=== PATIENT | female | born 1980 | race Caucasian/White ===

== ENCOUNTER 2017-01-12 12:20 | Emergency (ER) | payer OTHER ==
[2017-01-12 12:31] VITALS: TEMP 98.5
--- NOTE | 2017-01-12 13:08 | XR ---
EXAMINATION TYPE: XR foot complete LT DATE OF EXAM: 01/12/2017 12:57 PM COMPARISON: 11/14/2016 HISTORY: 36-year-old female left second digit pain and bruising after crushing injury yesterday TECHNIQUE: 3 views FINDINGS: There is a Lima's toe and an oblique fracture through the proximal aspect of the second middle phal anx. There is minimal cortical step-off medially but otherwise without significant displacement. IMPRESSION: Oblique fracture of the second middle phalanx. No significant displacement. ICD 10: Initial encounter acute post traumatic fracture.
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
[2017-01-12 13:33] VITALS: BP 144/80; PULSE 70; RESP 18
== END 2017-01-12 13:32 | disposition home or self-care (01) ==
LOC: EC 12:20
DX: S92.515A Nondisplaced fracture of proximal phalanx of left lesser toe(s), initial encounter for closed fracture (principal); W23.0XXA Caught, crushed, jammed, or pinched between moving objects, initial encounter; J44.9 Chronic obstructive pulmonary disease, unspecified; M79.7 Fibromyalgia; F32.9 Major depressive disorder, single episode, unspecified; F41.9 Anxiety disorder, unspecified; Z79.51 Long term (current) use of inhaled steroids; Z79.899 Other long term (current) drug therapy; Z91.041 Radiographic dye allergy status; Z88.8 Allergy status to other drugs, medicaments and biological substances
CPT/HCPCS: 99283

== ENCOUNTER 2017-10-14 23:06 | Emergency (ER) | payer OTHER ==
[2017-10-14 23:16] VITALS: BP 135/96; PULSE 97; RESP 18; TEMP 98.8
[2017-10-14] MEDS ORDERED: IBUPROFEN 600 MG STARTER PACK 4 TAB BTL PO STA (23:49)
[2017-10-14] MEDS ORDERED: AMOXIC-POT CLAV 875MG STARTER 2 EACH TABLET PO STA (23:49)
--- NOTE | 2017-10-14 23:49 | ED ---
General Adult HPI - General Chief complaint: ENT Stated complaint: ear pain/dizzy Time Seen by Provider: 10/14/17 23:38 Source: patient, family, RN notes reviewed Mode of arrival: ambulatory Limitations: no limitations - History of Present Illness Initial comments: 37 yo female presents to the ER with cc of right-sided ear pain. She states that this started today. Since a long history of ear infections she's had surgery on the ear canal in the past. She denies any fever chills cough cold symptoms. She states she is having this throbbing pain to the ear. There is no nausea or vomiting. She was concerned due to her continued symptoms so she thought that she should be evaluated. Patient denies any recent shortness of breath, chest pain, back pain, abdominal pain, nausea vomiting, numbness or tingling, dysuria or hematuria, constipation or diarrhea, headaches or visual changes, or any other current symptoms. - Related Data Home Medications Medication Instructions Recorded Confirmed Albuterol Inhaler [Ventolin 2 puff INHALATION RT-Q4H PRN 05/15/14 10/14/17 Inhaler] Beclomethasone Dipropionate [Qvar 1 puff INHALATION RT-BID 05/15/14 10/14/17 80 mcg/puff] Albuterol Nebulized [Ventolin 2.5 mg INHALATION RT-Q4H PRN 07/20/16 10/14/17 Nebulized] Medroxyprogesterone Acetate 150 mg IM Q90D 10/14/17 10/14/17 [Depo-Provera] Paxil (Unknown Dose) 1 tab PO DAILY 10/14/17 10/14/17 Wellbutrin (Unknown Dose) 1 tab PO DAILY 10/14/17 10/14/17 Previous Rx's Medication Instructions Recorded Amoxicillin/Potassium Clav 1 tab PO Q12HR #20 tab 10/14/17 [Augmentin 875-125 Tablet] Allergies Allergy/AdvReac Type Severity Reaction Status Date / Time ascorbic acid Allergy Anaphylaxis Verified 10/14/17 23:16 [From Emergen-C Vitamin D-Calcium] calcium combination no.27 Allergy Anaphylaxis Verified 10/14/17 23:16 [From Emergen-C Vitamin D-Calcium] cholecalciferol (vitamin D3) Allergy Anaphylaxis Verified 10/14/17 23:16 [From Emergen-C Vitamin D-Calcium] diphenhydramine HCl Allergy Anaphylaxis Verified 10/14/17 23:41 [From Benadryl] Iodinated Contrast- Oral and Allergy Anaphylaxis Verified 10/14/17 23:16 IV Dye [Iodinated Contrast Media - IV Dye] methylprednisolone Allergy Rash/Hives Verified 10/14/17 23:16 [From Medrol] multivitamin with minerals Allergy Anaphylaxis Verified 10/14/17 23:16 [From Emergen-C Vitamin D-Calcium] Review of Systems ROS Statement: Those systems with pertinent positive or pertinent negative responses have been documented in the HPI. ROS Other: All systems not noted in ROS Statement are negative. Past Medical History Past Medical History: Asthma, COPD, Fibromyalgia Additional Past Medical History / Comment(s): DDD, tmj History of Any Multi-Drug Resistant Organisms: None Reported Past Surgical History: Adenoidectomy, Cholecystectomy, Ear Surgery, Tonsillectomy Past Psychological History: Anxiety, Depression Smoking Status: Never smoker Past Alcohol Use History: None Reported Past Drug Use History: None Reported General Exam - General Exam Comments Initial Comments: General exam: Alert, active, comfortable in no apparent distress Head: Normocephalic Eyes: Normal reaction of pupils, equal size, normal range of extraocular motion Ears: normal external ear canals, pink tympanic membranes with normal cone of light on the left, patient does appear to have a bulging erythematous right tympanic membrane. Nose: clear with pink turbinates Throat: no erythema or exudates with normal sized tonsils Neck: no masses, no nuchal rigidity Chest: no chest wall deformity Lungs: equal air entry with no crackles or wheeze CVS: S1 and S2 normal with no audible mumurs, regular rhythm Abdomen: no hepatosplenomegaly, normal bowel sounds, no guarding or rigidity Spine: no scoliosis or deformity Skin: no rashes Neurological: No focal deficits, tone is normal in all 4 extremities Limitations: no limitations Course Vital Signs 10/14/17 23:14 Temperature 98.8 F Pulse Rate 97 Respiratory 18 Rate Blood Pressure 135/96 O2 Sat by Pulse 98 Oximetry Medical Decision Making - Medical Decision Making 37-year-old female presents with what appears to be a right otitis media. This elicits patient antibiotics for home. We discussed follow-up return parameters all questions. Patient stated that she understood and she is in agreement this plan. All questions have been answered. She will be discharged. Disposition Clinical Impression: Right otitis media Disposition: HOME SELF-CARE Condition: Stable Instructions: Otitis Media (ED) Additional Instructions: Please use medication as discussed. Please follow up with family doctor if symptoms have not improved over the next two days. Please return to the emergency room if your symptoms increase or worsen or for any other concerns. Prescriptions: Amoxicillin/Potassium Clav [Augmentin 875-125 Tablet] 1 tab PO Q12HR #20 tab Referrals: Terence Mota MD [Primary Care Provider] - 1-2 days Time of Disposition: 23:49
== END 2017-10-15 00:04 | disposition home or self-care (01) ==
LOC: EC 23:06
DX: H66.91 Otitis media, unspecified, right ear (principal); J44.9 Chronic obstructive pulmonary disease, unspecified; F32.9 Major depressive disorder, single episode, unspecified; F41.9 Anxiety disorder, unspecified; Z79.3 Long term (current) use of hormonal contraceptives; Z79.51 Long term (current) use of inhaled steroids; Z79.899 Other long term (current) drug therapy; Z88.8 Allergy status to other drugs, medicaments and biological substances; Z91.041 Radiographic dye allergy status; Z98.890 Other specified postprocedural states
CPT/HCPCS: 99282

== ENCOUNTER 2018-01-28 17:17 | Emergency (ER) | payer OTHER ==
[2018-01-28 17:48] VITALS: RESP 18; TEMP 99
[2018-01-28] MEDS ORDERED: ACETAMINOPHEN TAB 500 MG TAB PO STA (18:03)
[2018-01-28] MEDS ORDERED: IPRATROPIUM-ALBUTEROL 3 ML NEB INHALATION STA (18:03)
--- NOTE | 2018-01-28 18:25 | XR ---
EXAMINATION TYPE: XR ribs LT w pa chest xray DATE OF EXAM: 01/28/2018 COMPARISON: 09/19/2016 HISTORY: Pain TECHNIQUE: 5 views FINDINGS: Heart and mediastinum are normal. Lungs are clear. There is no sign of pleural effusion or pneumothorax. The left ribs appear intact. IMPRESSION: Normal chest. Normal left ribs.
[2018-01-28 18:37] VITALS: PULSE 96
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
== END 2018-01-28 19:02 | disposition home or self-care (01) ==
LOC: EC 17:17
DX: S20.212A Contusion of left front wall of thorax, initial encounter (principal); R51 Headache; J44.9 Chronic obstructive pulmonary disease, unspecified; F41.9 Anxiety disorder, unspecified; F32.9 Major depressive disorder, single episode, unspecified; Z79.51 Long term (current) use of inhaled steroids; Z79.899 Other long term (current) drug therapy; V89.2XXA Person injured in unspecified motor-vehicle accident, traffic, initial encounter
CPT/HCPCS: 94640; 99284

== ENCOUNTER 2018-02-19 16:52 | Emergency (ER) | payer OTHER ==
[2018-02-19 17:02] VITALS: RESP 16
[2018-02-19] MEDS ORDERED: ASPIRIN 81 MG PO STA (17:14)
[2018-02-19] MEDS ORDERED: SODIUM CHLORIDE 0.9% 1,000 ML IV STA (17:14)
[2018-02-19] MEDS ORDERED: IPRATROPIUM-ALBUTEROL 3 ML NEB INHALATION STA (17:15)
[2018-02-19 17:39] LABS: Basophils % (A) 0 %; Eosinophils # (A) 0.3 k/uL (0-0.7); Eosinophils % (A) 4 %; HCT 38.1 % (34.0-46.0); HGB 13.3 gm/dL (11.4-16.0); Lymphocytes # (A) 1.6 k/uL (1.0-4.8); Lymphocytes % (A) 22 %; MCH 31.4 pg (25.0-35.0); MCHC 34.8 g/dL (31.0-37.0); MCV 90.1 fL (80.0-100.0); Mean Platelet Volume 7.9; Monocytes # (A) 0.3 k/uL (0-1.0); Monocytes % (A) 4 %; Neutrophils # (A) 5.1 k/uL (1.3-7.7); Neutrophils % (A) 69 %; Platelet Count 215 k/uL (150-450); RBC 4.23 m/uL (3.80-5.40); RDW 13.8 % (11.5-15.5); WBC 7.5 k/uL (3.8-10.6)
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
[2018-02-19 17:49] LABS: ALT 30 U/L (9-52); AST 25 U/L (14-36); Albumin 3.8 g/dL (3.5-5.0); Alkaline Phosphatase 113 U/L (38-126); Anion Gap 12 mmol/L; Blood Urea Nitrogen 12 mg/dL (7-17); Calcium 8.8 mg/dL (8.4-10.2); Carbon Dioxide 22 mmol/L (22-30); Chloride 107 mmol/L (98-107); Glucose 77 mg/dL (74-99); Magnesium 1.9 mg/dL (1.6-2.3); Potassium 4.1 mmol/L (3.5-5.1); Sodium 141 mmol/L (137-145); Total Bilirubin 0.4 mg/dL (0.2-1.3); Total Protein 6.4 g/dL (6.3-8.2)
[2018-02-19 17:54] LABS: Creatine Kinase 139 U/L (30-135)
--- NOTE | 2018-02-19 17:57 | XR ---
EXAMINATION: XR chest 2V DATE AND TIME: 02/19/2018 5:48 PM ORDERING PROVIDER: Eliza Leblanc CLINICAL INDICATION: Chest Pain TECHNIQUE: PA and lateral COMPARISON: 01/28/2018 DESCRIPTION: The lungs are clear. The pleural spaces are negative. The cardiac silhouette is not enlarged. The skeletal structures are intact without focal findings. The overlying soft tissues are prominent. IMPRESSION: NO ACUTE PROCESS.
[2018-02-19 18:04] LABS: D-Dimer 0.23 mg/L FEU (<0.60); Partial Thromboplastin Time 24.1 sec (22.0-30.0); Prothrombin Time 9.8 sec (9.0-12.0)
[2018-02-19 18:08] LABS: Creatine Kinase MB 0.8 ng/mL (0.0-2.4); Troponin I <0.012 ng/mL (0.000-0.034)
[2018-02-19 18:36] VITALS: BP 144/86; PULSE 93; TEMP 98.9
== END 2018-02-19 18:35 | disposition home or self-care (01) ==
LOC: EC 16:52
DX: R07.1 Chest pain on breathing (principal); R11.0 Nausea; R06.02 Shortness of breath; J44.9 Chronic obstructive pulmonary disease, unspecified; F32.9 Major depressive disorder, single episode, unspecified; F41.9 Anxiety disorder, unspecified; Z79.51 Long term (current) use of inhaled steroids; Z79.899 Other long term (current) drug therapy; Z88.8 Allergy status to other drugs, medicaments and biological substances; Z91.041 Radiographic dye allergy status; Z53.8 Procedure and treatment not carried out for other reasons
CPT/HCPCS: 36415; 71046; 80053; 82550; 82553; 83735; 84484; 85025; 85379; 85610; 85730; 93005; 94640; 96360; 99285

== ENCOUNTER 2018-06-28 12:59 | Emergency (ER) | payer OTHER ==
[2018-06-28 13:14] VITALS: BP 119/85; PULSE 104; RESP 18; TEMP 98.5
--- NOTE | 2018-06-28 13:49 | ED ---
General Adult HPI - General Chief complaint: Back Pain/Injury Stated complaint: back pain Time Seen by Provider: 06/28/18 13:32 Source: patient, RN notes reviewed Mode of arrival: ambulatory Limitations: physical limitation - History of Present Illness Initial comments: Patient is a 38-year-old female with significant past medical history for low back pain, presented to the emergency room today with chief complaint of increased pain to her lower back and left side. She does admit some numbness and tingling sensation going down the left and right legs. She states this started just 2 days ago. She does admit that she is not had any bowel or bladder incontinence retention. Denies any saddle anesthesia. Patient states that she's been trying ibuprofen and some topical creams with little relief. She does admit that is worse with movements of bending, turning, and twisting. Patient denies any specific injury or trauma to cause the symptoms. Patient denies any recent fever, chills, shortness of breath, chest pain, abdominal pain , nausea or vomiting, dysuria or hematuria, constipation or diarrhea, headaches or visual changes, or any other complaints. - Related Data Home Medications Medication Instructions Recorded Confirmed Albuterol Inhaler [Ventolin 2 puff INHALATION RT-Q4H PRN 05/15/14 02/19/18 Inhaler] Beclomethasone Dipropionate [Qvar 2 puff INHALATION RT-BID 05/15/14 02/19/18 80 mcg/puff] Albuterol Nebulized [Ventolin 2.5 mg INHALATION RT-Q4H PRN 07/20/16 02/19/18 Nebulized] Medroxyprogesterone Acetate 150 mg IM Q90D 10/14/17 02/19/18 [Depo-Provera] PARoxetine HCL [Paxil] 40 mg PO DAILY 02/19/18 02/19/18 buPROPion HCL [Wellbutrin Sr] 200 mg PO DAILY 02/19/18 02/19/18 Previous Rx's Medication Instructions Recorded Ibuprofen 600 mg PO Q6HR #20 tablet 02/19/18 Acetaminophen Tab [Tylenol] 1,000 mg PO TID 5 Days tablet 06/28/18 Cyclobenzaprine [Flexeril] 10 mg PO TID #20 tab 06/28/18 Ibuprofen [Motrin] 800 mg PO Q6HR #30 tab 06/28/18 predniSONE 50 mg PO DAILY #5 tab 06/28/18 Allergies Allergy/AdvReac Type Severity Reaction Status Date / Time ascorbic acid Allergy Anaphylaxis Verified 06/28/18 13:14 [From Emergen-C Vitamin D-Calcium] calcium combination no.27 Allergy Anaphylaxis Verified 06/28/18 13:14 [From Emergen-C Vitamin D-Calcium] cholecalciferol (vitamin D3) Allergy Anaphylaxis Verified 06/28/18 13:14 [From Emergen-C Vitamin D-Calcium] diphenhydramine HCl Allergy Anaphylaxis Verified 06/28/18 13:14 [From Benadryl] Iodinated Contrast- Oral and Allergy Anaphylaxis Verified 06/28/18 13:14 IV Dye [Iodinated Contrast Media - IV Dye] methylprednisolone Allergy Rash/Hives Verified 06/28/18 13:14 [From Medrol] multivitamin with minerals Allergy Anaphylaxis Verified 06/28/18 13:14 [From Emergen-C Vitamin D-Calcium] Review of Systems ROS Statement: Those systems with pertinent positive or pertinent negative responses have been documented in the HPI. ROS Other: All systems not noted in ROS Statement are negative. Past Medical History Past Medical History: Asthma, COPD, Fibromyalgia Additional Past Medical History / Comment(s): DDD, tmj History of Any Multi-Drug Resistant Organisms: None Reported Past Surgical History: Adenoidectomy, Cholecystectomy, Ear Surgery, Tonsillectomy Past Psychological History: Anxiety, Depression Smoking Status: Never smoker Past Alcohol Use History: None Reported Past Drug Use History: None Reported General Exam - General Exam Comments Initial Comments: General: The patient is awake and alert, in no distress, and does not appear acutely ill. Eye: Pupils are equal, round and reactive to light, extra-ocular movements are intact. No nystagmus. There is normal conjunctiva bilaterally. No signs of icterus. Ears, nose, mouth and throat: There are moist mucous membranes and no oral lesions. Neck: The neck is supple, there is no tenderness or JVD. Cardiovascular: There is a regular rate and rhythm. No murmur, rub or gallop is appreciated. Respiratory: Lungs are clear to auscultation, respirations are non-labored, breath sounds are equal. No wheezes, stridor, rales, or rhonchi. Musculoskeletal: Has good range of motion. Patient does have tenderness throughout the lumbar spine and paravertebral both on left and right sides. Strength 5/5. Sensation intact. Pulses equal bilaterally 2+. Neurological: A&O x 3. CN II-XII intact, There are no obvious motor or sensory deficits. Coordination appears grossly intact. Speech is normal. Skin: Skin is warm and dry and no rashes or lesions are noted. Psychiatric: Cooperative, appropriate mood & affect, normal judgment. Limitations: physical limitation Course Vital Signs 06/28/18 13:12 Temperature 98.5 F Pulse Rate 104 H Respiratory 18 Rate Blood Pressure 119/85 O2 Sat by Pulse 95 Oximetry Medical Decision Making - Medical Decision Making Patient has no bowel or bladder incontinence retention. No saddle anesthesia. Patient does have pain reproduced lower lumbar on exam. Signs and symptoms of concern and reason for emergent MRI were discussed. Patient is advised follow- up the family doctor in the next 1-2 days to discuss a MRI for the symptoms if they're not improving. Patient will be started on muscle relaxers, anti- inflammatories, and steroid for her symptoms. Advised to return if any symptoms increase or worsen or for any concerns. Disposition Clinical Impression: Acute exacerbation of chronic low back pain Disposition: HOME SELF-CARE Condition: Good Instructions: Acute Low Back Pain (ED) Additional Instructions: Please follow-up the family physician and back specialist over the next 2 days. Please use medications as prescribed. Please return to emergency room symptoms increase or worsen as discussed. Prescriptions: Acetaminophen Tab [Tylenol] 1,000 mg PO TID 5 Days tablet Cyclobenzaprine [Flexeril] 10 mg PO TID #20 tab Ibuprofen [Motrin] 800 mg PO Q6HR #30 tab predniSONE 50 mg PO DAILY #5 tab Is patient prescribed a controlled substance at d/c from ED?: No Referrals: Juanito Gutierrez Jr, DO [Primary Care Provider] - 1-2 days Time of Disposition: 13:46
== END 2018-06-28 14:10 | disposition home or self-care (01) ==
LOC: EC 12:59
DX: G89.29 Other chronic pain (principal); M54.5 Low back pain; R20.2 Paresthesia of skin; J44.9 Chronic obstructive pulmonary disease, unspecified; M79.7 Fibromyalgia; F41.9 Anxiety disorder, unspecified; F32.9 Major depressive disorder, single episode, unspecified; Z90.49 Acquired absence of other specified parts of digestive tract; Z98.890 Other specified postprocedural states; Z79.3 Long term (current) use of hormonal contraceptives; Z79.51 Long term (current) use of inhaled steroids; Z79.899 Other long term (current) drug therapy; Z88.8 Allergy status to other drugs, medicaments and biological substances; Z91.041 Radiographic dye allergy status
CPT/HCPCS: 99283

== ENCOUNTER 2018-09-10 21:29 | Emergency (ER) | payer OTHER ==
[2018-09-10] MEDS ORDERED: ACETAMINOPHEN TAB 325 MG TAB PO STA (22:40)
[2018-09-10] MEDS ORDERED: IBUPROFEN 400 MG TAB PO STA (22:40)
--- NOTE | 2018-09-10 22:46 | ED ---
General Adult HPI - General Chief complaint: Recheck/Abnormal Lab/Rx Stated complaint: All over pain Time Seen by Provider: 09/10/18 21:53 Source: patient Mode of arrival: ambulatory Limitations: no limitations - History of Present Illness Initial comments: This patient is a 38-year-old woman who presents to be evaluated for diffuse myalgias. The patient states that she started feeling symptoms coming on a bit afternoon. She states she was having some aching in the back muscles and the shoulder muscles. I subsequently also having aches in the hips and thighs. She states that it felt like fibromyalgia but she didn't think she had done anything to cause an exacerbation. Patient also was feeling hot and cold and when she came here was found have fever. She denied other symptoms of infection , including no congestion and cough or sore throat. No ear pain. No cough or dyspnea. No urinary symptoms. No vomiting or diarrhea. No rash. -: hour(s) Quality: aching Consistency: constant Improves with: none Worsens with: movement Associated Symptoms: fever/chills Treatments Prior to Arrival: none - Related Data Home Medications Medication Instructions Recorded Confirmed Albuterol Inhaler [Ventolin 2 puff INHALATION RT-Q4H PRN 05/15/14 09/10/18 Inhaler] Albuterol Nebulized [Ventolin 2.5 mg INHALATION RT-Q4H PRN 07/20/16 09/10/18 Nebulized] Previous Rx's Medication Instructions Recorded Cyclobenzaprine [Flexeril] 10 mg PO TID #15 tab 09/11/18 predniSONE 20 mg PO BID #8 tab 09/11/18 Allergies Allergy/AdvReac Type Severity Reaction Status Date / Time ascorbic acid Allergy Anaphylaxis Verified 09/10/18 21:43 [From Emergen-C Vitamin D-Calcium] calcium combination no.27 Allergy Anaphylaxis Verified 09/10/18 21:43 [From Emergen-C Vitamin D-Calcium] cholecalciferol (vitamin D3) Allergy Anaphylaxis Verified 09/10/18 21:43 [From Emergen-C Vitamin D-Calcium] diphenhydramine HCl Allergy Anaphylaxis Verified 09/10/18 21:43 [From Benadryl] Iodinated Contrast- Oral and Allergy Anaphylaxis Verified 09/10/18 21:43 IV Dye [Iodinated Contrast Media - IV Dye] methylprednisolone Allergy Rash/Hives Verified 09/10/18 21:43 [From Medrol] multivitamin with minerals Allergy Anaphylaxis Verified 09/10/18 21:43 [From Emergen-C Vitamin D-Calcium] Review of Systems ROS Statement: Those systems with pertinent positive or pertinent negative responses have been documented in the HPI. ROS Other: All systems not noted in ROS Statement are negative. Constitutional: Reports: fever, chills Eyes: Denies: vision change ENT: Denies: ear pain, throat pain, congestion Respiratory: Denies: cough, dyspnea Cardiovascular: Denies: chest pain, palpitations, syncope Gastrointestinal: Denies: abdominal pain, nausea, vomiting Genitourinary: Denies: dysuria, frequency, hematuria Musculoskeletal: Reports: myalgia Skin: Denies: rash Neurological: Denies: headache, weakness, numbness Past Medical History Past Medical History: Asthma, COPD, Fibromyalgia Additional Past Medical History / Comment(s): DDD, tmj History of Any Multi-Drug Resistant Organisms: None Reported Past Surgical History: Adenoidectomy, Cholecystectomy, Ear Surgery, Tonsillectomy Past Psychological History: Anxiety, Depression Smoking Status: Never smoker Past Alcohol Use History: None Reported Past Drug Use History: None Reported General Exam Limitations: no limitations General appearance: alert, in no apparent distress, obese Head exam: Present: atraumatic, normocephalic Eye exam: Present: normal appearance. Absent: scleral icterus, conjunctival injection ENT exam: Present: normal oropharynx, mucous membranes moist, TM's normal bilaterally, normal external ear exam Neck exam: Present: normal inspection, full ROM, lymphadenopathy. Absent: tenderness, meningismus Respiratory exam: Present: wheezes (Mild expiratory wheeze). Absent: respiratory distress, rales, rhonchi, stridor Cardiovascular Exam: Present: regular rate, normal rhythm, normal heart sounds. Absent: systolic murmur, diastolic murmur, rubs, gallop GI/Abdominal exam: Present: soft. Absent: distended, tenderness, guarding, rebound, rigid, mass Extremities exam: Present: normal inspection, normal capillary refill. Absent: pedal edema, calf tenderness Back exam: Present: normal inspection. Absent: CVA tenderness (R), CVA tenderness (L) Skin exam: Present: warm, dry, intact, normal color. Absent: rash Course Vital Signs 09/10/18 09/10/18 09/11/18 21:32 23:35 00:47 Temperature 101.0 F H 99.9 F H Pulse Rate 118 H 118 H 109 H Respiratory 20 18 Rate Blood Pressure 157/86 126/88 O2 Sat by Pulse 96 95 Oximetry Medical Decision Making - Lab Data Result diagrams: 09/10/18 21:54 09/10/18 21:54 Lab Results 09/10/18 09/10/18 09/10/18 Range/Units 21:54 21:54 21:54 WBC 4.0 (3.8-10.6) k/uL RBC 4.37 (3.80-5.40) m/uL Hgb 13.9 (11.4-16.0) gm/dL Hct 40.2 (34.0-46.0) % MCV 91.9 (80.0-100.0) fL MCH 31.8 (25.0-35.0) pg MCHC 34.6 (31.0-37.0) g/dL RDW 13.4 (11.5-15.5) % Plt Count 150 (150-450) k/uL Neutrophils % 79 % Lymphocytes % 13 % Monocytes % 5 % Eosinophils % 1 % Basophils % 0 % Neutrophils # 3.2 (1.3-7.7) k/uL Lymphocytes # 0.5 L (1.0-4.8) k/uL Monocytes # 0.2 (0-1.0) k/uL Eosinophils # 0.1 (0-0.7) k/uL Basophils # 0.0 (0-0.2) k/uL Sodium 139 (137-145) mmol/L Potassium 4.4 (3.5-5.1) mmol/L Chloride 105 (98-107) mmol/L Carbon Dioxide 24 (22-30) mmol/L Anion Gap 10 mmol/L BUN 12 (7-17) mg/dL Creatinine 0.83 (0.52-1.04) mg/dL Est GFR (CKD-EPI)AfAm >90 (>60 ml/min/1.73 sqM) Est GFR (CKD-EPI)NonAf >90 (>60 ml/min/1.73 sqM) Glucose 105 H (74-99) mg/dL Calcium 9.7 (8.4-10.2) mg/dL Urine Color Urine Appearance (Clear) Urine pH (5.0-8.0) Ur Specific Elysian (1.001-1.035) Urine Protein (Negative) Urine Glucose (UA) (Negative) Urine Ketones (Negative) Urine Blood (Negative) Urine Nitrite (Negative) Urine Bilirubin (Negative) Urine Urobilinogen (<2.0) mg/dL Ur Leukocyte Esterase (Negative) Urine RBC (0-5) /hpf Urine WBC (0-5) /hpf Ur Squamous Epith Cells (0-4) /hpf Amorphous Sediment (None) /hpf Urine Bacteria (None) /hpf Urine Mucus (None) /hpf Urine HCG, Qual Not Detected (Not Detectd) Influenza Type A RNA (Not Detectd) Influenza Type B (PCR) (Not Detectd) 09/10/18 09/10/18 Range/Units 21:54 21:54 WBC (3.8-10.6) k/uL RBC (3.80-5.40) m/uL Hgb (11.4-16.0) gm/dL Hct (34.0-46.0) % MCV (80.0-100.0) fL MCH (25.0-35.0) pg MCHC (31.0-37.0) g/dL RDW (11.5-15.5) % Plt Count (150-450) k/uL Neutrophils % % Lymphocytes % % Monocytes % % Eosinophils % % Basophils % % Neutrophils # (1.3-7.7) k/uL Lymphocytes # (1.0-4.8) k/uL Monocytes # (0-1.0) k/uL Eosinophils # (0-0.7) k/uL Basophils # (0-0.2) k/uL Sodium (137-145) mmol/L Potassium (3.5-5.1) mmol/L Chloride (98-107) mmol/L Carbon Dioxide (22-30) mmol/L Anion Gap mmol/L BUN (7-17) mg/dL Creatinine (0.52-1.04) mg/dL Est GFR (CKD-EPI)AfAm (>60 ml/min/1.73 sqM) Est GFR (CKD-EPI)NonAf (>60 ml/min/1.73 sqM) Glucose (74-99) mg/dL Calcium (8.4-10.2) mg/dL Urine Color Yellow Urine Appearance Cloudy H (Clear) Urine pH 8.0 (5.0-8.0) Ur Specific Elysian 1.016 (1.001-1.035) Urine Protein Negative (Negative) Urine Glucose (UA) Negative (Negative) Urine Ketones Negative (Negative) Urine Blood Negative (Negative) Urine Nitrite Negative (Negative) Urine Bilirubin Negative (Negative) Urine Urobilinogen <2.0 (<2.0) mg/dL Ur Leukocyte Esterase Small H (Negative) Urine RBC 3 (0-5) /hpf Urine WBC 20 H (0-5) /hpf Ur Squamous Epith Cells 9 H (0-4) /hpf Amorphous Sediment Rare H (None) /hpf Urine Bacteria Few H (None) /hpf Urine Mucus Rare H (None) /hpf Urine HCG, Qual (Not Detectd) Influenza Type A RNA Not Detected (Not Detectd) Influenza Type B (PCR) Not Detected (Not Detectd) Disposition Clinical Impression: Viral syndrome Disposition: HOME SELF-CARE Condition: Good Instructions: Fever in Adults (ED), Viral Syndrome (ED) Prescriptions: Cyclobenzaprine [Flexeril] 10 mg PO TID #15 tab predniSONE 20 mg PO BID #8 tab Is patient prescribed a controlled substance at d/c from ED?: No Referrals: Juanito Gutierrez Jr, [Primary Care Provider] - 1-2 days
[2018-09-10] MEDS ORDERED: ALBUTEROL NEBULIZED 2.5 MG/3 ML INHALATION STA (22:56)
[2018-09-10 22:58] LABS: Basophils % (A) 0 %; Eosinophils # (A) 0.1 k/uL (0-0.7); Eosinophils % (A) 1 %; HCT 40.2 % (34.0-46.0); HGB 13.9 gm/dL (11.4-16.0); Lymphocytes # (A) 0.5 k/uL (1.0-4.8); Lymphocytes % (A) 13 %; MCH 31.8 pg (25.0-35.0); MCHC 34.6 g/dL (31.0-37.0); MCV 91.9 fL (80.0-100.0); Mean Platelet Volume 7.6; Monocytes # (A) 0.2 k/uL (0-1.0); Monocytes % (A) 5 %; Neutrophils # (A) 3.2 k/uL (1.3-7.7); Neutrophils % (A) 79 %; Platelet Count 150 k/uL (150-450); RBC 4.37 m/uL (3.80-5.40); RDW 13.4 % (11.5-15.5)
[2018-09-10 23:03] LABS: Amorphous Sediment,Urine Rare /hpf; Appearance,Urine Cloudy (Clear); Bacteria,Urine Few /hpf; Bilirubin,Urine Negative (Negative); Blood,Urine Negative (Negative); Color,Urine Yellow; Glucose,Urine (UA) Negative (Negative); Ketones,Urine Negative (Negative); Leukocyte Esterase,Urine Small (Negative); Mucus,Urine Rare /hpf; Nitrite,Urine Negative (Negative); Protein,Urine Negative (Negative); RBC,Urine 3 /hpf (0-5); Specific Gravity,Urine 1.016 (1.001-1.035); Squamous Epithelial Cell,Urine 9 /hpf (0-4); Urobilinogen,Urine <2.0 mg/dL (<2.0); WBC,Urine 20 /hpf (0-5)
[2018-09-10 23:07] LABS: Anion Gap 10 mmol/L; Blood Urea Nitrogen 12 mg/dL (7-17); Calcium 9.7 mg/dL (8.4-10.2); Carbon Dioxide 24 mmol/L (22-30); Chloride 105 mmol/L (98-107); Glucose 105 mg/dL (74-99); Potassium 4.4 mmol/L (3.5-5.1); Sodium 139 mmol/L (137-145)
[2018-09-11 00:48] VITALS: BP 126/88; PULSE 109; RESP 18; TEMP 99.9
[2018-09-11] MEDS ORDERED: CYCLOBENZAPRINE 10 MG TAB PO STA (01:15)
== END 2018-09-11 01:35 | disposition home or self-care (01) ==
LOC: EC 21:29
DX: B34.9 Viral infection, unspecified (principal); J44.9 Chronic obstructive pulmonary disease, unspecified; Z88.8 Allergy status to other drugs, medicaments and biological substances; Z91.041 Radiographic dye allergy status
CPT/HCPCS: 36415; 80048; 81001; 81025; 85025; 87502; 94640; 99284

== ENCOUNTER → 2018-12-01 | Outpatient (CLI) | payer OTHER ==
--- NOTE | 2018-12-01 16:43 | MR ---
EXAMINATION TYPE: MR joceline/kristin wo con DATE OF EXAM: 12/01/2018 COMPARISON: None HISTORY: Pain in thoracic spine / Low back pain CONTRAST: Performed utilizing 0 mL intravenous Gadavist gadolinium contrast. TECHNIQUE: Multiplanar, multiecho imaging on a 3.0 Linnette magnet is performed through the thoracic spi ne. Spinal cord maintains normal signal through its visualized course. Vertebral body alignment is normal. Vertebral body heights are preserved. There is a very tiny central protrusion at T7-8. Series 601 image 17. No significant thecal sac compr ession is evident. No cord contact or spinal canal stenosis is present. Disc heights appear preserved . There is disc desiccation T9-10. Disc height is preserved. No spinal canal stenosis is evident. IMPRESSIONS: 1. There may be a very tiny central protrusion at the T7-8 region. 2. Disc desiccation T9-T10. EXAMINATION TYPE: MR joceline/kristin wo con DATE OF EXAM: 12/01/2018 COMPARISON: 05/14/2013 HISTORY: Pain in thoracic spine / Low back pain CONTRAST: 0 mL intravenous Gadavist. TECHNIQUE: Multiplanar, multisequence images of the lumbar spine were acquired. FINDINGS: L5-S1: Central disc herniation is present with broad base. This has anterior thecal sac contact witho ut compression or stenosis. Exiting nerve roots appear nondisplaced. This area appears smaller than t he comparison of 2012. There is mild disc space narrowing and disc desiccation to this level. L4-L5: No significant disc bulge or disc herniation. No spinal canal stenosis. No foraminal stenosi s. L3-L4: No significant disc bulge or disc herniation. No spinal canal stenosis. No foraminal stenosi s. L2-L3: There is disc desiccation through this level. Mild disc space narrowing is present. No signifi cant disc bulge or disc herniation is evident. No spinal canal stenosis or neural foraminal stenosis is present. L1-L2: No significant disc bulge or disc herniation. No spinal canal stenosis. No foraminal stenosi s. T12-L1: No significant disc bulge or disc herniation. No spinal canal stenosis. No foraminal stenos is. IMPRESSION: 1. Broad-based central disc herniation L5-S1 appears smaller than the comparison study. This has thec al sac contact without compression or stenosis. 2. Stable mild disc space narrowing L2-L3 with disc desiccation, unchanged from 2013.
== END ==
LOC: RADMRIMAIN 10:21
PROVIDERS: ATTEND Family Medicine
DX: M48.061 Spinal stenosis, lumbar region without neurogenic claudication (principal); M51.27 Other intervertebral disc displacement, lumbosacral region; M54.6 Pain in thoracic spine
CPT/HCPCS: 72146; 72148

== ENCOUNTER 2018-12-31 14:46 | Emergency (ER) | payer OTHER ==
[2018-12-31 14:51] VITALS: RESP 18; TEMP 98.2
[2018-12-31] MEDS ORDERED: KETOROLAC 60 MG/2 ML VIAL IM STA (15:45)
--- NOTE | 2018-12-31 15:47 | ED ---
General Adult HPI - General Chief complaint: ENT Stated complaint: Pressure behind ear into jaw and side of neck Source: patient, RN notes reviewed Mode of arrival: ambulatory Limitations: no limitations - History of Present Illness Initial comments: Patient is a 38-year-old female with history of left TM surgery and TMJ disorder who presents to the emergency department with complaint of bilateral ear pain and jaw pain that started yesterday. She reports taking Tylenol one hour ago and ibuprofen at 4 AM. Patient denies any recent fever, chills, runny nose or nasal congestion, shortness of breath, chest pain, back pain, abdominal pain, nausea or vomiting, numbness or tingling, headaches or visual changes, or any other complaints. - Related Data Home Medications Medication Instructions Recorded Confirmed Albuterol Inhaler [Ventolin 2 puff INHALATION RT-Q4H PRN 05/15/14 09/10/18 Inhaler] Albuterol Nebulized [Ventolin 2.5 mg INHALATION RT-Q4H PRN 07/20/16 09/10/18 Nebulized] Previous Rx's Medication Instructions Recorded Cyclobenzaprine [Flexeril] 10 mg PO TID #15 tab 09/11/18 predniSONE 20 mg PO BID #8 tab 09/11/18 Allergies Allergy/AdvReac Type Severity Reaction Status Date / Time ascorbic acid Allergy Anaphylaxis Verified 09/10/18 21:43 [From Emergen-C Vitamin D-Calcium] calcium combination no.27 Allergy Anaphylaxis Verified 09/10/18 21:43 [From Emergen-C Vitamin D-Calcium] cholecalciferol (vitamin D3) Allergy Anaphylaxis Verified 09/10/18 21:43 [From Emergen-C Vitamin D-Calcium] diphenhydramine HCl Allergy Anaphylaxis Verified 09/10/18 21:43 [From Benadryl] Iodinated Contrast- Oral and Allergy Anaphylaxis Verified 09/10/18 21:43 IV Dye [Iodinated Contrast Media - IV Dye] methylprednisolone Allergy Rash/Hives Verified 09/10/18 21:43 [From Medrol] multivitamin with minerals Allergy Anaphylaxis Verified 09/10/18 21:43 [From Emergen-C Vitamin D-Calcium] Review of Systems ROS Statement: Those systems with pertinent positive or pertinent negative responses have been documented in the HPI. ROS Other: All systems not noted in ROS Statement are negative. Past Medical History Past Medical History: Asthma, COPD, Fibromyalgia Additional Past Medical History / Comment(s): DDD, tmj History of Any Multi-Drug Resistant Organisms: None Reported Past Surgical History: Adenoidectomy, Cholecystectomy, Ear Surgery, Tonsillectomy Past Psychological History: Anxiety, Depression Smoking Status: Never smoker Past Alcohol Use History: None Reported Past Drug Use History: None Reported General Exam Limitations: no limitations General appearance: alert, in no apparent distress Head exam: Present: atraumatic, normocephalic Eye exam: Present: normal appearance, PERRL ENT exam: Present: normal oropharynx, TM's normal bilaterally (Left TM post- surgical.), normal external ear exam, other (Patient uncomfortable with opening her mouth.) Neck exam: Present: normal inspection. Absent: lymphadenopathy Respiratory exam: Present: normal lung sounds bilaterally. Absent: wheezes, rales, rhonchi Cardiovascular Exam: Present: regular rate, normal rhythm Neurological exam: Present: alert, oriented X3 Skin exam: Present: warm, dry Course Vital Signs 12/31/18 12/31/18 12/31/18 14:48 15:28 16:37 Temperature 98.2 F Pulse Rate 118 H 102 H 98 Respiratory 18 18 18 Rate Blood Pressure 133/93 139/92 O2 Sat by Pulse 96 96 95 Oximetry Medical Decision Making - Medical Decision Making Patient states she already sees a doctor for her TMJ disorder; patient instructed to follow-up with her doctor. Case discussed in detail with attending physician Dr. Roldan. Disposition Clinical Impression: TMJ (temporomandibular joint disorder) Disposition: HOME SELF-CARE Condition: Good Instructions (If sedation given, give patient instructions): Temporomandibular Disorder (ED) Additional Instructions: Follow-up with your PCP and the doctor that you see for treatment of your TMJ disorder in 1-2 days. Return to the emergency department if your symptoms worsen or other concerns. Is patient prescribed a controlled substance at d/c from ED?: No Referrals: Terence Mtoa MD [Primary Care Provider] - 1-2 days Time of Disposition: 16:42
[2018-12-31 16:38] VITALS: BP 139/92; PULSE 98
== END 2018-12-31 17:05 | disposition home or self-care (01) ==
LOC: EC 14:46
DX: M26.603 Bilateral temporomandibular joint disorder, unspecified (principal); J44.9 Chronic obstructive pulmonary disease, unspecified; Z98.890 Other specified postprocedural states; Z88.8 Allergy status to other drugs, medicaments and biological substances; Z91.041 Radiographic dye allergy status
CPT/HCPCS: 99283; 96372; J1885

== ENCOUNTER 2019-01-29 18:08 | Emergency (ER) | payer OTHER ==
[2019-01-29 18:17] VITALS: BP 154/106; PULSE 103; RESP 20; TEMP 98.6
[2019-01-29] MEDS ORDERED: HYDROcodone/APAP 5-325MG 1 EACH TAB PO STA (18:27)
--- NOTE | 2019-01-29 18:31 | ED ---
General Adult HPI - General Chief complaint: ENT Stated complaint: TMJ Time Seen by Provider: 01/29/19 18:20 Source: patient Mode of arrival: ambulatory Limitations: no limitations - History of Present Illness Initial comments: Dictation was produced using [employer] dictation software. please excuse any grammatical, word or spelling errors. Chief Complaint: 38-year-old female past medical history of chronic pain, COPD, asthma presents with bilateral jaw pain. History of Present Illness: 38-year-old female presents with bilateral jaw pain. She states she's had these issues for several months now. Patient states she went to her pain specialist and inquired about treating that. HEENT specialist that they've not treat anything involving the oral area. 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 Patient states that she has pain when she tries to open her mouth. She states that so bad that she is unable to use her breathing machine. Patient was seen in the emergency department for similar complaint. He does clench her teeth when she gets stressed and at night. The ROS documented in this emergency department record has been reviewed and confirmed by me. Those systems with pertinent positive or negative responses have been documented in the HPI. All other systems are other negative and/or noncontributory. PHYSICAL EXAM: General Impression: Alert and oriented x3, not in acute distress HEENT: Normocephalic atraumatic, extra-ocular movements intact, pupils equal and reactive to light bilaterally, mucous membranes moist, tenderness to palpation over the bilateral TMJs, limited mouth opening secondary to antalgia Cardiovascular: Heart regular rate and rhythm, S1&S2 audible, no murmurs, rubs o r gallops Chest: Lungs clear to auscultation bilaterally, no rhonchi, no wheeze, no rales Abdomen: Bowel sounds present, abdomen soft, non-tender, non-distended, no organomegaly Musculoskeletal: Pulses present and equal in all extremities, no peripheral edema Motor: no focal deficits noted Neurological: CN II-XII grossly intact, no focal motor or sensory deficits noted Skin: Intact with no visualized rashes Psych: Normal affect and mood ED course: 38-year-old female presents with TMJ arthralgia. As upon arrival shows findings within acceptable limits. Patient given 1 dose of [place] here. N o concern for TMJ dislocation given that patient's jaw is mobile. Patient given referral to oral surgeon. She is told to continue cold warm compresses intermittently. Patient told to eat soft food diet for acute episodes. Patient told to continue taking Motrin. She is given a muscle relaxer. She is told that she will need a splint/bite-block. She is told not to clench her teeth excessively. Patient given referral to oral surgeon. Patient understandable agreeable to plan. - Related Data Home Medications Medication Instructions Recorded Confirmed Albuterol Inhaler [Ventolin 2 puff INHALATION RT-Q4H PRN 05/15/14 01/29/19 Inhaler] Albuterol Nebulized [Ventolin 2.5 mg INHALATION RT-Q4H PRN 07/20/16 01/29/19 Nebulized] Ibuprofen [Motrin] 600 mg PO Q6HR 01/29/19 01/29/19 Medroxyprogesterone Acetate 150 mg IM DIRECTED 01/29/19 01/29/19 [Depo-Provera] PARoxetine HCL [Paxil] 40 mg PO DAILY 01/29/19 01/29/19 buPROPion HCL [Wellbutrin SR] 150 mg PO DAILY 01/29/19 01/29/19 Previous Rx's Medication Instructions Recorded Baclofen [Lioresal] 5 mg PO TID PRN #12 tablet 01/29/19 Allergies Allergy/AdvReac Type Severity Reaction Status Date / Time ascorbic acid Allergy Anaphylaxis Verified 01/29/19 18:14 [From Emergen-C Vitamin D-Calcium] calcium combination no.27 Allergy Anaphylaxis Verified 01/29/19 18:14 [From Emergen-C Vitamin D-Calcium] cholecalciferol (vitamin D3) Allergy Anaphylaxis Verified 01/29/19 18:14 [From Emergen-C Vitamin D-Calcium] diphenhydramine HCl Allergy Anaphylaxis Verified 01/29/19 18:14 [From Benadryl] Iodinated Contrast- Oral and Allergy Anaphylaxis Verified 01/29/19 18:14 IV Dye [Iodinated Contrast Media - IV Dye] methylprednisolone Allergy Rash/Hives Verified 01/29/19 18:14 [From Medrol] multivitamin with minerals Allergy Anaphylaxis Verified 01/29/19 18:14 [From Emergen-C Vitamin D-Calcium] Review of Systems ROS Statement: Those systems with pertinent positive or pertinent negative responses have been documented in the HPI. ROS Other: All systems not noted in ROS Statement are negative. Past Medical History Past Medical History: Asthma, COPD, Fibromyalgia Additional Past Medical History / Comment(s): DDD, tmj History of Any Multi-Drug Resistant Organisms: None Reported Past Surgical History: Adenoidectomy, Cholecystectomy, Ear Surgery, Tonsillectomy Past Psychological History: Anxiety, Depression Smoking Status: Never smoker Past Alcohol Use History: None Reported Past Drug Use History: None Reported General Exam Limitations: no limitations Course Vital Signs 01/29/19 18:14 Temperature 98.6 F Pulse Rate 103 H Respiratory 20 Rate Blood Pressure 154/106 O2 Sat by Pulse 96 Oximetry Disposition Clinical Impression: TMJ arthritis Disposition: HOME SELF-CARE Condition: Good Instructions (If sedation given, give patient instructions): Temporomandibular Disorder (ED) Prescriptions: Baclofen [Lioresal] 5 mg PO TID PRN #12 tablet PRN Reason: Pain Is patient prescribed a controlled substance at d/c from ED?: No Referrals: Juanito Gutierrez Jr, [Primary Care Provider] - 1-2 days Natalio Mccall DDS [STAFF PHYSICIAN] - 1-2 days Time of Disposition: 18:31
== END 2019-01-29 18:39 | disposition home or self-care (01) ==
LOC: EC 18:08
DX: M26.69 Other specified disorders of temporomandibular joint (principal); J44.9 Chronic obstructive pulmonary disease, unspecified; M79.7 Fibromyalgia; F41.9 Anxiety disorder, unspecified; F32.9 Major depressive disorder, single episode, unspecified; Z79.1 Long term (current) use of non-steroidal anti-inflammatories (NSAID); Z79.3 Long term (current) use of hormonal contraceptives; Z79.899 Other long term (current) drug therapy; Z88.8 Allergy status to other drugs, medicaments and biological substances; Z91.041 Radiographic dye allergy status
CPT/HCPCS: 99283

== ENCOUNTER → 2019-01-29 | Outpatient (CLI) | payer OTHER ==
[2019-01-29 11:48] VITALS: BP 139/99; PULSE 91; RESP 16
--- NOTE | 2019-01-29 12:13 | P.CONS ---
History of Present Illness - Reason for Consult Consult date: 01/29/19 - Chief Complaint Lower back pain - History of Present Illness This is a 38-year-old morbidly obese lady with a history of chronic lower back pain with radiation to the thighs bilaterally. The patient denies any numbness or tingling in the lower extremities or any weakness. She also denies any bowel or bladder dysfunction. The pain gets worse by any prolonged activities. It improves by using ibuprofen and resting. The patient had interventional pain procedures previously which helped her temporarily. She failed to respond to physical therapy previously. She still works full-time nurse aide. She denies using tobacco. Review of Systems Cardiovascular: Denies chest pain, Denies shortness of breath Respiratory: Denies cough Musculoskeletal: Reports as per HPI Neurological: Reports as per HPI Psychiatric: Reports depression Past Medical History Past Medical History: Asthma, COPD, Fibromyalgia Additional Past Medical History / Comment(s): DDD, tmj History of Any Multi-Drug Resistant Organisms: None Reported Past Surgical History: Adenoidectomy, Cholecystectomy, Ear Surgery, Tonsillectomy Past Psychological History: Anxiety, Depression Smoking Status: Never smoker Past Alcohol Use History: None Reported Past Drug Use History: None Reported Medications and Allergies Home Medications Medication Instructions Recorded Confirmed Type Albuterol Inhaler [Ventolin 2 puff INHALATION RT-Q4H PRN 05/15/14 01/29/19 History Inhaler] Albuterol Nebulized [Ventolin 2.5 mg INHALATION RT-Q4H PRN 07/20/16 01/29/19 History Nebulized] Ibuprofen [Motrin] 600 mg PO Q6HR 01/29/19 01/29/19 History Medroxyprogesterone Acetate 150 mg IM DIRECTED 01/29/19 01/29/19 History [Depo-Provera] PARoxetine HCL [Paxil] 40 mg PO DAILY 01/29/19 01/29/19 History buPROPion HCL [Wellbutrin SR] 150 mg PO DAILY 01/29/19 01/29/19 History Allergies Allergy/AdvReac Type Severity Reaction Status Date / Time ascorbic acid Allergy Anaphylaxis Verified 09/10/18 21:43 [From Emergen-C Vitamin D-Calcium] calcium combination no.27 Allergy Anaphylaxis Verified 09/10/18 21:43 [From Emergen-C Vitamin D-Calcium] cholecalciferol (vitamin D3) Allergy Anaphylaxis Verified 09/10/18 21:43 [From Emergen-C Vitamin D-Calcium] diphenhydramine HCl Allergy Anaphylaxis Verified 09/10/18 21:43 [From Benadryl] Iodinated Contrast- Oral and Allergy Anaphylaxis Verified 09/10/18 21:43 IV Dye [Iodinated Contrast Media - IV Dye] methylprednisolone Allergy Rash/Hives Verified 09/10/18 21:43 [From Medrol] multivitamin with minerals Allergy Anaphylaxis Verified 09/10/18 21:43 [From Emergen-C Vitamin D-Calcium] Physical Exam Vitals: Vital Signs Pulse Resp BP 01/29/19 11:33 91 16 139/99 Intake and Output 01/28/19 01/29/19 01/29/19 22:59 06:59 14:59 Other: Weight 104.326 kg - Constitutional General appearance: morbidly obese - EENT Eyes: PERRLA - Respiratory Respiratory: bilateral: CTA - Cardiovascular Rhythm: regular - Neurologic Neuro exam of the lower extremities showed normal and symmetrical muscle strength and deep tendon reflexes. She has significant tenderness in the lumbar paravertebral area. Straight leg raising test negative bilaterally Facet loading test positive bilaterally Neurologic: CNII-XII intact Results Results: Lumbar spine MRI in November 2018 showed broad-based central disc herniation at the L5-S1 level which has improved from previously and stable mild disc space narrowing at L2-L3 level there is no stenosis or compression of any nerve roots. Assessment and Plan Plan: This is a 38-year-old lady with the following diagnoses: Lumbar spondylosis without myelopathy Morbid obesity Asthma TMJ disease The patient may benefit from getting a diagnostic lumbar medial branch block and later on RFA on the medial branches of the diagnostic procedure was positive. The procedure was explained to the patient and her questions were answered.
== END ==
LOC: PNWHC3 11:13
PROVIDERS: ATTEND Anesthesiology
DX: M47.816 Spondylosis without myelopathy or radiculopathy, lumbar region (principal); E66.01 Morbid (severe) obesity due to excess calories; J45.909 Unspecified asthma, uncomplicated; M26.609 Unspecified temporomandibular joint disorder, unspecified side
CPT/HCPCS: 99211

== ENCOUNTER 2019-02-11 06:52 | Day surgery (SDC) | payer OTHER ==
[2019-02-05 11:10] VITALS: BMI 41.1
[~2019-02-11 06:52] MED LIST: SODIUM CHLORIDE 0.9% 500 ML 500 ML IV SCH
[2019-02-11 07:50] VITALS: RESP 16; TEMP 98.1
[2019-02-11] MEDS ORDERED: LACTATED RINGERS 1,000 ML IV ONE (07:58)
[2019-02-11] MEDS ORDERED: LIDOCAINE 1% 20 ML VIAL (10MG/ML) FOR IV START INTRADERMA ONE (07:59)
[2019-02-11] MEDS ORDERED: ONDANSETRON 4 MG/2 ML VIAL IVP ONE (08:10)
--- NOTE | 2019-02-11 09:09 | P.PCN ---
Date of Procedure: 02/11/19 Surgeon: Tremaine Aguilar Pathology: none sent Condition: stable Disposition: PACU Description of Procedure: PREOPERATIVE DIAGNOSIS : 1- Lumbar spondylosis with Facet Arthropathy wit hout myelopathy . 2- Lumber degenerative disc disease POSTOPERATIVE DIAGNOSIS: 1- Lumbar spondylosis with Facet Arthropathy without myelopathy . 2- Lumber degenerative disc disease PROCEDURE: Diagnostic bilateral L3 -4 , L4 -5 , and L5-S1 medial branch block under fluoroscopy ANESTHESIA: Local with 1% lidocaine; IV moderate conscious sedation with Versed 2 mg . EBL: Negligible COMPLICATION: None. PROCEDURE INDICATION: Chronic low back pain secondary to Facet arthropathy unresponsive to conservative treatment. PROCEDURE DESCRIPTION: the patient was seen and identified in the preop holding area , risks and benefits and possible complications of the procedure and a lternatives were discussed with the patient, and the patient agreed to proceed with the procedure and signed the consent. IV was started and vital signs monitored during the procedure and fluoroscopy was used to maximize the benefit and accuracy of the needle placement, sedation was given to decrease patient anxiety, patient was taken to the procedure room and placed in prone position vital signs monitored. The patient was brought into the procedure room and placed in prone position. Skin was prepped with Chloraprep and draped in a sterile manner. Lidocaine 1% was used to numb the skin up at the target points that were chosen as follows: at the L5-S1 level which corresponds to the dorsal ramus of L5 the target points were at the superior medial aspect of the sacral ala on each side of the spine on the AP view of fluoroscopy, and for the L3 and L4 medial branches the target points were the connection between the transverse process and the superior to go process of L4 and L5 respectively on the oblique views of fluoroscopy. I used 22-gauge 3-1/2 inch Quincke spinal needles for this procedure and after contacting bone at the target points mentioned above I injected 1 mL of a mixture of Kenalog 40 mg +5 MLS of Marcaine 0.5% PF . Patient tolerated procedure well. At the end of the procedure the needles removed and a bandage applied after the skin was cleaned the cleaning solution. patient was then taken to the recovery room in stable condition and monitored in the recovery room for 20-30 minutes and discharged home in stable condition after discharge criteria met .
[2019-02-11] MEDS ORDERED: LACTATED RINGERS 600 ML IV ONE (09:11)
[2019-02-11 09:28] VITALS: BP 122/89; PULSE 92
--- NOTE | 2019-02-11 10:02 | FL ---
EXAMINATION TYPE: FL guided pain mgmt statistic DATE OF EXAM: 02/11/2019 FLUOROSCOPY Fluoroscopy time of 18 seconds was used during lumbar facet block. 3 image/s document/s the procedur e.
== END 2019-02-11 09:42 | disposition home or self-care (01) ==
LOC: ORPAIN 06:52
PROVIDERS: ATTEND Anesthesiology
DX: M47.816 Spondylosis without myelopathy or radiculopathy, lumbar region (principal); M51.36 Other intervertebral disc degeneration, lumbar region; G89.29 Other chronic pain; M54.10 Radiculopathy, site unspecified; E66.01 Morbid (severe) obesity due to excess calories; J44.9 Chronic obstructive pulmonary disease, unspecified; M79.7 Fibromyalgia; F41.9 Anxiety disorder, unspecified; F32.9 Major depressive disorder, single episode, unspecified; M26.609 Unspecified temporomandibular joint disorder, unspecified side; Z79.899 Other long term (current) drug therapy; Z79.1 Long term (current) use of non-steroidal anti-inflammatories (NSAID); Z88.8 Allergy status to other drugs, medicaments and biological substances; Z91.041 Radiographic dye allergy status; Z68.41 Body mass index [BMI] 40.0-44.9, adult
CPT/HCPCS: 81025; 64493; 64494; 64495; J2250; J3301; J2405; J3010; 99152

== ENCOUNTER 2019-02-25 06:53 | Day surgery (SDC) | payer OTHER ==
[2019-02-23 12:10] VITALS: BMI 41.1
[~2019-02-25 06:53] MED LIST changes: +LACTATED RINGERS 1,000 ML IV SCH; -SODIUM CHLORIDE 0.9% 500 ML 500 ML IV SCH
[2019-02-25 07:25] VITALS: TEMP 97
[2019-02-25] MEDS ORDERED: ONDANSETRON 4 MG/2 ML VIAL IVP ONE (07:32)
--- NOTE | 2019-02-25 08:22 | P.PCN ---
Date of Procedure: 02/25/19 Surgeon: Tremaine Aguilar Pathology: none sent Condition: stable Disposition: PACU Description of Procedure: Description of Procedure: PREOPERATIVE DIAGNOSIS : 1- Lumbar spondylosis with Facet Arthropathy without myelopathy . 2- Lumber degenerative disc disease POSTOPERATIVE DIAGNOSIS: 1- Lumbar spondylosis with Facet Arthropathy without myelopathy . 2- Lumber degenerative disc disease PROCEDURE: Diagnostic bilateral L3 -4 , L4 -5 , and L5-S1 medial branch block under fluoroscopy ANESTHESIA: Local with 1% lidocaine; IV moderate conscious sedation with Versed 2 mg and fentanyl 50 mics . EBL: Negligible COMPLICATION: None. PROCEDURE INDICATION: Chronic low back pain secondary to Facet arthropathy unresponsive to conservative treatment. PROCEDURE DESCRIPTION: the patient was seen and identified in the preop holding area , risks and benefits and possible complications of the procedure and alternatives were discussed with the patient, and the patient agreed to proceed with the procedure and signed the consent. IV was started and vital signs monitored during the procedure and fluoroscopy was used to maximize the benefit and accuracy of the needle placement, sedation was given to decrease patient anxiety, patient was taken to the procedure room and placed in prone position vital signs monitored. The patient was brought into the procedure room and placed in prone position. Skin was prepped with Chloraprep and draped in a sterile manner. Lidocaine 1% was used to numb the skin up at the target points that were chosen as follows: at the L5-S1 level which corresponds to the dorsal ramus of L5 the target points were at the superior medial aspect of the sacral ala on each side of the spine on the AP view of fluoroscopy, and for the L3 and L4 medial branches the target points were the connection between the transverse process and the superior to go process of L4 and L5 respectively on the oblique views of fluoroscopy. I used 22-gauge 3-1/2 inch Quincke spinal needles for this procedure and after contacting bone at the target points mentioned above I injected 1 mL of a mixture of Kenalog 40 mg +5 MLS of Marcaine 0.5% PF . Patient tolerated procedure well. At the end of the procedure the needles removed and a bandage applied after the skin was cleaned the cleaning solution. patient was then taken to the recovery room in stable condition and monitored in the recovery room for 20-30 minutes and discharged home in stable condition after discharge criteria met .
[2019-02-25] MEDS ORDERED: IV FLUID CONTINUATION 1,000 ML IV ONE ×2 (08:28)
[2019-02-25 08:46] VITALS: BP 125/78; PULSE 82; RESP 18
--- NOTE | 2019-02-25 08:48 | FL ---
EXAMINATION TYPE: FL guided pain mgmt statistic DATE OF EXAM: 02/25/2019 CLINICAL HISTORY: Low back pain. TECHNIQUE: Fluoroscopy. COMPARISON: None. FINDINGS: Fluoroscopic guidance was provided during pain relief procedure performed by Dr. Aguilar. A total of 10 seconds of fluoroscopic time was utilized during the procedure and 3 spot images are a cquired. Images acquired shows needle localization at several levels in the lower lumbar spine and l umbosacral junction bilaterally. IMPRESSION: As Above.
== END 2019-02-25 09:05 | disposition home or self-care (01) ==
LOC: ORPAIN 06:53
PROVIDERS: ATTEND Anesthesiology
DX: M47.816 Spondylosis without myelopathy or radiculopathy, lumbar region (principal); M51.36 Other intervertebral disc degeneration, lumbar region; G89.29 Other chronic pain; E66.01 Morbid (severe) obesity due to excess calories; Z88.8 Allergy status to other drugs, medicaments and biological substances; Z91.041 Radiographic dye allergy status; Z68.41 Body mass index [BMI] 40.0-44.9, adult
CPT/HCPCS: 81025; 64493; 64494; 64495; J2250; J3301; J2405; J3010; 99152

== ENCOUNTER 2019-03-23 21:37 | Emergency (ER) | payer OTHER ==
[2019-03-23 21:53] VITALS: BP 139/92; PULSE 86; RESP 17; TEMP 98.7
[2019-03-23] MEDS ORDERED: KETOROLAC 60 MG/2 ML VIAL IM STA (22:39)
--- NOTE | 2019-03-23 23:24 | ED ---
General Adult HPI - General Chief complaint: Dental/Oral Stated complaint: Jaw to Ear Pain Time Seen by Provider: 03/23/19 21:59 Source: patient, RN notes reviewed, old records reviewed Mode of arrival: ambulatory Limitations: no limitations - History of Present Illness Initial comments: 39-year-old female patient past medical history of fibromyalgia, chronic pain, TMJ disorder presents today with exacerbation of right TMJ pain. Patient states that this feels similar to pain she has experienced in the past. Patient denies any recent falls or trauma, patient denies any other complaints. Patient does have meeting with pain management next week, however has not been able too control pain at home with Tylenol and Motrin. Patient denies any new or c oncerning symptoms. Patient has been chest pain shortness breath abdominal pain nausea vomiting or diarrhea. Systemic: Pt denies fatigue, myalgia, fever/chills, rash. Pt denies weakness, night sweats, weight loss. Neuro: Pt denies headache, visual disturbances, syncope or pre-syncope. HEENT: Pt denies ocular discharge or irritation, otalgia, rhinorrhea, pharyngitis or notable lymphadenopathy. Cardiopulmonary: Pt denies chest pain, SOB, heart palpitations, dyspnea on exertion. Abdominal/GI: Pt denies abdominal pain, n/v/d. : Pt denies dysuria, burning w/ urination, frequency/urgency. Denies new onset urinary or bowel incontinence. MSK: Pt denies myalgia, loss of strength or function in extremities. Neuro: Pt denies new onset weakness, paresthesias. - Related Data Home Medications Medication Instructions Recorded Confirmed Albuterol Inhaler [Ventolin 2 puff INHALATION RT-Q4H PRN 05/15/14 03/23/19 Inhaler] Albuterol Nebulized [Ventolin 2.5 mg INHALATION RT-Q4H PRN 07/20/16 03/23/19 Nebulized] Ibuprofen [Motrin Ib] 200 mg PO DAILY PRN 01/29/19 03/23/19 Medroxyprogesterone Acetate 150 mg IM Q30D 01/29/19 03/23/19 [Depo-Provera] PARoxetine HCL [Paxil] 40 mg PO DAILY 01/29/19 03/23/19 buPROPion HCL [Wellbutrin SR] 150 mg PO DAILY 01/29/19 03/23/19 Beclomethasone Dipropionate [Qvar 2 puff INHALATION BID 02/05/19 03/23/19 80 mcg] Acetaminophen [Tylenol] 1,000 mg PO Q6H 03/23/19 03/23/19 Previous Rx's Medication Instructions Recorded Ibuprofen [Motrin] 600 mg PO Q6HR PRN #40 day 03/23/19 Allergies Allergy/AdvReac Type Severity Reaction Status Date / Time ascorbic acid Allergy Anaphylaxis Verified 03/23/19 21:53 [From Emergen-C Vitamin D-Calcium] calcium combination no.27 Allergy Anaphylaxis Verified 03/23/19 21:53 [From Emergen-C Vitamin D-Calcium] cholecalciferol (vitamin D3) Allergy Anaphylaxis Verified 03/23/19 21:53 [From Emergen-C Vitamin D-Calcium] diphenhydramine HCl Allergy Dyspnea Verified 03/23/19 21:53 [From Benadryl] Iodinated Contrast- Oral and Allergy Anaphylaxis Verified 03/23/19 21:53 IV Dye [Iodinated Contrast Media - IV Dye] multivitamin with minerals Allergy Anaphylaxis Verified 03/23/19 21:53 [From Emergen-C Vitamin D-Calcium] methylprednisolone AdvReac shaky & Verified 03/23/19 21:53 [From Medrol] anxious Review of Systems ROS Statement: Those systems with pertinent positive or pertinent negative responses have been documented in the HPI. ROS Other: All systems not noted in ROS Statement are negative. Past Medical History Past Medical History: Asthma, COPD, Fibromyalgia Additional Past Medical History / Comment(s): DDD, tmj, History of Any Multi-Drug Resistant Organisms: None Reported Past Surgical History: Adenoidectomy, Cholecystectomy, Ear Surgery, Tonsillectomy Past Anesthesia/Blood Transfusion Reactions: Motion Sickness, Postoperative Nausea & Vomiting (PONV) Past Psychological History: Anxiety, Depression Smoking Status: Never smoker Past Alcohol Use History: None Reported Past Drug Use History: None Reported General Exam - General Exam Comments Initial Comments: Constitutional: NAD, AOX3, Pt has pleasant affect. HEENT: NC/AT, trachea midline, neck supple, no lymphadenopathy. Posterior pharynx non erythematous, without exudates. External ears appear normal, without discharge. Mucous membranes moist. Eyes PERRLA, EOM intact. There is no scleral icterus. No pallor noted. Cardiopulmonary: RRR, no murmurs, rubs or gallops, no JVD noted. Lungs CTAB in anterior and posterior [place]. No peripheral edema. Abdominal exam: Abdomen soft and non-distended. Abdomen non-tender to palpation in all 4 quadrants. Bowel sounds active in LLQ. No hepatosplenomegaly. No ecchymosis Neuro: CN II-XII grossly intact. No nuchal rigidity. MSK: Pain with range of motion of jaw. No erythema, no fluctuance, no streaking, no warmth. No posterior calf tenderness bilaterally, homans sign negative bilaterally. Posterior tibialis and radial pulse +2 bilaterally. Sensation intact in upper and lower extremities. Full active ROM in upper and lower extremities, 5/5 stregnth. Limitations: no limitations Course Vital Signs 03/23/19 21:50 Temperature 98.7 F Pulse Rate 86 Respiratory 17 Rate Blood Pressure 139/92 O2 Sat by Pulse 97 Oximetry Medical Decision Making - Medical Decision Making 39-year-old female patient past medical history of fibromyalgia, chronic pain, TMJ disorder presents today with exacerbation of right TMJ pain. Patient states that this feels similar to pain she has experienced in the past. Patient denies any recent falls or trauma, patient denies any other complaints. Patient does have meeting with pain management next week, however has not been able too control pain at home with Tylenol and Motrin. Patient denies any new or concerning symptoms. Patient has been chest pain shortness breath abdominal pain nausea vomiting or diarrhea. Patient vital signs stable, patient says she is not due to Depo-Provera shot. Physical exam displayed: Pain with range of motion of jaw. No erythema, no fluctuance, no streaking, no warmth. Patient will be discharged with ibuprofen. Patient to follow up with primary care provider and pain management. Patient returned here condition worsens. Case discussed with Dr. Johnson. Disposition Clinical Impression: TMJ pain dysfunction syndrome Disposition: HOME SELF-CARE Condition: Stable Instructions (If sedation given, give patient instructions): Temporomandibular Disorder (ED) Additional Instructions: Patient to adhere to previously discussed treatment plan and will take medication(s) as directed. Patient to follow up with PCP in 1-2 days. Patient to return to ED if symptoms do not improve. Return to ER if condition worsens. Follow-up with pain management as scheduled. Prescriptions: Ibuprofen [Motrin] 600 mg PO Q6HR PRN #40 day PRN Reason: Pain Is patient prescribed a controlled substance at d/c from ED?: No Referrals: Terence Mota MD [Primary Care Provider] - 1-2 days
== END 2019-03-23 23:59 | disposition home or self-care (01) ==
LOC: EC 21:37
DX: M26.621 Arthralgia of right temporomandibular joint (principal); J44.9 Chronic obstructive pulmonary disease, unspecified; M79.7 Fibromyalgia; F32.9 Major depressive disorder, single episode, unspecified; F41.9 Anxiety disorder, unspecified; Z79.51 Long term (current) use of inhaled steroids; Z79.899 Other long term (current) drug therapy; Z91.041 Radiographic dye allergy status; Z88.8 Allergy status to other drugs, medicaments and biological substances
CPT/HCPCS: 99283; 96372; J1885

== ENCOUNTER 2019-10-02 00:26 | Emergency (ER) | payer OTHER ==
--- NOTE | 2019-10-02 00:30 | ED ---
Chest Pain HPI - General Stated Complaint: chest pain Time Seen by Provider: 10/02/19 00:29 - History of Present Illness Initial Comments: Manisha is a 39-year-old female who presents to the emergency department today for evaluation of chest pain. Patient reports that earlier in the evening she began feeling pain in the right side of her upper chest. Pain was worse with palpation or movement. Pain was not associated with any diaphoresis, lighthead edness, shortness of breath and the pain was not exertional. Patient reports that she tried laying in a comfortable position but then noted that the pain seemed to radiate around to her back into her bilateral shoulders. Patient became anxious about this as she does have a family history of cardiac disease in her grandfather's and an uncle who in his 40s of a [place] therefore patient decided to come the ER for evaluation. She is a nonsmoker, nondiabetic, no known history of vascular disease or cardiac disease, no history DVT PE or clotting disorders. - Related Data Home Medications Medication Instructions Recorded Confirmed Albuterol Inhaler [Ventolin 2 puff INHALATION RT-Q4H PRN 05/15/14 03/23/19 Inhaler] Albuterol Nebulized [Ventolin 2.5 mg INHALATION RT-Q4H PRN 07/20/16 03/23/19 Nebulized] Ibuprofen [Motrin Ib] 200 mg PO DAILY PRN 01/29/19 03/23/19 Medroxyprogesterone Acetate 150 mg IM Q30D 01/29/19 03/23/19 [Depo-Provera] PARoxetine HCL [Paxil] 40 mg PO DAILY 01/29/19 03/23/19 buPROPion HCL [Wellbutrin SR] 150 mg PO DAILY 01/29/19 03/23/19 Beclomethasone Dipropionate [Qvar 2 puff INHALATION BID 02/05/19 03/23/19 80 mcg] Acetaminophen [Tylenol] 1,000 mg PO Q6H 03/23/19 03/23/19 Previous Rx's Medication Instructions Recorded Ibuprofen [Motrin] 600 mg PO Q6HR PRN #40 day 03/23/19 Allergies Allergy/AdvReac Type Severity Reaction Status Date / Time ascorbic acid Allergy Anaphylaxis Verified 03/23/19 21:53 [From Emergen-C Vitamin D-Calcium] calcium combination no.27 Allergy Anaphylaxis Verified 03/23/19 21:53 [From Emergen-C Vitamin D-Calcium] cholecalciferol (vitamin D3) Allergy Anaphylaxis Verified 03/23/19 21:53 [From Emergen-C Vitamin D-Calcium] diphenhydramine HCl Allergy Dyspnea Verified 03/23/19 21:53 [From Benadryl] Iodinated Contrast Media Allergy Anaphylaxis Verified 03/23/19 21:53 [Iodinated Contrast Media - IV Dye] multivitamin with minerals Allergy Anaphylaxis Verified 03/23/19 21:53 [From Emergen-C Vitamin D-Calcium] methylprednisolone AdvReac shaky & Verified 03/23/19 21:53 [From Medrol] anxious Review of Systems ROS Statement: Those systems with pertinent positive or pertinent negative responses have been documented in the HPI. ROS Other: All systems not noted in ROS Statement are negative. EKG Findings - EKG Comments: EKG Findings:: EKG was obtained due to complaint of chest pain, EKG was obtained at 12:35 AM, rate is 73, there is a P-wave before each QRS indicating sinus rhyt hm though there is some sinus arrhythmia noted. There is a normal axis, there are normal intervals, [place] 122, QRS 84, QTC is 440 there are no acute ST elevations or depressions there is no evidence of acute ischemia or infarction. Past Medical History Past Medical History: Asthma, COPD, Fibromyalgia Additional Past Medical History / Comment(s): DDD, tmj, History of Any Multi-Drug Resistant Organisms: None Reported Past Surgical History: Adenoidectomy, Cholecystectomy, Ear Surgery, Tonsillectomy Past Anesthesia/Blood Transfusion Reactions: Motion Sickness, Postoperative Nausea & Vomiting (PONV) Past Psychological History: Anxiety, Depression Smoking Status: Never smoker Past Alcohol Use History: None Reported Past Drug Use History: None Reported General Exam - General Exam Comments Initial Comments: Physical Exam GENERAL: Patient is well-developed and well-nourished. Patient is nontoxic and well- hydrated and is in no distress. HENT: Normocephalic, Atraumatic. EYES: PERRL, EOMI PULMONARY: Unlabored respirations. No audible rales rhonchi or wheezing was noted. CARDIOVASCULAR: There is a regular rate and rhythm without any murmurs gallops or rubs. ABDOMEN: Soft and nontender with normal bowel sounds. SKIN: Skin is clear with no lesions or rashes and otherwise unremarkable. : Deferred NEUROLOGIC: Patient is alert and oriented x3. Moving all extremities spontaneously MUSCULOSKELETAL: Normal extremities with adequate strength and full range of motion. No lower extremity swelling or edema. No calf tenderness. PSYCHIATRIC: Normal psychiatric evaluation. Course Vital Signs 10/02/19 10/02/19 00:28 01:32 Temperature 99.2 F Pulse Rate 87 76 Respiratory 18 18 Rate Blood Pressure 135/86 107/81 O2 Sat by Pulse 96 97 Oximetry Chest [facility] Patient was seen and evaluated, history is obtained from patient and signed history and physical exam concerning for muscular skeletal chest pain however the patient's family history, she is a young female labs were obtained including troponin and d-dimer. Labs are within normal limits d-dimer shot elevated troponin is not elevated. Patient resting comfortably and is comfortable with the plan for discharge home. Upon discussing the results patient admits that she does frequent suffer from costochondritis and initially this is very similar to previous events. Patient does first concern that she's just anxious due to recent illnesses in the family. Disposition Clinical Impression: Atypical chest pain Disposition: HOME SELF-CARE Condition: Stable Instructions (If sedation given, give patient instructions): Costochondritis (ED) Is patient prescribed a controlled substance at d/c from ED?: No Referrals: Terence Mota MD [STAFF PHYSICIAN] - 1-2 days
[2019-10-02 00:33] VITALS: RESP 18; TEMP 99.2
[2019-10-02 01:02] LABS: Basophils # (A) 0.1 k/uL (0-0.2); Basophils % (A) 2 %; Eosinophils # (A) 0.3 k/uL (0-0.7); Eosinophils % (A) 4 %; HGB 12.8 gm/dL (11.4-16.0); Lymphocytes # (A) 2.3 k/uL (1.0-4.8); Lymphocytes % (A) 33 %; MCHC 33.8 g/dL (31.0-37.0); MCV 91.8 fL (80.0-100.0); Mean Platelet Volume 9.2; Monocytes # (A) 0.3 k/uL (0-1.0); Monocytes % (A) 4 %; Neutrophils # (A) 3.9 k/uL (1.3-7.7); Neutrophils % (A) 56 %; Platelet Count 180 k/uL (150-450); RBC 4.14 m/uL (3.80-5.40); RDW 12.9 % (11.5-15.5)
--- NOTE | 2019-10-02 01:07 | XR ---
EXAMINATION TYPE: XR chest 2V DATE OF EXAM: 10/02/2019 COMPARISON: 02/19/2018 HISTORY: Chest pain TECHNIQUE: Frontal and lateral views of the chest are obtained. FINDINGS: Heart and mediastinum are normal. Lungs are clear. Diaphragm is normal. Bony thorax appear s normal. IMPRESSION: Normal chest. No change.
[2019-10-02 01:08] LABS: ALT 20 U/L (9-52); AST 21 U/L (14-36); African American GFR (CKD) >90 (>60 ml/min/1.73 sqM); Albumin 3.6 g/dL (3.5-5.0); Alkaline Phosphatase 99 U/L (38-126); Anion Gap 5 mmol/L; Blood Urea Nitrogen 11 mg/dL (7-17); Calcium 8.6 mg/dL (8.4-10.2); Carbon Dioxide 23 mmol/L (22-30); Chloride 111 mmol/L (98-107); Glucose 107 mg/dL (74-99); Magnesium 1.9 mg/dL (1.6-2.3); Sodium 139 mmol/L (137-145); Total Bilirubin 0.5 mg/dL (0.2-1.3); Total Protein 6.2 g/dL (6.3-8.2)
[2019-10-02 01:14] LABS: Potassium 4.1 mmol/L (3.5-5.1)
[2019-10-02 01:36] VITALS: BP 107/81; PULSE 76
== END 2019-10-02 02:00 | disposition home or self-care (01) ==
LOC: EC 00:26
DX: R07.89 Other chest pain (principal); R79.1 Abnormal coagulation profile; F41.9 Anxiety disorder, unspecified; J44.9 Chronic obstructive pulmonary disease, unspecified; M79.7 Fibromyalgia; F32.9 Major depressive disorder, single episode, unspecified; Z79.51 Long term (current) use of inhaled steroids; Z79.899 Other long term (current) drug therapy; Z88.8 Allergy status to other drugs, medicaments and biological substances; Z91.041 Radiographic dye allergy status; Z82.49 Family history of ischemic heart disease and other diseases of the circulatory system
CPT/HCPCS: 36415; 71046; 80053; 83735; 84484; 85025; 85379; 93005; 99285

== ENCOUNTER 2020-03-10 17:12 | Emergency (ER) | payer OTHER ==
[2020-03-10 17:26] VITALS: RESP 18
[2020-03-10] MEDS ORDERED: ORPHENADRINE 30 MG/ML 2 ML VIAL IM STA (18:19)
[2020-03-10] MEDS ORDERED: KETOROLAC 30 MG/ML 1 ML VIAL IM STA (18:19)
[2020-03-10] MEDS ORDERED: ACET/COD 300 MG/30 MG STARTER PACK 6 TAB BTL PO STA (18:20)
--- NOTE | 2020-03-10 18:21 | ED ---
Back Pain HPI - General Chief Complaint: Back Pain/Injury Stated Complaint: back pain Time Seen by Provider: 03/10/20 17:51 Source: patient Limitations: no limitations - History of Present Illness Initial Comments: 39-year-old female patient presents to the emergency department today for evaluation of back pain. Patient states that earlier today she was lifting a toe filled with groceries when she felt something pull in her mid back. Patient states the pain radiated from the mid back down to her legs. States the pain traveled down the back of her legs to the knee level. Denies numbness or tingling to the lower extremity. Denies a loss of bowel or bladder control or saddle anesthesia. Patient states she has had muscle spasm in the past and feels similar. States she did try taking Tylenol, naproxen, and ibuprofen without relief. States she is applied Biofreeze and ice to the back without relief. She denies any urinary symptoms, fever, or chills. Pain worsens with movement, especially position changes. Patient denies any recent rash, cough, shortness of breath, chest pain, abdominal pain, nausea, vomiting, diarrhea, constipation, dizziness, weakness, hematuria, dysuria, urinary urgency, urinary frequency, headache, visual changes, or any other complaints. - Related Data Home Medications Medication Instructions Recorded Confirmed Albuterol Inhaler (Bulk) [Ventolin 2 puff INHALATION RT-Q4H PRN 05/15/14 03/23/19 Inhaler] Albuterol Nebulized [Ventolin 2.5 mg INHALATION RT-Q4H PRN 07/20/16 03/23/19 Nebulized] Ibuprofen [Motrin Ib] 200 mg PO DAILY PRN 01/29/19 03/23/19 Medroxyprogesterone Acetate 150 mg IM Q30D 01/29/19 03/23/19 [Depo-Provera] PARoxetine HCL [Paxil] 40 mg PO DAILY 01/29/19 03/23/19 buPROPion HCL [Wellbutrin SR] 150 mg PO DAILY 01/29/19 03/23/19 Beclomethasone Dipropionate [Qvar 2 puff INHALATION BID 02/05/19 03/23/19 80 mcg] Acetaminophen [Tylenol] 1,000 mg PO Q6H 03/23/19 03/23/19 Previous Rx's Medication Instructions Recorded Ibuprofen [Motrin] 600 mg PO Q6HR PRN #40 day 03/23/19 Cyclobenzaprine [Flexeril] 10 mg PO TID #15 tab 03/10/20 Allergies Allergy/AdvReac Type Severity Reaction Status Date / Time ascorbic acid Allergy Anaphylaxis Verified 03/10/20 18:39 [From Emergen-C Vitamin D-Calcium] calcium combination no.27 Allergy Anaphylaxis Verified 03/10/20 18:39 [From Emergen-C Vitamin D-Calcium] cholecalciferol (vitamin D3) Allergy Anaphylaxis Verified 03/10/20 18:39 [From Emergen-C Vitamin D-Calcium] diphenhydramine HCl Allergy Dyspnea Verified 03/10/20 18:39 [From Benadryl] Iodinated Contrast Media Allergy Anaphylaxis Verified 03/10/20 18:39 [Iodinated Contrast Media - IV Dye] multivitamin with minerals Allergy Anaphylaxis Verified 03/10/20 18:39 [From Emergen-C Vitamin D-Calcium] methylprednisolone AdvReac shaky & Verified 03/10/20 18:39 [From Medrol] anxious Review of Systems ROS Statement: Those systems with pertinent positive or pertinent negative responses have been documented in the HPI. ROS Other: All systems not noted in ROS Statement are negative. Past Medical History Past Medical History: Asthma, COPD, Fibromyalgia Additional Past Medical History / Comment(s): DDD, tmj, History of Any Multi-Drug Resistant Organisms: None Reported Past Surgical History: Adenoidectomy, Cholecystectomy, Ear Surgery, Tonsillectomy Past Anesthesia/Blood Transfusion Reactions: Motion Sickness, Postoperative Nausea & Vomiting (PONV) Past Psychological History: Anxiety, Depression Smoking Status: Never smoker Past Alcohol Use History: None Reported Past Drug Use History: None Reported General Exam Limitations: no limitations General appearance: alert, in no apparent distress, other (This is a well- developed, well-nourished adult female patient in no acute distress. Vital signs upon presentation are temperature 98.9F, pulse 94, respirations 18, blood pressure 146/78, pulse ox 98% on room air.) Eye exam: Present: normal appearance, PERRL, EOMI. Absent: scleral icterus, co njunctival injection, periorbital swelling ENT exam: Present: normal exam, normal oropharynx, mucous membranes moist Respiratory exam: Present: normal lung sounds bilaterally. Absent: respiratory distress, wheezes, rales, rhonchi, stridor Cardiovascular Exam: Present: regular rate, normal rhythm, normal heart sounds. Absent: systolic murmur, diastolic murmur, rubs, gallop, clicks GI/Abdominal exam: Present: soft, normal bowel sounds. Absent: distended, tenderness, guarding, rebound, rigid Extremities exam: Present: normal inspection, full ROM, normal capillary refill, other (Skin to the lower extremities is pink, warm, dry. Cap refills less than 3 seconds. Pedal and posttibial pulses are 2+ and equal bilaterally.). Absent: tenderness, pedal edema, joint swelling, calf tenderness Back exam: Present: normal inspection, tenderness (There is tenderness over the bilateral latissimus muscles). Absent: vertebral tenderness Neurological exam: Present: alert, oriented X3, CN II-XII intact Psychiatric exam: Present: normal affect, normal mood Skin exam: Present: warm, dry, intact, normal color. Absent: rash Course Vital Signs 03/10/20 03/10/20 17:17 18:42 Temperature 98.9 F 98.0 F Pulse Rate 94 82 Respiratory 18 18 Rate Blood Pressure 146/78 136/82 O2 Sat by Pulse 98 98 Oximetry Medical Decision Making - Medical Decision Making 39-year-old female patient presented to the emergency department today for evaluation of increased back pain after lifting a heavy tub earlier today. Physical examination did reveal tenderness over the bilateral latissimus muscles. Patient was neurologically intact. Strength was 5/5 in the legs. She has no concerning symptoms for cauda equina. We'll treat for muscle spasm with anti-inflammatories and muscle relaxers. She is instructed to follow-up with her primary care physician for recheck in 1-2 days. Return parameters were discussed in detail. She verbalizes understanding and agrees with this plan. Disposition Clinical Impression: Muscle spasm of back Disposition: HOME SELF-CARE Condition: Good Instructions (If sedation given, give patient instructions): Muscle Spasm (ED), Back Pain (ED) Additional Instructions: Apply ice the first 24 hours and switch to warm moist heat. Take medications as directed. Perform gentle range of motion exercises. Follow-up with your primary care physician for recheck in 1-2 days. Return to the emergency department immediately for any new, worsening, or concerning symptoms. Prescriptions: Cyclobenzaprine [Flexeril] 10 mg PO TID #15 tab Is patient prescribed a controlled substance at d/c from ED?: No Referrals: Juanito Gutierrez Jr, [Primary Care Provider] - 1-2 days Time of Disposition: 18:21
[2020-03-10 18:46] VITALS: BP 136/82; PULSE 82; TEMP 98
== END 2020-03-10 18:43 | disposition home or self-care (01) ==
LOC: EC 17:12
DX: M62.830 Muscle spasm of back (principal); J44.9 Chronic obstructive pulmonary disease, unspecified; F41.9 Anxiety disorder, unspecified; F32.9 Major depressive disorder, single episode, unspecified; Z79.899 Other long term (current) drug therapy; Z88.8 Allergy status to other drugs, medicaments and biological substances; Z91.041 Radiographic dye allergy status
CPT/HCPCS: 99283; 96372 ×2; J2360; J1885

== ENCOUNTER 2020-07-07 02:15 | Emergency (ER) | payer OTHER ==
[2020-07-07 02:21] VITALS: BP 147/80; PULSE 99; RESP 16; TEMP 98.3
[2020-07-07] MEDS ORDERED: ACET/COD 300 MG/30 MG STARTER PACK 6 TAB BTL PO STA (03:01)
[2020-07-07] MEDS ORDERED: predniSONE 20 MG TAB PO STA (03:01)
--- NOTE | 2020-07-07 03:05 | ED ---
ENT HPI - General Chief complaint: Dental/Oral Stated complaint: Jaw Pain Time Seen by Provider: 07/07/20 02:48 Source: patient Mode of arrival: ambulatory Limitations: no limitations - History of Present Illness Initial comments: 's patient is a 40-year-old woman who presents to be evaluated for left TMJ pain. The patient states that had come on in the morning and been getting worse, now going on almost 24 hours. She does have history of previous TMJ. Patient denies any acute trauma to the mandible her head. No fever or chills. No eye symptoms. No neck pain or swelling. No dyspnea, trouble with speech or swallowing. Onset/Timin -: days(s) Severity: severe Quality: aching Consistency: constant Improves with: none Worsens with: eating, other - Related Data Home Medications Medication Instructions Recorded Confirmed Albuterol Inhaler (Mhu) [Ventolin 2 puff INHALATION RT-Q4H PRN 05/15/14 03/23/19 Inhaler] Albuterol Nebulized [Ventolin 2.5 mg INHALATION RT-Q4H PRN 07/20/16 03/23/19 Nebulized] Ibuprofen [Motrin Ib] 200 mg PO DAILY PRN 01/29/19 03/23/19 Medroxyprogesterone Acetate 150 mg IM Q30D 01/29/19 03/23/19 [Depo-Provera] PARoxetine HCL [Paxil] 40 mg PO DAILY 01/29/19 03/23/19 buPROPion HCL [Wellbutrin SR] 150 mg PO DAILY 01/29/19 03/23/19 Beclomethasone Dipropionate [Qvar 2 puff INHALATION BID 02/05/19 03/23/19 80 mcg] Acetaminophen [Tylenol] 1,000 mg PO Q6H 03/23/19 03/23/19 Previous Rx's Medication Instructions Recorded Ibuprofen [Motrin] 600 mg PO Q6HR PRN #40 day 03/23/19 Cyclobenzaprine [Flexeril] 10 mg PO TID #15 tab 03/10/20 Penicillin V Potassium [Pen Vee K] 500 mg PO QID #28 tablet 07/07/20 predniSONE 60 mg PO DAILY #30 tab 07/07/20 Allergies Allergy/AdvReac Type Severity Reaction Status Date / Time ascorbic acid Allergy Anaphylaxis Verified 07/07/20 02:20 [From Emergen-C Vitamin D-Calcium] calcium combination no.27 Allergy Anaphylaxis Verified 07/07/20 02:20 [From Emergen-C Vitamin D-Calcium] cholecalciferol (vitamin D3) Allergy Anaphylaxis Verified 07/07/20 02:20 [From Emergen-C Vitamin D-Calcium] diphenhydramine HCl Allergy Dyspnea Verified 07/07/20 02:20 [From Benadryl] Iodinated Contrast Media Allergy Anaphylaxis Verified 07/07/20 02:20 [Iodinated Contrast Media - IV Dye] multivitamin with minerals Allergy Anaphylaxis Verified 07/07/20 02:20 [From Emergen-C Vitamin D-Calcium] methylprednisolone AdvReac shaky & Verified 07/07/20 02:20 [From Medrol] anxious Review of Systems ROS Statement: Those systems with pertinent positive or pertinent negative responses have been documented in the HPI. ROS Other: All systems not noted in ROS Statement are negative. Constitutional: Denies: fever, chills ENT: Denies: ear pain, throat pain, dental pain, hearing loss Respiratory: Denies: cough, dyspnea Cardiovascular: Denies: chest pain Skin: Denies: rash Neurological: Denies: headache Past Medical History Past Medical History: Asthma, COPD, Fibromyalgia Additional Past Medical History / Comment(s): DDD, tmj, History of Any Multi-Drug Resistant Organisms: None Reported Past Surgical History: Adenoidectomy, Cholecystectomy, Ear Surgery, Tonsillectomy Past Anesthesia/Blood Transfusion Reactions: Motion Sickness, Postoperative Nausea & Vomiting (PONV) Past Psychological History: Anxiety, Depression Smoking Status: Never smoker Past Alcohol Use History: None Reported Past Drug Use History: None Reported General Exam Limitations: no limitations General appearance: alert, in no apparent distress Head exam: Present: atraumatic, normocephalic Eye exam: Present: normal appearance, PERRL, EOMI. Absent: scleral icterus, conjunctival injection ENT exam: Present: TM's normal bilaterally, normal external ear exam, other (The patient does have carious teeth, left mandibular. No palpable abscess. There is tenderness when the TMJ is palpated.) Neck exam: Present: normal inspection, full ROM. Absent: tenderness, meningismus Respiratory exam: Present: normal lung sounds bilaterally. Absent: respiratory distress, wheezes, rales, rhonchi, stridor Cardiovascular Exam: Present: regular rate, normal rhythm, normal heart sounds Skin exam: Present: warm, dry, intact, normal color. Absent: rash Course Vital Signs 07/07/20 02:17 Temperature 98.3 F Pulse Rate 99 Respiratory 16 Rate Blood Pressure 147/80 O2 Sat by Pulse 95 Oximetry Disposition Clinical Impression: TMJ arthralgia Disposition: HOME SELF-CARE Condition: Fair Instructions (If sedation given, give patient instructions): Temporomandibular Disorder (ED) Prescriptions: Penicillin V Potassium [Pen Vee K] 500 mg PO QID #28 tablet predniSONE 60 mg PO DAILY #30 tab Is patient prescribed a controlled substance at d/c from ED?: No Referrals: Juanito Gutierrez Jr, [Primary Care Provider] - 1-2 days
== END 2020-07-07 03:14 | disposition home or self-care (01) ==
LOC: EC 02:15
DX: M26.622 Arthralgia of left temporomandibular joint (principal); K02.9 Dental caries, unspecified; J44.9 Chronic obstructive pulmonary disease, unspecified; F41.9 Anxiety disorder, unspecified; F32.9 Major depressive disorder, single episode, unspecified; Z79.899 Other long term (current) drug therapy; Z88.8 Allergy status to other drugs, medicaments and biological substances; Z91.041 Radiographic dye allergy status
CPT/HCPCS: 99283

== ENCOUNTER 2020-09-03 03:35 | Emergency (ER) | payer OTHER ==
[2020-09-03 03:39] VITALS: BP 126/97; PULSE 113; RESP 16; TEMP 98.5
[2020-09-03] MEDS ORDERED: AMOXIC-POT CLAV 875MG STARTER PACK 2 TAB BTL PO STA (03:59)
[2020-09-03] MEDS ORDERED: ACET/COD 300 MG/30 MG STARTER PACK 6 TAB BTL PO STA (03:59)
--- NOTE | 2020-09-03 04:04 | ED ---
ENT HPI - General Chief complaint: ENT Stated complaint: ENT Time Seen by Provider: 09/03/20 03:44 Source: patient Mode of arrival: ambulatory Limitations: no limitations - History of Present Illness Initial comments: This patient is a 40-year-old woman who states she has history of TMJ pain, and presents with right mandibular pain. She states that it was coming on little bit 2 days ago and then has worsened. She has tried using Tylenol, ibuprofen, cold and warm compresses which only given minimal relief. Patient states that it does feel a little different than her usual TMJ pain. She notes of being more anterior. No fever or chills. No difficulty with speech or swallowing. MD complaint: tooth pain Onset/Timin -: days(s) Severity: moderate Quality: aching Consistency: constant Improves with: none Worsens with: none Context- Dental: other (TMJ) Associated Symptoms: toothache - Related Data Home Medications Medication Instructions Recorded Confirmed Albuterol Inhaler (Mhu) [Ventolin 2 puff INHALATION RT-Q4H PRN 05/15/14 03/23/19 Inhaler] Albuterol Nebulized [Ventolin 2.5 mg INHALATION RT-Q4H PRN 07/20/16 03/23/19 Nebulized] Ibuprofen [Motrin Ib] 200 mg PO DAILY PRN 01/29/19 03/23/19 Medroxyprogesterone Acetate 150 mg IM Q30D 01/29/19 03/23/19 [Depo-Provera] PARoxetine HCL [Paxil] 40 mg PO DAILY 01/29/19 03/23/19 buPROPion HCL [Wellbutrin SR] 150 mg PO DAILY 01/29/19 03/23/19 Beclomethasone Dipropionate [Qvar 2 puff INHALATION BID 02/05/19 03/23/19 80 mcg] Acetaminophen [Tylenol] 1,000 mg PO Q6H 03/23/19 03/23/19 Previous Rx's Medication Instructions Recorded Ibuprofen [Motrin] 600 mg PO Q6HR PRN #40 day 03/23/19 Cyclobenzaprine [Flexeril] 10 mg PO TID #15 tab 03/10/20 Penicillin V Potassium [Pen Vee K] 500 mg PO QID #28 tablet 07/07/20 predniSONE 60 mg PO DAILY #30 tab 07/07/20 Amoxicillin/Potassium Clav 1 tab PO Q12HR 1 Days #14 tab 09/03/20 [Augmentin 875-125 Tablet] Allergies Allergy/AdvReac Type Severity Reaction Status Date / Time ascorbic acid Allergy Anaphylaxis Verified 09/03/20 03:39 [From Emergen-C Vitamin D-Calcium] calcium combination no.27 Allergy Anaphylaxis Verified 09/03/20 03:39 [From Emergen-C Vitamin D-Calcium] cholecalciferol (vitamin D3) Allergy Anaphylaxis Verified 09/03/20 03:39 [From Emergen-C Vitamin D-Calcium] diphenhydramine HCl Allergy Dyspnea Verified 09/03/20 03:39 [From Benadryl] Iodinated Contrast Media Allergy Anaphylaxis Verified 09/03/20 03:39 [Iodinated Contrast Media - IV Dye] multivitamin with minerals Allergy Anaphylaxis Verified 09/03/20 03:39 [From Emergen-C Vitamin D-Calcium] methylprednisolone AdvReac shaky & Verified 09/03/20 03:39 [From Medrol] anxious Review of Systems ROS Statement: Those systems with pertinent positive or pertinent negative responses have been documented in the HPI. ROS Other: All systems not noted in ROS Statement are negative. Constitutional: Denies: fever, chills Eyes: Denies: eye pain, vision change ENT: Reports: as per HPI, dental pain. Denies: ear pain, hearing loss Respiratory: Denies: cough, dyspnea Cardiovascular: Denies: palpitations Neurological: Denies: headache, weakness Past Medical History Past Medical History: Asthma, COPD, Fibromyalgia Additional Past Medical History / Comment(s): DDD, tmj, History of Any Multi-Drug Resistant Organisms: None Reported Past Surgical History: Adenoidectomy, Cholecystectomy, Ear Surgery, Tonsillectomy Past Anesthesia/Blood Transfusion Reactions: Motion Sickness, Postoperative Nausea & Vomiting (PONV) Past Psychological History: Anxiety, Depression Smoking Status: Never smoker Past Alcohol Use History: None Reported Past Drug Use History: None Reported General Exam Limitations: no limitations General appearance: alert, in no apparent distress Head exam: Present: atraumatic, normocephalic Eye exam: Present: normal appearance, EOMI. Absent: scleral icterus, conjunctival injection ENT exam: Present: mucous membranes moist, other (Patient has moderately extensive dental caries. There does appear to be some gingival erythema and swelling. No palpable fluctuance. No neck or sublingual fullness or tenderness.) Neck exam: Present: normal inspection, full ROM. Absent: tenderness, meningismus, lymphadenopathy Respiratory exam: Present: normal lung sounds bilaterally. Absent: respiratory distress, wheezes, rales, rhonchi, stridor Cardiovascular Exam: Present: regular rate, normal rhythm, normal heart sounds. Absent: systolic murmur, diastolic murmur, rubs, gallop Neurological exam: Present: alert Skin exam: Present: warm, dry, intact, normal color. Absent: rash Course Vital Signs 09/03/20 03:36 Temperature 98.5 F Pulse Rate 113 H Respiratory 16 Rate Blood Pressure 126/97 O2 Sat by Pulse 96 Oximetry Disposition Clinical Impression: Caries, Dental infection Disposition: HOME SELF-CARE Condition: Good Instructions (If sedation given, give patient instructions): Toothache (ED) Prescriptions: Amoxicillin/Potassium Clav [Augmentin 875-125 Tablet] 1 tab PO Q12HR 1 Days #14 tab Is patient prescribed a controlled substance at d/c from ED?: No Referrals: Juanito Gutierrez Jr, [Primary Care Provider] - 1-2 days
== END 2020-09-03 04:18 | disposition home or self-care (01) ==
LOC: EC 03:35
DX: K04.7 Periapical abscess without sinus (principal); K02.9 Dental caries, unspecified; J44.9 Chronic obstructive pulmonary disease, unspecified; F41.9 Anxiety disorder, unspecified; M79.7 Fibromyalgia; F32.9 Major depressive disorder, single episode, unspecified; Z79.51 Long term (current) use of inhaled steroids; Z79.899 Other long term (current) drug therapy; Z79.1 Long term (current) use of non-steroidal anti-inflammatories (NSAID); Z88.8 Allergy status to other drugs, medicaments and biological substances; Z91.041 Radiographic dye allergy status
CPT/HCPCS: 99283

== ENCOUNTER 2021-04-05 04:36 | Emergency (ER) | payer OTHER ==
[2021-04-05 04:48] VITALS: TEMP 97.9
[2021-04-05] MEDS ORDERED: ALBUTEROL NEBULIZED 2.5 MG/3 ML INHALATION STA (04:53)
[2021-04-05] MEDS ORDERED: IPRATROPIUM 0.5 MG/2.5 ML NEBU INHALATION STA (04:53)
[2021-04-05] MEDS ORDERED: SODIUM CHLORIDE 0.9% 500 ML 500 ML IV STA (04:53)
[2021-04-05] MEDS ORDERED: SODIUM CHLORIDE 0.9% 1,000 ML IV STA ×2 (04:53)
--- NOTE | 2021-04-05 04:57 | ED ---
SOB HPI - General Chief Complaint: Shortness of Breath Stated Complaint: SOB Time Seen by Provider: 04/05/21 04:53 Source: EMS Mode of arrival: EMS Limitations: no limitations - Related Data Home Medications Medication Instructions Recorded Confirmed Medroxyprogesterone Acetate 150 mg IM Q90D 01/29/19 04/05/21 [Depo-Provera] Albuterol Sulfate [Proair Hfa] 1 - 2 puff INHALATION RT-Q6H PRN 04/05/21 04/05/21 Allergies Allergy/AdvReac Type Severity Reaction Status Date / Time ascorbic acid Allergy Anaphylaxis Verified 04/05/21 06:29 [From Emergen-C Vitamin D-Calcium] calcium combination no.27 Allergy Anaphylaxis Verified 04/05/21 06:29 [From Emergen-C Vitamin D-Calcium] cholecalciferol (vitamin D3) Allergy Anaphylaxis Verified 04/05/21 06:29 [From Emergen-C Vitamin D-Calcium] diphenhydramine HCl Allergy Dyspnea Verified 04/05/21 06:29 [From Benadryl] Iodinated Contrast Media Allergy Anaphylaxis Verified 04/05/21 06:29 [Iodinated Contrast Media - IV Dye] multivitamin with minerals Allergy Anaphylaxis Verified 04/05/21 06:29 [From Emergen-C Vitamin D-Calcium] methylprednisolone AdvReac shaky & Verified 04/05/21 06:29 [From Medrol] anxious Review of Systems ROS Statement: Those systems with pertinent positive or pertinent negative responses have been documented in the HPI. ROS Other: All systems not noted in ROS Statement are negative. Past Medical History Past Medical History: Asthma, COPD, Fibromyalgia Additional Past Medical History / Comment(s): DDD, tmj, History of Any Multi-Drug Resistant Organisms: None Reported Past Surgical History: Adenoidectomy, Cholecystectomy, Ear Surgery, Tonsillectomy Past Anesthesia/Blood Transfusion Reactions: Motion Sickness, Postoperative Nausea & Vomiting (PONV) Past Psychological History: Anxiety, Depression Smoking Status: Never smoker Past Alcohol Use History: None Reported Past Drug Use History: Marijuana General Exam Limitations: no limitations Course Vital Signs 04/05/21 04/05/21 04/05/21 04:37 04:49 05:20 Temperature 97.9 F Pulse Rate 102 H 90 Respiratory 20 22 Rate Blood Pressure 139/119 O2 Sat by Pulse 99 Oximetry 04/05/21 05:49 Temperature Pulse Rate 104 H Respiratory Rate Blood Pressure O2 Sat by Pulse Oximetry Medical Decision Making - Lab Data Result diagrams: 04/05/21 05:04 04/05/21 05:04 Lab Results 04/05/21 04/05/21 04/05/21 Range/Units 05:04 05:04 05:04 WBC 7.4 (3.8-10.6) k/uL RBC 4.25 (3.80-5.40) m/uL Hgb 13.5 (11.4-16.0) gm/dL Hct 38.8 (34.0-46.0) % MCV 91.2 (80.0-100.0) fL MCH 31.8 (25.0-35.0) pg MCHC 34.9 (31.0-37.0) g/dL RDW 14.2 (11.5-15.5) % Plt Count 207 (150-450) k/uL MPV 8.1 Neutrophils % 55 % Lymphocytes % 31 % Monocytes % 4 % Eosinophils % 8 % Basophils % 0 % Neutrophils # 4.1 (1.3-7.7) k/uL Lymphocytes # 2.3 (1.0-4.8) k/uL Monocytes # 0.3 (0-1.0) k/uL Eosinophils # 0.6 (0-0.7) k/uL Basophils # 0.0 (0-0.2) k/uL PT 10.4 (9.0-12.0) sec INR 1.0 (<1.2) APTT 24.4 (22.0-30.0) sec D-Dimer 0.47 (<0.60) mg/L FEU Sodium 142 (137-145) mmol/L Potassium 3.5 (3.5-5.1) mmol/L Chloride 113 H (98-107) mmol/L Carbon Dioxide 19 L (22-30) mmol/L Anion Gap 10 mmol/L BUN 9 (7-17) mg/dL Creatinine 0.80 (0.52-1.04) mg/dL Est GFR (CKD-EPI)AfAm >90 (>60 ml/min/1.73 sqM) Est GFR (CKD-EPI)NonAf >90 (>60 ml/min/1.73 sqM) Glucose 103 H (74-99) mg/dL Calcium 8.5 (8.4-10.2) mg/dL Magnesium 2.0 (1.6-2.3) mg/dL Total Bilirubin 0.4 (0.2-1.3) mg/dL AST 23 (14-36) U/L ALT 19 (4-34) U/L Alkaline Phosphatase 112 (38-126) U/L Troponin I (0.000-0.034) ng/mL NT-Pro-B Natriuret Pep pg/mL Total Protein 6.1 L (6.3-8.2) g/dL Albumin 3.5 (3.5-5.0) g/dL 04/05/21 04/05/21 Range/Units 05:04 05:04 WBC (3.8-10.6) k/uL RBC (3.80-5.40) m/uL Hgb (11.4-16.0) gm/dL Hct (34.0-46.0) % MCV (80.0-100.0) fL MCH (25.0-35.0) pg MCHC (31.0-37.0) g/dL RDW (11.5-15.5) % Plt Count (150-450) k/uL MPV Neutrophils % % Lymphocytes % % Monocytes % % Eosinophils % % Basophils % % Neutrophils # (1.3-7.7) k/uL Lymphocytes # (1.0-4.8) k/uL Monocytes # (0-1.0) k/uL Eosinophils # (0-0.7) k/uL Basophils # (0-0.2) k/uL PT (9.0-12.0) sec INR (<1.2) APTT (22.0-30.0) sec D-Dimer (<0.60) mg/L FEU Sodium (137-145) mmol/L Potassium (3.5-5.1) mmol/L Chloride (98-107) mmol/L Carbon Dioxide (22-30) mmol/L Anion Gap mmol/L BUN (7-17) mg/dL Creatinine (0.52-1.04) mg/dL Est GFR (CKD-EPI)AfAm (>60 ml/min/1.73 sqM) Est GFR (CKD-EPI)NonAf (>60 ml/min/1.73 sqM) Glucose (74-99) mg/dL Calcium (8.4-10.2) mg/dL Magnesium (1.6-2.3) mg/dL Total Bilirubin (0.2-1.3) mg/dL AST (14-36) U/L ALT (4-34) U/L Alkaline Phosphatase (38-126) U/L Troponin I <0.012 (0.000-0.034) ng/mL NT-Pro-B Natriuret Pep 46 pg/mL Total Protein (6.3-8.2) g/dL Albumin (3.5-5.0) g/dL - EKG Data -: EKG Interpreted by Me (EKG is sinus a cardia 112 AK 124 QRS 74 QTc 444) Disposition Clinical Impression: Asthma with acute exacerbation, Acute exacerbation of chronic obstructive pulmonary disease Disposition: HOME SELF-CARE Condition: Good Instructions (If sedation given, give patient instructions): Asthma (ED), Bronchospasm (ED) Is patient prescribed a controlled substance at d/c from ED?: No Referrals: Juanito Gutierrez Jr, [Primary Care Provider] - 1-2 days
[2021-04-05 05:14] LABS: Basophils % (A) 0 %; Eosinophils # (A) 0.6 k/uL (0-0.7); Eosinophils % (A) 8 %; HCT 38.8 % (34.0-46.0); HGB 13.5 gm/dL (11.4-16.0); Lymphocytes # (A) 2.3 k/uL (1.0-4.8); Lymphocytes % (A) 31 %; MCH 31.8 pg (25.0-35.0); MCHC 34.9 g/dL (31.0-37.0); MCV 91.2 fL (80.0-100.0); Mean Platelet Volume 8.1; Monocytes # (A) 0.3 k/uL (0-1.0); Monocytes % (A) 4 %; Neutrophils # (A) 4.1 k/uL (1.3-7.7); Neutrophils % (A) 55 %; Platelet Count 207 k/uL (150-450); RBC 4.25 m/uL (3.80-5.40); RDW 14.2 % (11.5-15.5); WBC 7.4 k/uL (3.8-10.6)
[2021-04-05 05:30] LABS: ALT 19 U/L (4-34); AST 23 U/L (14-36); African American GFR (CKD) >90 (>60 ml/min/1.73 sqM); Albumin 3.5 g/dL (3.5-5.0); Alkaline Phosphatase 112 U/L (38-126); Anion Gap 10 mmol/L; Blood Urea Nitrogen 9 mg/dL (7-17); Calcium 8.5 mg/dL (8.4-10.2); Carbon Dioxide 19 mmol/L (22-30); Chloride 113 mmol/L (98-107); Glucose 103 mg/dL (74-99); Non-African American GFR(CKD) >90 (>60 ml/min/1.73 sqM); Potassium 3.5 mmol/L (3.5-5.1); Sodium 142 mmol/L (137-145); Total Bilirubin 0.4 mg/dL (0.2-1.3); Total Protein 6.1 g/dL (6.3-8.2)
[2021-04-05 05:37] LABS: D-Dimer 0.47 mg/L FEU (<0.60); Partial Thromboplastin Time 24.4 sec (22.0-30.0); Prothrombin Time 10.4 sec (9.0-12.0)
--- NOTE | 2021-04-05 06:07 | XR ---
EXAMINATION TYPE: XR chest 2V DATE OF EXAM: 04/05/2021 COMPARISON: Chest x-ray October 02, 2019 HISTORY: History of asthma with shortness of breath TECHNIQUE: Frontal and lateral views of the chest are obtained. FINDINGS: There is no focal air space opacity, pleural effusion, or pneumothorax seen. The cardiac silhouette size is within normal limits. The osseous structures are intact. IMPRESSION: No acute process. No significant change from prior.
[2021-04-05 07:00] VITALS: BP 138/93; PULSE 108; RESP 20
== END 2021-04-05 06:55 | disposition home or self-care (01) ==
LOC: EC 04:36
DX: J44.1 Chronic obstructive pulmonary disease with (acute) exacerbation (principal); M79.7 Fibromyalgia; F41.9 Anxiety disorder, unspecified; F32.9 Major depressive disorder, single episode, unspecified; F12.90 Cannabis use, unspecified, uncomplicated; Z79.51 Long term (current) use of inhaled steroids
CPT/HCPCS: 36415; 71046; 80053; 83735; 83880; 84484; 85025; 85379; 85610; 85730; 93005; 94640; 96360; 96361; 99285

== ENCOUNTER 2022-02-09 13:43 | Emergency (ER) | payer OTHER ==
[2022-02-09 13:49] VITALS: RESP 18
[2022-02-09] MEDS ORDERED: MORPHINE SULFATE 4 MG/ML SYRINGE IVP STA (15:07)
[2022-02-09] MEDS ORDERED: SODIUM CHLORIDE 0.9% 1,000 ML IV ONE (15:07)
[2022-02-09 15:30] LABS: Basophils % (A) 0 %; Eosinophils # (A) 0.2 k/uL (0-0.7); Eosinophils % (A) 3 %; HCT 41.6 % (34.0-46.0); HGB 14.2 gm/dL (11.4-16.0); Lymphocytes # (A) 0.2 k/uL (1.0-4.8); Lymphocytes % (A) 3 %; MCH 31.3 pg (25.0-35.0); MCV 91.9 fL (80.0-100.0); Mean Platelet Volume 9.2; Monocytes # (A) 0.3 k/uL (0-1.0); Monocytes % (A) 5 %; Neutrophils # (A) 6.4 k/uL (1.3-7.7); Neutrophils % (A) 89 %; Platelet Count 183 k/uL (150-450); RBC 4.53 m/uL (3.80-5.40); RDW 13.5 % (11.5-15.5); WBC 7.1 k/uL (3.8-10.6)
[2022-02-09 15:41] LABS: ALT 20 U/L (4-34); AST 21 U/L (14-36); African American GFR (CKD) >90 (>60 ml/min/1.73 sqM); Albumin 3.9 g/dL (3.5-5.0); Alkaline Phosphatase 113 U/L (38-126); Anion Gap 10 mmol/L; Blood Urea Nitrogen 7 mg/dL (7-17); Calcium 8.6 mg/dL (8.4-10.2); Carbon Dioxide 19 mmol/L (22-30); Chloride 105 mmol/L (98-107); Glucose 100 mg/dL (74-99); Non-African American GFR(CKD) >90 (>60 ml/min/1.73 sqM); Potassium 3.7 mmol/L (3.5-5.1); Sodium 134 mmol/L (137-145); Total Bilirubin 0.7 mg/dL (0.2-1.3); Total Protein 6.7 g/dL (6.3-8.2)
[2022-02-09 16:21] LABS: Appearance,Urine Cloudy (Clear); Bilirubin,Urine Negative (Negative); Blood,Urine Large (Negative); Color,Urine Red; Glucose,Urine (UA) Negative (Negative); Ketones,Urine 1+ (Negative); Leukocyte Esterase,Urine Small (Negative); Nitrite,Urine Negative (Negative); PH, Urine 7.5 (5.0-8.0); Protein,Urine 1+ (Negative); RBC,Urine >182 /hpf (0-5); Squamous Epithelial Cell,Urine 9 /hpf (0-4); Urobilinogen,Urine <2.0 mg/dL (<2.0); WBC,Urine 110 /hpf (0-5)
[2022-02-09] MEDS ORDERED: ONDANSETRON 4 MG/2 ML VIAL IVP STA (16:21)
[2022-02-09 16:55] VITALS: PULSE 88
--- NOTE | 2022-02-09 17:06 | XR ---
EXAMINATION TYPE: XR abdomen acute w cxr DATE OF EXAM: 02/09/2022 4:29 PM INDICATION: Patient age:Female; 41 years old; Reason for study: abdominal pain; COMPARISON: None. COMPARISON: TECHNIQUE: Two radiographic views of the abdomen and an a chest radiograph were obtained. FINDINGS CHEST: Lungs/Pleura: The lungs are clear. There is no evidence of pleural effusion, focal consolidation or p neumothorax. Mediastinum: Unremarkable. Vasculature: Normal. Heart: Normal in size. Musculoskeletal: The osseous structures are intact. Other findings: No significant. FINDINGS ABDOMEN: Bowel gas pattern: Normal without dilated loops of small or large bowel. Fecal material and gas are d emonstrated throughout the colon and rectum. Abnormal calcifications: None. Musculoskeletal: Normal. Other: Right upper quadrant cholecystectomy clips. Pelvic phleboliths are seen projecting over the pe lvis. IMPRESSION: 1. No radiographic evidence for acute abdominal process. 2. No acute cardiopulmonary process
[2022-02-09] MEDS ORDERED: KETOROLAC 15 MG/ML 1 ML VIAL IVP STA (17:12)
--- NOTE | 2022-02-09 17:46 | ED ---
General Adult HPI - General Chief complaint: Fever Stated complaint: Fever Time Seen by Provider: 02/09/22 14:15 Source: patient, EMS Mode of arrival: EMS Limitations: no limitations - History of Present Illness Initial comments: Patient is a 41-year-old female presenting with chief complaint of fever and joint pain. Past medical history of fibromyalgia. States that today she noticed her typical fibromyalgia pain was much more intense than usual. She began experiencing nausea, vomiting and checked her temperature showed she had a fever. She took Tylenol and Motrin at home with little help in relieving the pain. When asked about where the pain is located she indicates "everything hurts". Patient describes the pain as "my whole body is on fire". Patient states that there are some diffuse abdominal pain due to the vomiting. Patient denies diarrhea, constipation, hematemesis, hematochezia, hemoptysis, cough, chest pain or shortness of breath, palpitations, weakness, - Related Data Home Medications Medication Instructions Recorded Confirmed Albuterol Nebulized [Ventolin 2.5 mg INHALATION RT-Q4H PRN 02/09/22 02/09/22 Nebulized] Albuterol Sulfate [Proair Hfa] 1 - 2 puff INHALATION RT-Q4H PRN 02/09/22 02/09/22 Paxil (Unknown Strength) 1 tab PO DAILY 02/09/22 02/09/22 Wellbutrin (Unknown Strength) 1 tab PO DAILY 02/09/22 02/09/22 Previous Rx's Medication Instructions Recorded Ondansetron Odt [Zofran Odt] 4 mg PO Q8HR PRN #10 tab 02/09/22 Allergies Allergy/AdvReac Type Severity Reaction Status Date / Time ascorbic acid Allergy Anaphylaxis Verified 02/09/22 15:56 [From Emergen-C Vitamin D-Calcium] calcium combination no.27 Allergy Anaphylaxis Verified 02/09/22 15:56 [From Emergen-C Vitamin D-Calcium] cholecalciferol (vitamin D3) Allergy Anaphylaxis Verified 02/09/22 15:56 [From Emergen-C Vitamin D-Calcium] diphenhydramine HCl Allergy Dyspnea Verified 02/09/22 15:56 [From Benadryl] Iodinated Contrast Media Allergy Anaphylaxis Verified 02/09/22 15:56 [Iodinated Contrast Media - IV Dye] multivitamin with minerals Allergy Anaphylaxis Verified 02/09/22 15:56 [From Emergen-C Vitamin D-Calcium] methylprednisolone AdvReac shaky & Verified 02/09/22 15:56 [From Medrol] anxious Review of Systems ROS Statement: Those systems with pertinent positive or pertinent negative responses have been documented in the HPI. ROS Other: All systems not noted in ROS Statement are negative. Past Medical History Past Medical History: Asthma, COPD, Fibromyalgia Additional Past Medical History / Comment(s): DDD, tmj, History of Any Multi-Drug Resistant Organisms: None Reported Past Surgical History: Adenoidectomy, Cholecystectomy, Ear Surgery, Tonsil lectomy Past Anesthesia/Blood Transfusion Reactions: Motion Sickness, Postoperative Nausea & Vomiting (PONV) Past Psychological History: Anxiety, Depression Smoking Status: Never smoker Past Alcohol Use History: None Reported Past Drug Use History: Marijuana General Exam Limitations: no limitations General appearance: alert, in no apparent distress Head exam: Present: atraumatic, normocephalic, normal inspection Eye exam: Present: normal appearance, PERRL, EOMI. Absent: scleral icterus, conjunctival injection, periorbital swelling ENT exam: Present: normal exam, mucous membranes moist Neck exam: Present: normal inspection. Absent: tenderness, meningismus, lymphadenopathy Respiratory exam: Present: normal lung sounds bilaterally. Absent: respiratory distress, wheezes, rales, rhonchi, stridor Cardiovascular Exam: Present: regular rate, normal rhythm, normal heart sounds. Absent: systolic murmur, diastolic murmur, rubs, gallop, clicks GI/Abdominal exam: Present: soft, normal bowel sounds. Absent: distended, tenderness, guarding, rebound, rigid Neurological exam: Present: alert, oriented X3, CN II-XII intact Psychiatric exam: Present: normal affect, normal mood Skin exam: Present: warm, dry, intact, normal color. Absent: rash Course Vital Signs 02/09/22 02/09/22 02/09/22 13:43 16:54 18:39 Temperature 101.2 F H 98.8 F 98.4 F Pulse Rate 121 H 88 88 Respiratory 18 18 18 Rate Blood Pressure 140/110 168/98 148/68 O2 Sat by Pulse 96 100 98 Oximetry Medical Decision Making - Medical Decision Making Patient is a 41-year-old female presenting with chief complaint of body aches and fever. She has a past medical history of fibromyalgia. Patient states that for the last 2 days she has been having nausea and vomiting. Today she noticed a fever and joint pain. This pain feels like a more intense version of her usu al fibromyalgia pain. Patient denies diarrhea, chest pain, shortness of breath, sore throat, ear pain, cough, constipation. On exam lungs are clear to auscultation, bowel sounds in all 4 quadrants. Abdomen is soft, nontender, nondistended. Patient was given 4 mg IVP Zofran, 4 mg IVP morphine and 15 mg IVP Toradol. Lab work is negative. Patient tested negative for Covid. Acute abdominal series is negative. Upon reassessment patient states that her symptoms have improved dramatically. Patient is stable to be discharged at this time. Prescribed her 4 mg Zofran every 8 hours as needed. Take Motrin and Tylenol for pain relief and fever control as needed. I educated patient on return parameters and alarming symptoms. Follow up with PCP in one to 2 days. Answered all questions. Patient conveyed verbal understanding and agreed to the plan. I discussed this case my attending Dr. Boyle. - Lab Data Result diagrams: 02/09/22 15:15 02/09/22 15:15 Lab Results 02/09/22 02/09/22 02/09/22 Range/Units 15:15 15:15 15:15 WBC 7.1 (3.8-10.6) k/uL RBC 4.53 (3.80-5.40) m/uL Hgb 14.2 (11.4-16.0) gm/dL Hct 41.6 (34.0-46.0) % MCV 91.9 (80.0-100.0) fL MCH 31.3 (25.0-35.0) pg MCHC 34.0 (31.0-37.0) g/dL RDW 13.5 (11.5-15.5) % Plt Count 183 (150-450) k/uL MPV 9.2 Neutrophils % 89 % Lymphocytes % 3 % Monocytes % 5 % Eosinophils % 3 % Basophils % 0 % Neutrophils # 6.4 (1.3-7.7) k/uL Lymphocytes # 0.2 L (1.0-4.8) k/uL Monocytes # 0.3 (0-1.0) k/uL Eosinophils # 0.2 (0-0.7) k/uL Basophils # 0.0 (0-0.2) k/uL Sodium 134 L (137-145) mmol/L Potassium 3.7 (3.5-5.1) mmol/L Chloride 105 (98-107) mmol/L Carbon Dioxide 19 L (22-30) mmol/L Anion Gap 10 mmol/L BUN 7 (7-17) mg/dL Creatinine 0.64 (0.52-1.04) mg/dL Est GFR (CKD-EPI)AfAm >90 (>60 ml/min/1.73 sqM) Est GFR (CKD-EPI)NonAf >90 (>60 ml/min/1.73 sqM) Glucose 100 H (74-99) mg/dL Calcium 8.6 (8.4-10.2) mg/dL Total Bilirubin 0.7 (0.2-1.3) mg/dL AST 21 (14-36) U/L ALT 20 (4-34) U/L Alkaline Phosphatase 113 (38-126) U/L Total Protein 6.7 (6.3-8.2) g/dL Albumin 3.9 (3.5-5.0) g/dL Urine Color Urine Appearance (Clear) Urine pH (5.0-8.0) Ur Specific [place] (1.001-1.035) Urine Protein (Negative) Urine Glucose (UA) (Negative) Urine Ketones (Negative) Urine Blood (Negative) Urine Nitrite (Negative) Urine Bilirubin (Negative) Urine Urobilinogen (<2.0) mg/dL Ur Leukocyte Esterase (Negative) Urine RBC (0-5) /hpf Urine WBC (0-5) /hpf Ur Squamous Epith Cells (0-4) /hpf Urine HCG, Qual Not Detected (Not Detectd) Coronavirus (PCR) (Not Detectd) 02/09/22 02/09/22 Range/Units 15:15 17:27 WBC (3.8-10.6) k/uL RBC (3.80-5.40) m/uL Hgb (11.4-16.0) gm/dL Hct (34.0-46.0) % MCV (80.0-100.0) fL MCH (25.0-35.0) pg MCHC (31.0-37.0) g/dL RDW (11.5-15.5) % Plt Count (150-450) k/uL MPV Neutrophils % % Lymphocytes % % Monocytes % % Eosinophils % % Basophils % % Neutrophils # (1.3-7.7) k/uL Lymphocytes # (1.0-4.8) k/uL Monocytes # (0-1.0) k/uL Eosinophils # (0-0.7) k/uL Basophils # (0-0.2) k/uL Sodium (137-145) mmol/L Potassium (3.5-5.1) mmol/L Chloride (98-107) mmol/L Carbon Dioxide (22-30) mmol/L Anion Gap mmol/L BUN (7-17) mg/dL Creatinine (0.52-1.04) mg/dL Est GFR (CKD-EPI)AfAm (>60 ml/min/1.73 sqM) Est GFR (CKD-EPI)NonAf (>60 ml/min/1.73 sqM) Glucose (74-99) mg/dL Calcium (8.4-10.2) mg/dL Total Bilirubin (0.2-1.3) mg/dL AST (14-36) U/L ALT (4-34) U/L Alkaline Phosphatase (38-126) U/L Total Protein (6.3-8.2) g/dL Albumin (3.5-5.0) g/dL Urine Color Red Urine Appearance Cloudy H (Clear) Urine pH 7.5 (5.0-8.0) Ur Specific [place] 1.020 (1.001-1.035) Urine Protein 1+ H (Negative) Urine Glucose (UA) Negative (Negative) Urine Ketones 1+ H (Negative) Urine Blood Large H (Negative) Urine Nitrite Negative (Negative) Urine Bilirubin Negative (Negative) Urine Urobilinogen <2.0 (<2.0) mg/dL Ur Leukocyte Esterase Small H (Negative) Urine RBC >182 H (0-5) /hpf Urine WBC 110 H (0-5) /hpf Ur Squamous Epith Cells 9 H (0-4) /hpf Urine HCG, Qual (Not Detectd) Coronavirus (PCR) Not Detected (Not Detectd) - Radiology Data Radiology results: report reviewed Acute abdominal series: No radiographic evidence for acute abdominal process. No acute cardiopulmonary process. Disposition Clinical Impression: Fever, Body aches Disposition: HOME SELF-CARE Condition: Good Instructions (If sedation given, give patient instructions): Fibromyalgia (ED), Fever in Adults (ED), Pain Management (ED) Additional Instructions: Follow-up with PCP in one to 2 days. Take Motrin and Tylenol as needed for fever and pain control. Take medications as prescribed. Report back to ER with any worsening symptoms or new onset alarm symptoms. Prescriptions: Ondansetron Odt [Zofran Odt] 4 mg PO Q8HR PRN #10 tab PRN Reason: Nausea Is patient prescribed a controlled substance at d/c from ED?: No Referrals: Juanito Gutierrez Jr, [Doctor of Osteopathic Medicine] - 1-2 days Time of Disposition: 18:28
[2022-02-09 18:39] VITALS: BP 148/68; TEMP 98.4
== END 2022-02-09 18:39 | disposition home or self-care (01) ==
LOC: EC 13:43
DX: R50.9 Fever, unspecified (principal); R52 Pain, unspecified; J45.909 Unspecified asthma, uncomplicated; Z20.822 Contact with and (suspected) exposure to COVID-19; Z91.09 Other allergy status, other than to drugs and biological substances; Z91.048 Other nonmedicinal substance allergy status; Z88.8 Allergy status to other drugs, medicaments and biological substances; Z91.041 Radiographic dye allergy status
CPT/HCPCS: 36415; 80053; 85025; 81001; 81025; 87086; 87635; 74022; 99284; 96374; 96375; 96361; J2270; J2405; J1885

== ENCOUNTER 2022-02-12 07:23 | Emergency (ER) | payer OTHER ==
[2022-02-12 07:29] VITALS: TEMP 98.6
--- NOTE | 2022-02-12 07:54 | ED ---
General Adult HPI - General Chief complaint: Shortness of Breath Stated complaint: ARACELIS Time Seen by Provider: 02/12/22 07:27 Source: patient, EMS, RN notes reviewed Mode of arrival: EMS Limitations: no limitations - History of Present Illness Initial comments: This a 41-year-old female presents emergency Department chief complaint of shortness of breath. Patient seen here for days ago fever cough congestion and negative workup at that time. Patient states that she ran out of her inhaler noted having increasing wheezing today in which she called EMS. EMS did give her breathing treatments she feels greatly improved. She states her fever resolved 2 days ago. Patient does not that she has underlying lung disease denies any abdominal pain including nausea and diarrhea constipation no chest pain no headache no dizziness currently. - Related Data Home Medications Medication Instructions Recorded Confirmed Albuterol Nebulized [Ventolin 2.5 mg INHALATION RT-Q4H PRN 02/09/22 02/09/22 Nebulized] Albuterol Sulfate [Proair Hfa] 1 - 2 puff INHALATION RT-Q4H PRN 02/09/22 02/09/22 Paxil (Unknown Strength) 1 tab PO DAILY 02/09/22 02/09/22 Wellbutrin (Unknown Strength) 1 tab PO DAILY 02/09/22 02/09/22 Previous Rx's Medication Instructions Recorded Ondansetron Odt [Zofran Odt] 4 mg PO Q8HR PRN #10 tab 02/09/22 Albuterol Sulfate [Proair Hfa] 1 - 2 puff INHALATION Q4HR PRN 02/12/22 #8.5 gm Ipratropium-Albuterol Nebulize 3 ml INHALATION QID #25 each 02/12/22 [Duoneb 0.5 mg-3 mg/3 ml Soln] predniSONE 50 mg PO DAILY #5 tab 02/12/22 Allergies Allergy/AdvReac Type Severity Reaction Status Date / Time ascorbic acid Allergy Anaphylaxis Verified 02/09/22 15:56 [From Emergen-C Vitamin D-Calcium] calcium combination no.27 Allergy Anaphylaxis Verified 02/09/22 15:56 [From Emergen-C Vitamin D-Calcium] cholecalciferol (vitamin D3) Allergy Anaphylaxis Verified 02/09/22 15:56 [From Emergen-C Vitamin D-Calcium] diphenhydramine HCl Allergy Dyspnea Verified 02/09/22 15:56 [From Benadryl] Iodinated Contrast Media Allergy Anaphylaxis Verified 02/09/22 15:56 [Iodinated Contrast Media - IV Dye] multivitamin with minerals Allergy Anaphylaxis Verified 02/09/22 15:56 [From Emergen-C Vitamin D-Calcium] methylprednisolone AdvReac shaky & Verified 02/09/22 15:56 [From Medrol] anxious Review of Systems ROS Statement: Those systems with pertinent positive or pertinent negative responses have been documented in the HPI. ROS Other: All systems not noted in ROS Statement are negative. Past Medical History Past Medical History: Asthma, COPD, Fibromyalgia Additional Past Medical History / Comment(s): DDD, tmj, History of Any Multi-Drug Resistant Organisms: None Reported Past Surgical History: Adenoidectomy, Cholecystectomy, Ear Surgery, Tonsillectomy Past Anesthesia/Blood Transfusion Reactions: Motion Sickness, Postoperative Nausea & Vomiting (PONV) Past Psychological History: Anxiety, Depression Smoking Status: Never smoker Past Alcohol Use History: None Reported Past Drug Use History: Marijuana General Exam Limitations: no limitations General appearance: alert, in no apparent distress Head exam: Present: atraumatic, normocephalic, normal inspection Eye exam: Present: normal appearance, PERRL, EOMI. Absent: scleral icterus, conjunctival injection, periorbital swelling ENT exam: Present: normal exam, normal oropharynx, mucous membranes moist Neck exam: Present: normal inspection, full ROM. Absent: tenderness, meningismus, lymphadenopathy Respiratory exam: Present: wheezes, decreased breath sounds. Absent: normal lung sounds bilaterally, respiratory distress, rales, rhonchi, stridor Cardiovascular Exam: Present: normal rhythm, tachycardia, normal heart sounds. Absent: systolic murmur, diastolic murmur, rubs, gallop, clicks Neurological exam: Present: alert Skin exam: Present: warm, dry, intact, normal color. Absent: rash Course Vital Signs 02/12/22 02/12/22 07:24 07:29 Temperature 98.6 F Pulse Rate 117 H Respiratory 20 20 Rate Blood Pressure 141/83 O2 Sat by Pulse 97 Oximetry Medical Decision Making - Medical Decision Making 41-year-old female presented for cough congestion shortness of breath. Patient's influenza A positive. Patient chest x-ray unremarkable she does feel greatly improved after DuoNeb treatment. Patient was given prednisone. Patient will continue prednisone, by refill of inhaler. Return parameters were discussed. - Lab Data Lab Results 02/12/22 Range/Units 07:33 Influenza Type A RNA Detected H (Not Detectd) Influenza Type B (PCR) Not Detected (Not Detectd) Disposition Clinical Impression: Influenza A Disposition: HOME SELF-CARE Condition: Stable Instructions (If sedation given, give patient instructions): Influenza (ED) Additional Instructions: Please return to the Emergency Department if symptoms worsen or any other concerns. Prescriptions: Ipratropium-Albuterol Nebulize [Duoneb 0.5 mg-3 mg/3 ml Soln] 3 ml INHALATION QID #25 each predniSONE 50 mg PO DAILY #5 tab Albuterol Sulfate [Proair Hfa] 1 - 2 puff INHALATION Q4HR PRN #8.5 gm PRN Reason: difficulty in breathing Is patient prescribed a controlled substance at d/c from ED?: No Referrals: None,Stated [Primary Care Provider] - 1-2 days Time of Disposition: 08:12
--- NOTE | 2022-02-12 08:02 | XR ---
EXAMINATION TYPE: XR chest 2V DATE OF EXAM: 02/12/2022 COMPARISON: 04/05/2021 HISTORY: 41 year-old female shortness of breath TECHNIQUE: PA and lateral views FINDINGS: The cardiomediastinal silhouette, aorta, and pulmonary vasculature are within normal limits. Lungs an d pleural spaces are clear. IMPRESSION: No acute cardiopulmonary process.
[2022-02-12 08:19] VITALS: BP 152/98; PULSE 109; RESP 18
== END 2022-02-12 08:17 | disposition home or self-care (01) ==
LOC: EC 07:23
DX: Z88.8 Allergy status to other drugs, medicaments and biological substances (principal); Z91.041 Radiographic dye allergy status; Z91.048 Other nonmedicinal substance allergy status; J45.909 Unspecified asthma, uncomplicated; J10.1 Influenza due to other identified influenza virus with other respiratory manifestations
CPT/HCPCS: 71046; 87502; 99285

== ENCOUNTER 2022-05-14 07:56 | Emergency (ER) | payer OTHER ==
[2022-05-14] MEDS ORDERED: predniSONE 20 MG TAB PO STA (08:06)
[2022-05-14] MEDS ORDERED: MAGNESIUM SULFATE-D5W PMX 1 GM in DEXTROSE/WATER 1 100ML.BAG IVPB STA (08:06)
[2022-05-14] MEDS ORDERED: IPRATROPIUM-ALBUTEROL 3 ML NEB INHALATION STA (08:06)
[2022-05-14 08:09] VITALS: RESP 18; TEMP 97.6
[2022-05-14 08:29] LABS: Basophils # (A) 0.1 k/uL (0-0.2); Basophils % (A) 1 %; Eosinophils # (A) 0.5 k/uL (0-0.7); Eosinophils % (A) 6 %; HCT 41.6 % (34.0-46.0); HGB 14.1 gm/dL (11.4-16.0); Lymphocytes # (A) 1.5 k/uL (1.0-4.8); Lymphocytes % (A) 19 %; MCH 32.1 pg (25.0-35.0); MCHC 33.9 g/dL (31.0-37.0); MCV 94.9 fL (80.0-100.0); Monocytes # (A) 0.3 k/uL (0-1.0); Monocytes % (A) 4 %; Neutrophils # (A) 5.7 k/uL (1.3-7.7); Neutrophils % (A) 70 %; Platelet Count 205 k/uL (150-450); RBC 4.38 m/uL (3.80-5.40); RDW 13.8 % (11.5-15.5); WBC 8.2 k/uL (3.8-10.6)
--- NOTE | 2022-05-14 08:39 | ED ---
SOB HPI - General Chief Complaint: Shortness of Breath Stated Complaint: asthma attack Time Seen by Provider: 05/14/22 08:00 Source: patient, EMS Mode of arrival: EMS Limitations: no limitations - History of Present Illness Initial Comments: 42-year-old female past medical history of asthma presents to the emergency department with shortness of breath. Reports that she began having shortness of breath earlier this morning. She attempted to use her nebulizer at home. Initially had relief of symptoms however the shortness of breath quickly returned. 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 States that her suture issues were managed by her primary care however she is in the process of transferring to a new primary care physician. Previously in the past she had taken Singulair and uses an Advair inhaler that she will have increased frequency of asthma exacerbations in the summer due to environmental allergens. She has been previously hospitalized for ALLERGY and asthma attack. Denies ever being on a ventilator for respiratory failure. No recent steroid use. Last steroid burst was in June of last year. Denies concern for . No fevers, chills or cough. No sick contacts with similar symptoms. Patient had Covid in October. EMS was called to the patient's house and she was transported to our facility. One DuoNeb breathing treatment was provided. No other alleviating, precipitating or modifying factors - Related Data Home Medications Medication Instructions Recorded Confirmed Albuterol Sulfate [Proair Hfa] 1 - 2 puff INHALATION RT-Q4H PRN 05/14/22 05/14/22 Ipratropium-Albuterol Nebulize 3 ml INHALATION RT-QID PRN 05/14/22 05/14/22 [Duoneb 0.5 mg-3 mg/3 ml Soln] Previous Rx's Medication Instructions Recorded Albuterol Sulfate [Proair Hfa] 1 - 2 puff INHALATION Q4HR PRN 05/14/22 #8.5 gm Beclomethasone Dipropionate [Qvar 1 puff INHALATION DAILY #10.6 gm 05/14/22 40 mcg Redihaler] Ipratropium-Albuterol Nebulize 3 ml INHALATION Q4HR #90 ml 05/14/22 [Duoneb 0.5 mg-3 mg/3 ml Soln] Montelukast [Singulair] 10 mg PO HS #30 tab 05/14/22 predniSONE [Deltasone] 20 mg PO BID #10 tab 05/14/22 Allergies Allergy/AdvReac Type Severity Reaction Status Date / Time ascorbic acid Allergy Anaphylaxis Verified 05/14/22 09:22 [From Emergen-C Vitamin D-Calcium] calcium combination no.27 Allergy Anaphylaxis Verified 05/14/22 09:22 [From Emergen-C Vitamin D-Calcium] cholecalciferol (vitamin D3) Allergy Anaphylaxis Verified 05/14/22 09:22 [From Emergen-C Vitamin D-Calcium] diphenhydramine HCl Allergy Dyspnea Verified 05/14/22 09:22 [From Benadryl] Iodinated Contrast Media Allergy Anaphylaxis Verified 05/14/22 09:22 [Iodinated Contrast Media - IV Dye] multivitamin with minerals Allergy Anaphylaxis Verified 05/14/22 09:22 [From Emergen-C Vitamin D-Calcium] methylprednisolone AdvReac shaky & Verified 05/14/22 09:22 [From Medrol] anxious Review of Systems ROS Statement: Those systems with pertinent positive or pertinent negative responses have been documented in the HPI. ROS Other: All systems not noted in ROS Statement are negative. Past Medical History Past Medical History: Asthma, COPD, Fibromyalgia Additional Past Medical History / Comment(s): DDD, tmj, History of Any Multi-Drug Resistant Organisms: None Reported Past Surgical History: Adenoidectomy, Cholecystectomy, Ear Surgery, Tonsillectomy Past Anesthesia/Blood Transfusion Reactions: Motion Sickness, Postoperative Nausea & Vomiting (PONV) Past Psychological History: Anxiety, Depression Smoking Status: Never smoker Past Alcohol Use History: None Reported Past Drug Use History: Marijuana General Exam Limitations: no limitations General appearance: alert, in no apparent distress Head exam: Present: atraumatic, normocephalic, normal inspection Eye exam: Present: normal appearance, PERRL, EOMI. Absent: scleral icterus, conjunctival injection, periorbital swelling ENT exam: Present: normal exam, mucous membranes moist Neck exam: Present: normal inspection. Absent: tenderness, meningismus, lymphadenopathy Respiratory exam: Present: wheezes, accessory muscle use, other (tachypnia). Absent: respiratory distress, rales, rhonchi, stridor Cardiovascular Exam: Present: regular rate, normal rhythm, normal heart sounds. Absent: systolic murmur, diastolic murmur, rubs, gallop, clicks GI/Abdominal exam: Present: soft, normal bowel sounds. Absent: distended, tenderness, guarding, rebound, rigid Extremities exam: Present: normal inspection, full ROM, normal capillary refill. Absent: tenderness, pedal edema, joint swelling, calf tenderness Back exam: Present: normal inspection Neurological exam: Present: alert, oriented X3, CN II-XII intact Psychiatric exam: Present: normal affect, normal mood Skin exam: Present: warm, dry, intact, normal color. Absent: rash Course Vital Signs 05/14/22 05/14/22 05/14/22 07:58 08:59 09:09 Temperature 97.6 F Pulse Rate 85 86 85 Respiratory 18 Rate Blood Pressure 113/83 O2 Sat by Pulse 96 Oximetry 05/14/22 09:50 Temperature Pulse Rate 80 Respiratory 18 Rate Blood Pressure 126/78 O2 Sat by Pulse 98 Oximetry Medical Decision Making - Medical Decision Making Upon arrival patient was placed into room 2. Thorough history and physical exam was performed and patient placed on continuous pulse ox and cardiac monitoring. Oxygen saturations are 96% on room air without increased work of breathing. IV access established. Patient was given 1 mg of magnesium and 125 mg of Solu- Medrol due to diffuse airway wheezing heard in the right lung as well as the lef t apical region. Diminished breath sounds in the left lower lung [place]. DuoNeb breathing treatments also administered. Laboratory studies are conducted. Chest x-ray demonstrates no acute process. Reevaluation of the patient demonstrates considerable decrease in the patient's wheezing. She feels comfortable discharge home at this time. We will initiate the patient back on Singulair and Qvar at this time. She will additionally be placed on a steroid course. I did refill the patient's DuoNeb medication and rescue inhaler. She is instructed to follow-up with her primary care doctor in 2-4 days. Return for any new or worsening symptoms. Patient agreed to treatment plan she was discha rged home in stable condition - Lab Data Result diagrams: 05/14/22 08:22 05/14/22 08:22 Lab Results 05/14/22 05/14/22 Range/Units 08: 08:22 WBC 8.2 (3.8-10.6) k/uL RBC 4.38 (3.80-5.40) m/uL Hgb 14.1 (11.4-16.0) gm/dL Hct 41.6 (34.0-46.0) % MCV 94.9 (80.0-100.0) fL MCH 32.1 (25.0-35.0) pg MCHC 33.9 (31.0-37.0) g/dL RDW 13.8 (11.5-15.5) % Plt Count 205 (150-450) k/uL MPV 9.0 Neutrophils % 70 % Lymphocytes % 19 % Monocytes % 4 % Eosinophils % 6 % Basophils % 1 % Neutrophils # 5.7 (1.3-7.7) k/uL Lymphocytes # 1.5 (1.0-4.8) k/uL Monocytes # 0.3 (0-1.0) k/uL Eosinophils # 0.5 (0-0.7) k/uL Basophils # 0.1 (0-0.2) k/uL Sodium 137 (137-145) mmol/L Potassium 4.4 (3.5-5.1) mmol/L Chloride 109 H (98-107) mmol/L Carbon Dioxide 22 (22-30) mmol/L Anion Gap 6 mmol/L BUN 17 (7-17) mg/dL Creatinine 0.79 (0.52-1.04) mg/dL Est GFR (CKD-EPI)AfAm >90 (>60 ml/min/1.73 sqM) Est GFR (CKD-EPI)NonAf >90 (>60 ml/min/1.73 sqM) Glucose 94 (74-99) mg/dL Calcium 8.8 (8.4-10.2) mg/dL Total Bilirubin 0.4 (0.2-1.3) mg/dL AST 22 (14-36) U/L ALT 20 (4-34) U/L Alkaline Phosphatase 121 (38-126) U/L Total Protein 6.7 (6.3-8.2) g/dL Albumin 4.1 (3.5-5.0) g/dL - EKG Data EKG Comments: EKG demonstrates sinus rhythm with a rate of 90. MN interval 142. QRS 82. QTC of 393. No acute ST segment elevations or depressions concerning for ischemic changes Disposition Clinical Impression: Acute respiratory insufficiency, Asthma exacerbation Disposition: HOME SELF-CARE Condition: Stable Instructions (If sedation given, give patient instructions): Asthma (ED) Additional Instructions: Please take the medications as directed. Follow up with yourr primary care doctor and return for any new or worsening symptoms Prescriptions: predniSONE [Deltasone] 20 mg PO BID #10 tab Ipratropium-Albuterol Nebulize [Duoneb 0.5 mg-3 mg/3 ml Soln] 3 ml INHALATION Q4HR #90 ml Albuterol Sulfate [Proair Hfa] 1 - 2 puff INHALATION Q4HR PRN #8.5 gm PRN Reason: Shortness Of Breath Beclomethasone Dipropionate [Qvar 40 mcg Redihaler] 1 puff INHALATION DAILY #10.6 gm Montelukast [Singulair] 10 mg PO HS #30 tab Is patient prescribed a controlled substance at d/c from ED?: No Referrals: None,Stated [Primary Care Provider] - 1-2 days Ryan Dejesus MD [Medical Doctor] - 1-2 days Time of Disposition: 09:35
[2022-05-14 08:44] LABS: ALT 20 U/L (4-34); AST 22 U/L (14-36); African American GFR (CKD) >90 (>60 ml/min/1.73 sqM); Albumin 4.1 g/dL (3.5-5.0); Alkaline Phosphatase 121 U/L (38-126); Anion Gap 6 mmol/L; Blood Urea Nitrogen 17 mg/dL (7-17); Calcium 8.8 mg/dL (8.4-10.2); Carbon Dioxide 22 mmol/L (22-30); Chloride 109 mmol/L (98-107); Glucose 94 mg/dL (74-99); Non-African American GFR(CKD) >90 (>60 ml/min/1.73 sqM); Potassium 4.4 mmol/L (3.5-5.1); Sodium 137 mmol/L (137-145); Total Bilirubin 0.4 mg/dL (0.2-1.3); Total Protein 6.7 g/dL (6.3-8.2)
--- NOTE | 2022-05-14 09:00 | XR ---
EXAMINATION TYPE: XR chest 2V DATE OF EXAM: 05/14/2022 COMPARISON: 02/12/2022 INDICATION: Difficulty breathing TECHNIQUE: Frontal and lateral views of the chest are obtained. FINDINGS: The heart size is normal. The pulmonary vasculature is normal. The lungs are clear. IMPRESSION: 1. No acute pulmonary process.
[2022-05-14 09:51] VITALS: BP 126/78; PULSE 80
== END 2022-05-14 09:51 | disposition home or self-care (01) ==
LOC: EC 07:56
DX: J45.901 Unspecified asthma with (acute) exacerbation (principal); F12.90 Cannabis use, unspecified, uncomplicated
CPT/HCPCS: 36415; 93005; 80053; 85025; 71046; 99285; 96365; J3475; J7512

== ENCOUNTER 2022-08-26 06:28 | Emergency (ER) | payer OTHER ==
[2022-08-26 06:39] VITALS: BP 159/116; PULSE 101; RESP 20; TEMP 98
--- NOTE | 2022-08-26 07:03 | XR ---
Left shoulder HISTORY: Pain following trauma. COMPARISON: None. TECHNIQUE: 3 views of the left shoulder were obtained. FINDINGS: There is no fracture, dislocation, intraosseous or intra-articular abnormality. There is no radiopaqu e foreign body or abnormal soft tissue calcification. IMPRESSION: No significant abnormality seen.
[2022-08-26] MEDS ORDERED: KETOROLAC 15 MG/ML 1 ML VIAL IVP STA (07:21)
--- NOTE | 2022-08-26 07:22 | ED ---
Upper Extremity HPI - General Chief Complaint: Extremity Injury, Upper Stated Complaint: LT shoulder injury Time Seen by Provider: 08/26/22 07:20 Source: patient, RN notes reviewed Mode of arrival: ambulatory Limitations: no limitations - History of Present Illness Initial Comments: Patient is a 42-year-old female presenting to the emergency room with complaints of left shoulder pain ongoing for 3 days without significant improvement. She denies any worsening of the pain. She states that the pain began after lifting her sons dialysis bags into their storage area She has been applying ice and reports that she has full range of motion however it is painful. She denies any swelling, popping or locking of her shoulder. She denies any pain in any other joints. She has a past medical history significant for asthma, COPD and fibromyalgia. - Related Data Home Medications Medication Instructions Recorded Confirmed Albuterol Sulfate [Proair Hfa] 1 - 2 puff INHALATION RT-Q4H PRN 05/14/22 05/14/22 Ipratropium-Albuterol Nebulize 3 ml INHALATION RT-QID PRN 05/14/22 05/14/22 [Duoneb 0.5 mg-3 mg/3 ml Soln] Previous Rx's Medication Instructions Recorded Albuterol Sulfate [Proair Hfa] 1 - 2 puff INHALATION Q4HR PRN 05/14/22 #8.5 gm Beclomethasone Dipropionate [Qvar 1 puff INHALATION DAILY #10.6 gm 05/14/22 40 mcg Redihaler] Ipratropium-Albuterol Nebulize 3 ml INHALATION Q4HR #90 ml 05/14/22 [Duoneb 0.5 mg-3 mg/3 ml Soln] Montelukast [Singulair] 10 mg PO HS #30 tab 05/14/22 predniSONE [Deltasone] 20 mg PO BID #10 tab 05/14/22 Allergies Allergy/AdvReac Type Severity Reaction Status Date / Time ascorbic acid Allergy Anaphylaxis Verified 08/26/22 06:39 [From Emergen-C Vitamin D-Calcium] calcium combination no.27 Allergy Anaphylaxis Verified 08/26/22 06:39 [From Emergen-C Vitamin D-Calcium] cholecalciferol (vitamin D3) Allergy Anaphylaxis Verified 08/26/22 06:39 [From Emergen-C Vitamin D-Calcium] diphenhydramine HCl Allergy Dyspnea Verified 08/26/22 06:39 [From Benadryl] Iodinated Contrast Media Allergy Anaphylaxis Verified 08/26/22 06:39 [Iodinated Contrast Media - IV Dye] multivitamin with minerals Allergy Anaphylaxis Verified 08/26/22 06:39 [From Emergen-C Vitamin D-Calcium] methylprednisolone AdvReac shaky & Verified 08/26/22 06:39 [From Medrol] anxious Review of Systems ROS Statement: Those systems with pertinent positive or pertinent negative responses have been documented in the HPI. ROS Other: All systems not noted in ROS Statement are negative. Past Medical History Past Medical History: Asthma, COPD, Fibromyalgia Additional Past Medical History / Comment(s): DDD, tmj, History of Any Multi-Drug Resistant Organisms: None Reported Past Surgical History: Adenoidectomy, Cholecystectomy, Ear Surgery, Tonsillectom y Past Anesthesia/Blood Transfusion Reactions: Motion Sickness, Postoperative Nausea & Vomiting (PONV) Past Psychological History: Anxiety, Depression Smoking Status: Never smoker Past Alcohol Use History: None Reported Past Drug Use History: Marijuana General Exam General appearance: alert, in no apparent distress Head exam: Present: atraumatic, normocephalic, normal inspection Eye exam: Present: normal appearance, PERRL, EOMI. Absent: scleral icterus, conjunctival injection, periorbital swelling ENT exam: Present: normal exam, mucous membranes moist Neck exam: Present: normal inspection, full ROM. Absent: tenderness, lymphadenopathy Respiratory exam: Absent: respiratory distress, accessory muscle use Cardiovascular Exam: Present: regular rate Left Shoulder Exam: Present: normal inspection, full ROM, tenderness over AC joint. Absent: swelling, abrasion, laceration, ecchymosis, deformity, crepitus, erythema Vascular: Absent: vascular compromise Back exam: Present: normal inspection Neurological exam: Present: alert, oriented X3, CN II-XII intact Psychiatric exam: Present: normal affect, normal mood Skin exam: Present: warm, dry, intact, normal color. Absent: rash Course Vital Signs 08/26/22 06:37 Temperature 98 F Pulse Rate 101 H Respiratory 20 Rate Blood Pressure 159/116 O2 Sat by Pulse 97 Oximetry Medical Decision Making - Medical Decision Making 42-year-old female presenting with left shoulder pain after heavy lifting 3 days ago without improvement. Will check x-ray of the left shoulder. Full range of motion intact. Will give Toradol IM for pain and monitor response. X-ray negative for acute osseous abnormalities joint space normal. Pain improved with Toradol. Will discharge home with encouragement of range of motion as tolerated, use of kinetic tape to help support shoulder joint acutely and Tylenol or ibuprofen [id number] as needed for pain. Case discussed with Dr. Cheng. - Radiology Data Radiology results: report reviewed, image reviewed X-ray left shoulder complete findings there is no fracture, dislocation or intraosseous or intra-articular abnormalities. There is no radial opaque foreign body or abnormal soft tissue calcification. No significant abnormality seen. Disposition Clinical Impression: Strain of shoulder Disposition: HOME SELF-CARE Condition: Stable Instructions (If sedation given, give patient instructions): Shoulder Sprain (ED) Additional Instructions: Please perform range of motion as tolerated, use of kinetic tape to help support shoulder joint acutely and Tylenol or ibuprofen [id number] as needed for pain. Please follow-up with your primary care provider. Please return to the Emergency Department if symptoms worsen or any other concerns. Is patient prescribed a controlled substance at d/c from ED?: No Referrals: None,Stated [Primary Care Provider] - 1-2 days Time of Disposition: 07:47
[2022-08-26] MEDS ORDERED: KETOROLAC 15 MG/ML 1 ML VIAL IM STA (07:47)
== END 2022-08-26 07:52 | disposition home or self-care (01) ==
LOC: EC 06:28
DX: S46.012A Strain of muscle(s) and tendon(s) of the rotator cuff of left shoulder, initial encounter (principal); J44.9 Chronic obstructive pulmonary disease, unspecified; Z79.51 Long term (current) use of inhaled steroids; Z91.041 Radiographic dye allergy status; Z88.8 Allergy status to other drugs, medicaments and biological substances; X50.0XXA Overexertion from strenuous movement or load, initial encounter
CPT/HCPCS: 73030; 99283; 96372; J1885

== ENCOUNTER 2022-09-11 23:41 | Emergency (ER) | payer OTHER ==
--- NOTE | 2022-09-12 00:41 | XR ---
EXAMINATION TYPE: XR chest 2V DATE OF EXAM: 09/12/2022 COMPARISON: 05/14/2022 HISTORY: Short of breath TECHNIQUE: FINDINGS: Heart and mediastinum are normal. Lungs are clear. Diaphragm is normal. Bony thorax is inta ct. IMPRESSION: Normal chest. No change.
[2022-09-12] MEDS ORDERED: IPRATROPIUM-ALBUTEROL 3 ML NEB INHALATION STA (01:04)
[2022-09-12 02:56] VITALS: RESP 16
--- NOTE | 2022-09-12 02:59 | ED ---
SOB HPI - General Chief Complaint: Shortness of Breath Stated Complaint: ARACELIS, hx:asthma Time Seen by Provider: 09/12/22 01:24 Source: patient Mode of arrival: wheelchair Limitations: no limitations - History of Present Illness Initial Comments: Patient is a 42-year-old female with history of asthma presenting with chief complaint of difficulty breathing. Patient states that symptoms started today. Patient states that with the change of seasons and follow is typically aggravate her asthma. She admits to wheezing. No chest pain or palpitations. Patient nebulizer treatments at home but was still experiencing symptoms. She denies any fever, chills, cough, congestion, sore throat, nausea, vomiting, abdominal pain. - Related Data Home Medications Medication Instructions Recorded Confirmed Albuterol Sulfate [Proair Hfa] 1 - 2 puff INHALATION RT-Q4H PRN 05/14/22 05/14/22 Ipratropium-Albuterol Nebulize 3 ml INHALATION RT-QID PRN 05/14/22 05/14/22 [Duoneb 0.5 mg-3 mg/3 ml Soln] Previous Rx's Medication Instructions Recorded Albuterol Sulfate [Proair Hfa] 1 - 2 puff INHALATION Q4HR PRN 05/14/22 #8.5 gm Beclomethasone Dipropionate [Qvar 1 puff INHALATION DAILY #10.6 gm 05/14/22 40 mcg Redihaler] Ipratropium-Albuterol Nebulize 3 ml INHALATION Q4HR #90 ml 05/14/22 [Duoneb 0.5 mg-3 mg/3 ml Soln] Montelukast [Singulair] 10 mg PO HS #30 tab 05/14/22 predniSONE [Deltasone] 20 mg PO BID #10 tab 05/14/22 Albuterol Sulfate [Albuterol 2 puff PO Q6H #8.5 gm 09/12/22 Sulfate Hfa] Ipratropium-Albuterol Nebulize 3 ml INHALATION Q4HR PRN #90 ml 09/12/22 [Duoneb 0.5 mg-3 mg/3 ml Soln] methylPREDNISolone Dose Pack 4 mg PO DIRECTED #1 packet 09/12/22 [Medrol Dose Pack] Allergies Allergy/AdvReac Type Severity Reaction Status Date / Time ascorbic acid Allergy Anaphylaxis Verified 08/26/22 06:39 [From Emergen-C Vitamin D-Calcium] calcium combination no.27 Allergy Anaphylaxis Verified 08/26/22 06:39 [From Emergen-C Vitamin D-Calcium] cholecalciferol (vitamin D3) Allergy Anaphylaxis Verified 08/26/22 06:39 [From Emergen-C Vitamin D-Calcium] diphenhydramine HCl Allergy Dyspnea Verified 08/26/22 06:39 [From Benadryl] Iodinated Contrast Media Allergy Anaphylaxis Verified 08/26/22 06:39 [Iodinated Contrast Media - IV Dye] multivitamin with minerals Allergy Anaphylaxis Verified 08/26/22 06:39 [From Emergen-C Vitamin D-Calcium] methylprednisolone AdvReac shaky & Verified 08/26/22 06:39 [From Medrol] anxious Review of Systems ROS Statement: Those systems with pertinent positive or pertinent negative responses have been documented in the HPI. ROS Other: All systems not noted in ROS Statement are negative. Past Medical History Past Medical History: Asthma, COPD, Fibromyalgia Additional Past Medical History / Comment(s): DDD, tmj, History of Any Multi-Drug Resistant Organisms: None Reported Past Surgical History: Adenoidectomy, Cholecystectomy, Ear Surgery, Tonsillectomy Past Anesthesia/Blood Transfusion Reactions: Motion Sickness, Postoperative Nausea & Vomiting (PONV) Past Psychological History: Anxiety, Depression Smoking Status: Never smoker Past Alcohol Use History: None Reported Past Drug Use History: Marijuana General Exam Limitations: no limitations General appearance: alert, in no apparent distress Head exam: Present: atraumatic, normocephalic, normal inspection Eye exam: Present: normal appearance, PERRL, EOMI. Absent: scleral icterus, conjunctival injection, periorbital swelling Neck exam: Absent: normal inspection Respiratory exam: Present: normal lung sounds bilaterally. Absent: respiratory distress, wheezes, rales, rhonchi, stridor Cardiovascular Exam: Present: regular rate, normal rhythm, normal heart sounds. Absent: systolic murmur, diastolic murmur, rubs, gallop, clicks Neurological exam: Present: alert, oriented X3, CN II-XII intact Psychiatric exam: Present: normal affect, normal mood Skin exam: Present: warm, dry, intact, normal color. Absent: rash Course Vital Signs 09/11/22 09/12/22 09/12/22 23:44 01:10 01:17 Temperature 97.6 F Pulse Rate 100 88 96 Respiratory 18 Rate Blood Pressure 120/83 O2 Sat by Pulse 96 Oximetry 09/12/22 09/12/22 09/12/22 01:18 02:56 03:34 Temperature 96.8 F L Pulse Rate 73 74 96 Respiratory 18 16 16 Rate Blood Pressure 119/92 109/54 O2 Sat by Pulse 97 98 Oximetry Medical Decision Making - Medical Decision Making Patient is a 42-year-old female history of asthma presenting with chief complaint of difficulty breathing. She states it feels like her typical asthma exacerbation with the change of seasons. Physical examination is unremarkable. Patient reports great improvement after breathing treatment. Chest negative for Covid and influenza. Chest x-ray shows no acute process. Patient is in need of refills for her inhaler, nebulizer at home. She is also prescribed Medrol Dosepak. Follow-up with PCP. Report back to ER with any new or worsening symptoms. Discussed return parameters and answered all questions. Patient conveyed verbal understanding and agreed to the plan. I discussed this case in detail with my attending Dr. Aparicio - Lab Data Lab Results 09/12/22 09/12/22 Range/Units 02:12 02:12 Coronavirus (PCR) Not Detected (Not Detectd) Influenza Type A RNA Not Detected (Not Detectd) Influenza Type B (PCR) Not Detected (Not Detectd) Disposition Clinical Impression: Asthma exacerbation Disposition: HOME SELF-CARE Condition: Good Instructions (If sedation given, give patient instructions): Asthma (ED) Additional Instructions: Follow-up with PCP. Report back to ER with any new or worsening symptoms. Take medication as prescribed. Prescriptions: Albuterol Sulfate [Albuterol Sulfate Hfa] 2 puff PO Q6H #8.5 gm Ipratropium-Albuterol Nebulize [Duoneb 0.5 mg-3 mg/3 ml Soln] 3 ml INHALATION Q4HR PRN #90 ml PRN Reason: Shortness Of Breath methylPREDNISolone Dose Pack [Medrol Dose Pack] 4 mg PO DIRECTED #1 packet Is patient prescribed a controlled substance at d/c from ED?: No Referrals: None,Stated [Primary Care Provider] - 1-2 days
[2022-09-12 03:37] VITALS: BP 109/54; PULSE 96; TEMP 96.8
[2022-09-12] MEDS ORDERED: ALBUTEROL NEBULIZED 2.5 MG/3 ML INHALATION SCH (08:00)
[2022-09-12] MEDS ORDERED: ALBUTEROL NEB (CONC) 2.5 MG/0.5 ML INHALATION SCH (08:00)
== END 2022-09-12 03:37 | disposition home or self-care (01) ==
LOC: EC 23:41
DX: J45.901 Unspecified asthma with (acute) exacerbation (principal); F41.9 Anxiety disorder, unspecified; F32.A Depression, unspecified; F12.90 Cannabis use, unspecified, uncomplicated; Z88.8 Allergy status to other drugs, medicaments and biological substances; Z91.09 Other allergy status, other than to drugs and biological substances; Z91.041 Radiographic dye allergy status; Z79.51 Long term (current) use of inhaled steroids
CPT/HCPCS: 71046; 87502; 87635; 94640; 99285

== ENCOUNTER 2023-02-09 17:50 | Emergency (ER) | payer OTHER ==
[2023-02-09] MEDS ORDERED: IPRATROPIUM-ALBUTEROL 3 ML NEB INHALATION STA (18:16)
[2023-02-09] MEDS ORDERED: MAGNESIUM SULFATE-D5W PMX 1 GM in DEXTROSE/WATER 1 100ML.BAG IVPB ONE (18:17)
--- NOTE | 2023-02-09 18:24 | ED ---
SOB HPI - General Chief Complaint: Shortness of Breath Stated Complaint: ASTHMA ATTACK Time Seen by Provider: 02/09/23 18:00 Source: patient, RN notes reviewed Mode of arrival: ambulatory Limitations: no limitations - History of Present Illness Initial Comments: 42-year-old female history of asthma who states she was mopping floors at a relatives house when he started developing shortness of breath earlier this afternoon she took her usual inhalers without much relief. She presents here with complaints of shortness of breath some exertional dyspnea no overt chest pain fevers chills or sweats. MD Complaint: shortness of breath - Related Data Home Medications Medication Instructions Recorded Confirmed Albuterol Sulfate [Proair Hfa] 1 - 2 puff INHALATION RT-Q4H PRN 05/14/22 05/14/22 Ipratropium-Albuterol Nebulize 3 ml INHALATION RT-QID PRN 05/14/22 05/14/22 [Duoneb 0.5 mg-3 mg/3 ml Soln] Previous Rx's Medication Instructions Recorded Albuterol Sulfate [Proair Hfa] 1 - 2 puff INHALATION Q4HR PRN 05/14/22 #8.5 gm Beclomethasone Dipropionate [Qvar 1 puff INHALATION DAILY #10.6 gm 05/14/22 40 mcg Redihaler] Ipratropium-Albuterol Nebulize 3 ml INHALATION Q4HR #90 ml 05/14/22 [Duoneb 0.5 mg-3 mg/3 ml Soln] Montelukast [Singulair] 10 mg PO HS #30 tab 05/14/22 predniSONE [Deltasone] 20 mg PO BID #10 tab 05/14/22 Albuterol Sulfate [Albuterol 2 puff PO Q6H #8.5 gm 09/12/22 Sulfate Hfa] Ipratropium-Albuterol Nebulize 3 ml INHALATION Q4HR PRN #90 ml 09/12/22 [Duoneb 0.5 mg-3 mg/3 ml Soln] methylPREDNISolone Dose Pack 4 mg PO DIRECTED #1 packet 09/12/22 [Medrol Dose Pack] Ipratropium/Albuter 20-100Mcg 1 puff INHALATION QID #4 gm 02/09/23 [Combivent Respimat 20-100Mcg Inhaler] predniSONE [Deltasone] 20 mg PO BID #10 tab 02/09/23 Allergies Allergy/AdvReac Type Severity Reaction Status Date / Time ascorbic acid Allergy Anaphylaxis Verified 02/09/23 17:56 [From Emergen-C Vitamin D-Calcium] calcium combination no.27 Allergy Anaphylaxis Verified 02/09/23 17:56 [From [facility]gen-C Vitamin D-Calcium] cholecalciferol (vitamin D3) Allergy Anaphylaxis Verified 02/09/23 17:56 [From Emergen-C Vitamin D-Calcium] diphenhydramine HCl Allergy Dyspnea Verified 02/09/23 17:56 [From Benadryl] Iodinated Contrast Media Allergy Anaphylaxis Verified 02/09/23 17:56 [Iodinated Contrast Media - IV Dye] multivitamin with minerals Allergy Anaphylaxis Verified 02/09/23 17:56 [From Emergen-C Vitamin D-Calcium] methylprednisolone AdvReac shaky & Verified 02/09/23 17:56 [From Medrol] anxious Review of Systems ROS Statement: Those systems with pertinent positive or pertinent negative responses have been documented in the HPI. ROS Other: All systems not noted in ROS Statement are negative. Past Medical History Past Medical History: Asthma, COPD, Fibromyalgia Additional Past Medical History / Comment(s): DDD, tmj, History of Any Multi-Drug Resistant Organisms: None Reported Past Surgical History: Adenoidectomy, Cholecystectomy, Ear Surgery, Tonsillectomy Past Anesthesia/Blood Transfusion Reactions: Motion Sickness, Postoperative Nausea & Vomiting (PONV) Past Psychological History: Anxiety, Depression Smoking Status: Never smoker Past Alcohol Use History: None Reported Past Drug Use History: Marijuana General Exam - General Exam Comments Initial Comments: This is a well-developed well-nourished awake alert oriented 4 female Limitations: no limitations General appearance: alert, anxious, in distress Head exam: Present: atraumatic, normocephalic, normal inspection Eye exam: Present: normal appearance, PERRL, EOMI. Absent: scleral icterus, conjunctival injection, periorbital swelling ENT exam: Present: normal exam, mucous membranes moist Neck exam: Present: normal inspection, full ROM, other (Review by or bruits). Absent: tenderness, meningismus, lymphadenopathy Respiratory exam: Present: wheezes, accessory muscle use, decreased breath sounds. Absent: respiratory distress, rales, rhonchi, stridor Cardiovascular Exam: Present: normal rhythm, tachycardia, normal heart sounds. Absent: systolic murmur, diastolic murmur, rubs, gallop, clicks GI/Abdominal exam: Present: soft, normal bowel sounds. Absent: distended, tenderness, guarding, rebound, rigid Extremities exam: Present: normal inspection, full ROM, normal capillary refill. Absent: tenderness, pedal edema, joint swelling, calf tenderness Back exam: Present: normal inspection Neurological exam: Present: alert, oriented X3, CN II-XII intact Psychiatric exam: Present: normal affect, normal mood Skin exam: Present: warm, dry, intact, normal color. Absent: rash Course Vital Signs 02/09/23 02/09/23 02/09/23 17:54 18:29 18:54 Temperature 97.6 F Pulse Rate 106 H 81 85 Respiratory 26 H 16 Rate Blood Pressure 137/82 132/99 O2 Sat by Pulse 97 97 Oximetry 02/09/23 19:03 Temperature Pulse Rate 84 Respiratory Rate Blood Pressure O2 Sat by Pulse Oximetry Medical Decision Making - Medical Decision Making I did discuss findings the patient she is much improved this time after the initial treatment she'll be discharged home with a short course of oral prednisone which she has tolerated before and a Combivent inhaler. She'll follow-up with her doctor return when necessaryWas pt. sent in by a medical p rofeional or institution ([facility], SHI[employer] THERAPIST, urgent care, hospital, or penitentiary...) When possible be specific @ -[No] Did you speak to anyone other than the patient for history (EMS, parent, family, police, friend...)? What history was obtained from this source @ -[No] Did you review nursing and triage notes (agree or disagree)? Why? @ -[I reviewed and agree with nursing and triage notes] Were old charts reviewed (outside hosp., previous admission, EMS record, old EKG, old radiological studies, urgent care reports/EKG's, penitentiary records)? Report findings @ -[No old charts were reviewed] Differential Diagnosis (chest pain, altered mental status, abdominal pain women, abdominal pain men, vaginal bleeding, weakness, fever, dyspnea, syncope, headache, dizziness, GI bleed, back pain, seizure, CVA, palpatations, mental health, musculoskeletal)? @ -[Dyspnea] EKG interpreted by me (3pts min.). @ -[As above] X-rays interpreted by me (1pt min.). @ -[As above] CT interpreted by me (1pt min.). @ -[None done] U/S interpreted by me (1pt. min.). @ -[None done] What testing was considered but not performed or refused? (CT, X-rays, U/S, labs)? Why? @ -[None] What meds were considered but not given or refused? Why? @ -[None] Did you discuss the management of the patient with other professionals (professionals i.e. , PA, SHIATSU THERAPIST, lab, RT, psych nurse, social media job titles, intellectual property lawyer, teacher, special police officer, case planner)? Give summary @ -[No] Was smoking cessation discussed for >3mins.? @ -[No] Was critical care preformed (if so, how long)? @ -[No] Were there social determinants of health that impacted care today? How? (Homelessness, low income, unemployed, alcoholism, drug addiction, transportation, low edu. Level, literacy, decrease access to med. care, fpc, rehab)? @ -[No] Was there de-escalation of care discussed even if they declined (Discuss DNR or withdrawal of care, Hospice)? DNR status @ -[No] What co-morbidities impacted this encounter? (DM, HTN, Smoking, COPD, CAD, Cancer, CVA, ARF, Chemo, Hep., AIDS, mental health diagnosis, sleep apnea, morbid obesity)? @ -[Asthma] Was patient admitted / discharged? Hospital course, mention meds given and route, prescriptions, significant lab abnormalities, going to OR and other pertinent info. @ -[hospital course] patient was discharged home with outpatient treatment of prednisone and a new inhaler. She will follow-up with her doctor and return as needed Undiagnosed new problem with uncertain prognosis? @ -[No] Drug Therapy requiring intensive monitoring for toxicity (Heparin, Nitro, Insulin, Cardizem)? @ -[No] Were any procedures done? @ -[No] Diagnosis/symptom? @ -[default] Acute, or Chronic, or Acute on Chronic? @ -[Acute on chronic] Uncomplicated (without systemic symptoms) or Complicated (systemic symptoms)? @ -[default] Side effects of treatment? @ -[No] Exacerbation, Progression, or Severe Exacerbation? @ -[Exacerbation] Poses a threat to life or bodily function? How? (Chest pain, USA, OR, pneumonia, PE, COPD, DKA, ARF, appy, cholecystitis, CVA, Diverticulitis, Homicidal, Suicidal, threat to staff... and all critical care pts) @ -[No] - Lab Data Result diagrams: 02/09/23 18:13 02/09/23 18:13 Lab Results 02/09/23 02/09/23 02/09/23 Range/Units 18:13 18:13 18:13 WBC 7.4 (3.8-10.6) k/uL RBC 4.28 (3.80-5.40) m/uL Hgb 14.2 (11.4-16.0) gm/dL Hct 40.2 (34.0-46.0) % MCV 93.8 (80.0-100.0) fL MCH 33.1 (25.0-35.0) pg MCHC 35.3 (31.0-37.0) g/dL RDW 13.0 (11.5-15.5) % Plt Count 215 (150-450) k/uL MPV 8.5 Neutrophils % 66 % Lymphocytes % 21 % Monocytes % 4 % Eosinophils % 8 % Basophils % 0 % Neutrophils # 4.9 (1.3-7.7) k/uL Lymphocytes # 1.6 (1.0-4.8) k/uL Monocytes # 0.3 (0-1.0) k/uL Eosinophils # 0.6 (0-0.7) k/uL Basophils # 0.0 (0-0.2) k/uL Hyperchromasia Slight PT 10.5 (9.0-12.0) sec INR 1.0 (<1.2) APTT 24.7 (22.0-30.0) sec D-Dimer 0.28 (<0.60) mg/L FEU Sodium 139 (137-145) mmol/L Potassium 3.8 (3.5-5.1) mmol/L Chloride 109 H (98-107) mmol/L Carbon Dioxide 21 L (22-30) mmol/L Anion Gap 9 mmol/L BUN 12 (7-17) mg/dL Creatinine 0.69 (0.52-1.04) mg/dL Est GFR (CKD-EPI)AfAm >90 (>60 ml/min/1.73 sqM) Est GFR (CKD-EPI)NonAf >90 (>60 ml/min/1.73 sqM) Glucose 103 H (74-99) mg/dL Plasma Lactic Acid Kike (0.7-2.0) mmol/L Calcium 8.9 (8.4-10.2) mg/dL Magnesium 2.0 (1.6-2.3) mg/dL Total Bilirubin 1.2 (0.2-1.3) mg/dL AST 22 (14-36) U/L ALT 19 (4-34) U/L Alkaline Phosphatase 98 (38-126) U/L Troponin I (0.000-0.034) ng/mL NT-Pro-B Natriuret Pep pg/mL Total Protein 6.8 (6.3-8.2) g/dL Albumin 4.2 (3.5-5.0) g/dL 02/09/23 02/09/23 02/09/23 Range/Units 18:13 18:13 18:13 WBC (3.8-10.6) k/uL RBC (3.80-5.40) m/uL Hgb (11.4-16.0) gm/dL Hct (34.0-46.0) % MCV (80.0-100.0) fL MCH (25.0-35.0) pg MCHC (31.0-37.0) g/dL RDW (11.5-15.5) % Plt Count (150-450) k/uL MPV Neutrophils % % Lymphocytes % % Monocytes % % Eosinophils % % Basophils % % Neutrophils # (1.3-7.7) k/uL Lymphocytes # (1.0-4.8) k/uL Monocytes # (0-1.0) k/uL Eosinophils # (0-0.7) k/uL Basophils # (0-0.2) k/uL Hyperchromasia PT (9.0-12.0) sec INR (<1.2) APTT (22.0-30.0) sec D-Dimer (<0.60) mg/L FEU Sodium (137-145) mmol/L Potassium (3.5-5.1) mmol/L Chloride (98-107) mmol/L Carbon Dioxide (22-30) mmol/L Anion Gap mmol/L BUN (7-17) mg/dL Creatinine (0.52-1.04) mg/dL Est GFR (CKD-EPI)AfAm (>60 ml/min/1.73 sqM) Est GFR (CKD-EPI)NonAf (>60 ml/min/1.73 sqM) Glucose (74-99) mg/dL Plasma Lactic Acid Kike 1.3 (0.7-2.0) mmol/L Calcium (8.4-10.2) mg/dL Magnesium (1.6-2.3) mg/dL Total Bilirubin (0.2-1.3) mg/dL AST (14-36) U/L ALT (4-34) U/L Alkaline Phosphatase (38-126) U/L Troponin I <0.012 (0.000-0.034) ng/mL NT-Pro-B Natriuret Pep 38 pg/mL Total Protein (6.3-8.2) g/dL Albumin (3.5-5.0) g/dL - EKG Data -: EKG Interpreted by Me EKG Comments: EKG interpreted by me sinus rhythm with sinus arrhythmia rate 86 ID interval 127 QRS duration 78 QT since QTC 332/[address]-T wave changes - Radiology Data Interpreted by me: Imaging interpreted by me no definitive evidence of pathology some evidence of pleural reaction however. Disposition Clinical Impression: Asthma exacerbation Disposition: HOME SELF-CARE Condition: Good Instructions (If sedation given, give patient instructions): Asthma (ED) Prescriptions: Ipratropium/Albuter 20-100Mcg [Combivent Respimat 20-100Mcg Inhaler] 1 puff INHALATION QID #4 gm predniSONE [Deltasone] 20 mg PO BID #10 tab Is patient prescribed a controlled substance at d/c from ED?: No Referrals: None,Stated [Primary Care Provider] - 1-2 days Decision Date: 02/09/23 Decision Time: 20:11
[2023-02-09 18:31] LABS: Basophils % (A) 0 %; Eosinophils # (A) 0.6 k/uL (0-0.7); Eosinophils % (A) 8 %; HCT 40.2 % (34.0-46.0); HGB 14.2 gm/dL (11.4-16.0); Hyperchromasia Slight; Lymphocytes # (A) 1.6 k/uL (1.0-4.8); Lymphocytes % (A) 21 %; MCH 33.1 pg (25.0-35.0); MCHC 35.3 g/dL (31.0-37.0); MCV 93.8 fL (80.0-100.0); Mean Platelet Volume 8.5; Monocytes # (A) 0.3 k/uL (0-1.0); Monocytes % (A) 4 %; Neutrophils # (A) 4.9 k/uL (1.3-7.7); Neutrophils % (A) 66 %; Platelet Count 215 k/uL (150-450); RBC 4.28 m/uL (3.80-5.40); WBC 7.4 k/uL (3.8-10.6)
[2023-02-09] MEDS ORDERED: methylPREDNISolone SOD SUCCI 125 MG/2 ML VIAL IV STA (18:32)
[2023-02-09 18:34] VITALS: RESP 16
--- NOTE | 2023-02-09 18:44 | XR ---
EXAMINATION TYPE: XR chest 2V DATE OF EXAM: 02/09/2023 COMPARISON: 09/12/2022 HISTORY: Short of breath TECHNIQUE: 2 views FINDINGS: There is some blunting of the lateral costophrenic angles. Heart and mediastinum are normal . There are no hilar masses. The bony thorax is intact. There are chest leads. IMPRESSION: Mild pleural reaction at the lateral lung bases without much change. No definite pleural fluid. Normal heart.
[2023-02-09 18:48] LABS: ALT 19 U/L (4-34); AST 22 U/L (14-36); African American GFR (CKD) >90 (>60 ml/min/1.73 sqM); Albumin 4.2 g/dL (3.5-5.0); Alkaline Phosphatase 98 U/L (38-126); Anion Gap 9 mmol/L; Blood Urea Nitrogen 12 mg/dL (7-17); Calcium 8.9 mg/dL (8.4-10.2); Carbon Dioxide 21 mmol/L (22-30); Chloride 109 mmol/L (98-107); Glucose 103 mg/dL (74-99); Non-African American GFR(CKD) >90 (>60 ml/min/1.73 sqM); Potassium 3.8 mmol/L (3.5-5.1); Sodium 139 mmol/L (137-145); Total Bilirubin 1.2 mg/dL (0.2-1.3); Total Protein 6.8 g/dL (6.3-8.2)
[2023-02-09 19:04] LABS: Partial Thromboplastin Time 24.7 sec (22.0-30.0); Prothrombin Time 10.5 sec (9.0-12.0)
[2023-02-09] MEDS ORDERED: predniSONE 50 MG TAB PO STA (20:12)
[2023-02-09 20:33] VITALS: BP 134/99; PULSE 70; TEMP 97.7
== END 2023-02-09 20:33 | disposition home or self-care (01) ==
LOC: EC 17:50
DX: J45.901 Unspecified asthma with (acute) exacerbation (principal); F41.9 Anxiety disorder, unspecified; F32.A Depression, unspecified; F12.90 Cannabis use, unspecified, uncomplicated; Z79.899 Other long term (current) drug therapy; Z88.6 Allergy status to analgesic agent; Z88.8 Allergy status to other drugs, medicaments and biological substances
CPT/HCPCS: 36415; 94640; 93005; 85379; 83880; 80053; 83605; 83735; 84484; 85025; 85610; 85730; 71046; 99285; 96365; 96375; J2930; J3475; J7512

== ENCOUNTER 2023-04-28 05:33 | Emergency (ER) | payer OTHER ==
[2023-04-28] MEDS ORDERED: ALBUTEROL NEBULIZED (CONC) 5 MG, SODIUM CHLORIDE 0.9% NEBULIZ 3 ML INHALATION STA ×2 (06:09)
--- NOTE | 2023-04-28 06:43 | ED ---
SOB HPI - General Chief Complaint: Shortness of Breath Stated Complaint: Asthma Attack, Difficulty Breathing Time Seen by Provider: 04/28/23 06:43 Source: patient Mode of arrival: ambulatory Limitations: no limitations - History of Present Illness Initial Comments: Patient is a pleasant 43-year-old female presenting to the emergency room with complaints of worsening shortness breath ongoing for the last 2 days and audible wheeze. She has a history of asthma but states that she was taken off of all of her inhalers though she does have some limited albuterol solution at home for her nebulizer. She states that typically around this time a year she starts to have an asthma exacerbation due to allergens. She states that she attempted taking antihistamines without any improvement in her symptoms. She also utilize a nebulized treatment without any improvement in her wheeze or shortness of breath. Upon evaluation patient's wheezes had resolved due to continuous nebulized treatment administered by respiratory which was ordered by triaging provider. She reports improvement in her shortness of breath after respiratory treatment. She denies any chest pain, abdominal pain, nausea, vomiting, headache, dizziness, fevers or chills. She now denies any known exposure to any viral paralysis. In addition to her known asthma history she has a past medical history significant for COPD, fibromyalgia, degenerative disc disease and TMJ. - Related Data Home Medications Medication Instructions Recorded Confirmed Albuterol Sulfate [Proair Hfa] 1 - 2 puff INHALATION RT-Q4H PRN 05/14/22 05/14/22 Ipratropium-Albuterol Nebulize 3 ml INHALATION RT-QID PRN 05/14/22 05/14/22 [Duoneb 0.5 mg-3 mg/3 ml Soln] Previous Rx's Medication Instructions Recorded Albuterol Sulfate [Proair Hfa] 1 - 2 puff INHALATION Q4HR PRN 05/14/22 #8.5 gm Beclomethasone Dipropionate [Qvar 1 puff INHALATION DAILY #10.6 gm 05/14/22 40 mcg Redihaler] Ipratropium-Albuterol Nebulize 3 ml INHALATION Q4HR #90 ml 05/14/22 [Duoneb 0.5 mg-3 mg/3 ml Soln] Montelukast [Singulair] 10 mg PO HS #30 tab 06/27/22 predniSONE [Deltasone] 20 mg PO BID #10 tab 05/14/22 Albuterol Sulfate [Albuterol 2 puff PO Q6H #8.5 gm 09/12/22 Sulfate Hfa] Ipratropium-Albuterol Nebulize 3 ml INHALATION Q4HR PRN #90 ml 09/12/22 [Duoneb 0.5 mg-3 mg/3 ml Soln] methylPREDNISolone Dose Pack 4 mg PO DIRECTED #1 packet 09/12/22 [Medrol Dose Pack] Ipratropium/Albuter 20-100Mcg 1 puff INHALATION QID #4 gm 02/09/23 [Combivent Respimat 20-100Mcg Inhaler] predniSONE [Deltasone] 20 mg PO BID #10 tab 02/09/23 Albuterol Inhaler [Ventolin Hfa 1 - 2 puff INHALATION Q6H PRN 30 04/28/23 Inhaler] Days #1 each Albuterol Nebulized [Ventolin 3 ml INHALATION Q6H 6 Days #75 ml 04/28/23 Nebulized (Accuneb)] Montelukast [Singulair] 10 mg PO HS 30 Days #30 tab 04/28/23 methylPREDNISolone Dose Pack 4 mg PO DIRECTED #21 tab 04/28/23 [Medrol Dose Pack] Allergies Allergy/AdvReac Type Severity Reaction Status Date / Time ascorbic acid Allergy Anaphylaxis Verified 04/28/23 05:49 [facility] calcium combination no.27 Allergy Anaphylaxis Verified 04/28/23 05:49 [From [facility] Vitamin D-Calcium] cholecalciferol (vitamin D3) Allergy Anaphylaxis Verified 04/28/23 05:49 [From [facility]-C Vitamin D-Calcium] diphenhydramine HCl Allergy Dyspnea Verified 04/28/23 05:49 [From Benadryl] Iodinated Contrast Media Allergy Anaphylaxis Verified 04/28/23 05:49 [Iodinated Contrast Media - IV Dye] multivitamin with minerals Allergy Anaphylaxis Verified 04/28/23 05:49 [From [facility]-C Vitamin D-Calcium] methylprednisolone AdvReac shaky & Verified 04/28/23 05:49 [From Medrol] anxious Review of Systems ROS Statement: Those systems with pertinent positive or pertinent negative responses have been documented in the HPI. ROS Other: All systems not noted in ROS Statement are negative. Past Medical History Past Medical History: Asthma, COPD, Fibromyalgia Additional Past Medical History / Comment(s): DDD, tmj, History of Any Multi-Drug Resistant Organisms: None Reported Past Surgical History: Adenoidectomy, Cholecystectomy, Ear Surgery, Ton sillectomy Past Anesthesia/Blood Transfusion Reactions: Motion Sickness, Postoperative Nausea & Vomiting (PONV) Past Psychological History: Anxiety, Depression Smoking Status: Never smoker Past Alcohol Use History: None Reported Past Drug Use History: Marijuana General Exam - General Exam Comments Initial Comments: GENERAL: No acute distress, well developed, well nourished. HEENT: Normocephalic, atraumatic. Pupils equal, round, reactive to light. Moist mucous membranes. LUNGS: No respiratory distress. Clear to auscultation, no adventitious sounds, no use of accessory muscles. Wheeze documented by respiratory prior to nebulized treatment no wheeze present on providers exam. HEART: Regular rate and rhythm without murmur, rub, or gallop. ABDOMEN: Normal bowel sounds. Soft, non-tender, non-distended. BACK: Normal inspection. EXTREMITIES: No edema. No tenderness. Moves all extremities. NEUROLOGIC: Alert & oriented x 3. CN II-XII grossly intact. PSYCHIATRIC: Normal affect and behavior. DERMATOLOGIC: Skin intact, without rashes or lesions noted. Limitations: no limitations Course Vital Signs 04/28/23 04/28/23 04/28/23 05:49 06:30 06:53 Temperature 98 F Pulse Rate 109 H 76 86 Respiratory 18 Rate Blood Pressure 142/97 O2 Sat by Pulse 97 Oximetry 04/28/23 04/28/23 07:18 08:59 Temperature 97.9 F Pulse Rate 88 89 Respiratory 18 20 Rate Blood Pressure 143/85 121/80 O2 Sat by Pulse 100 99 Oximetry Medical Decision Making - Medical Decision Making Was pt. sent in by a medical professional or institution (, PA, HAND MIXER, urgent care, hospital, or senior living...) When possible be specific @ -No Did you speak to anyone other than the patient for history (EMS, parent, family, police, friend...)? What history was obtained from this source @ -No Did you review nursing and triage notes (agree or disagree)? Why? @ -I reviewed and agree with nursing and triage notes Were old charts reviewed (outside hosp., previous admission, EMS record, old EKG, old radiological studies, urgent care reports/EKG's, senior living records)? Report findings @ -No old charts were reviewed Differential Diagnosis (chest pain, altered mental status, abdominal pain women, abdominal pain men, vaginal bleeding, weakness, fever, dyspnea, syncope, headache, dizziness, GI bleed, back pain, seizure, CVA, palpatations, mental health, musculoskeletal)? @ -Differential Dyspnea: Coronary syndrome, arrhythmia, tamponade, asthma, COPD, pulmonary embolism, p neumonia, pneumothorax, pulmonary effusion, anaphylaxis, diabetic ketoacidosis, flailed chest, pulmonary contusion, diaphragmatic rupture, anemia, neuromuscular, this is not meant to be an all-inclusive list. EKG interpreted by me (3pts min.). @ -Sinus rhythm with sinus arrhythmia, ventricular rate 79 bpm, WA interval 130 ms, QRS duration 89 ms, QT/QTC 350/384 ms, PRT axes 71, 56, 39 X-rays interpreted by me (1pt min.). @ -Chest x-ray two-view hyperinflation consistent with asthma or underlying COPD no pleural effusion, consolidation or cardiomegaly. CT interpreted by me (1pt min.). @ -None done U/S interpreted by me (1pt. min.). @ -None done What testing was considered but not performed or refused? (CT, X-rays, U/S, l abs)? Why? @ -None What meds were considered but not given or refused? Why? @ -IV and oral steroids considered but deferred due to improvement of wheeze and difficulty in breathing with nebulized treatment. Did you discuss the management of the patient with other professionals (professionals i.e. , PA, HAND MIXER, lab, RT, psych nurse, outreach and education social worker, public affairs specialist, teacher, interface control officer, upper caser)? Give summary @ -No Was smoking cessation discussed for >3mins.? @ -No Was critical care preformed (if so, how long)? @ -No Were there social determinants of health that impacted care today? How? (Homelessness, low income, unemployed, alcoholism, drug addiction, transportation, low edu. Level, literacy, decrease access to med. care, chcf, rehab)? @ -No Was there de-escalation of care discussed even if they declined (Discuss DNR or withdrawal of care, Hospice)? DNR status @ -No What co-morbidities impacted this encounter? (DM, HTN, Smoking, COPD, CAD, Cancer, CVA, ARF, Chemo, Hep., AIDS, mental health diagnosis, sleep apnea, morbid obesity)? @ -Asthma Was patient admitted / discharged? Hospital course, mention meds given and route, prescriptions, significant lab abnormalities, going to OR and other pertinent info. @ -43-year-old female presenting to the emergency room with complaints of worsening shortness breath ongoing for the last 2 days and audible wheeze. Status post continuous nebulized treatment by respiratory with resolution of wheeze and improvement in shortness of breath. Will proceed with dyspnea workup with chest x-ray, EKG, CBC, CMP, coags, d-dimer, troponin and viral testing for influenza, RSV and COVID. EKG shows sinus rhythm with sinus arrhythmia, chest x-ray demonstrates hyperinflation consistent with asthma and or underlying emphysema no evidence of infiltrates. CBC with low platelet count at 147 otherwise no abnormalities. Coags negative. D-dimer normal 0.41 CMP reveals low calcium with correlating low protein remaining electrolytes normal. Troponin negative, renal function and liver function normal. Viral swabbing for Covid influenza and RSV all negative. All above findings discussed with patient. Discussed initiation of oral steroids with a Medrol Dosepak, resumption of her Singulair refill of her albuterol for nebulizer treatments along with refill of her nebulized inhaler. Signs and symptoms requiring return to the emergency room discussed. Questions and concerns answered. Will discharge home in stable condition on Medrol Dosepak along with albuterol and Singulair refill for acute except my exacerbation. Undiagnosed new problem with uncertain prognosis? @ -No Drug Therapy requiring intensive monitoring for toxicity (Heparin, Nitro, Insulin, Cardizem)? @ -No Were any procedures done? @ -No Diagnosis/symptom? @ -Asthma with acute exacerbation Acute, or Chronic, or Acute on Chronic? @ -Acute on chronic Uncomplicated (without systemic symptoms) or Complicated (systemic symptoms)? @ -Uncomplicated Side effects of treatment? @ -No Exacerbation, Progression, or Severe Exacerbation? @ -No Poses a threat to life or bodily function? How? (Chest pain, [place], [place], pneumonia, PE, COPD, DKA, ARF, appy, cholecystitis, CVA, Diverticulitis, Homicidal, Suicidal, threat to staff... and all critical care pts) @ -No Case discussed with Dr. Moses. - Lab Data Result diagrams: 04/28/23 07:30 04/28/23 07:30 Lab Results 04/28/23 04/28/23 04/28/23 Range/Units 07:30 07:30 07:30 WBC 4.6 (3.8-10.6) k/uL RBC 4.05 (3.80-5.40) m/uL Hgb 13.3 (11.4-16.0) gm/dL Hct 39.6 (34.0-46.0) % MCV 97.9 (80.0-100.0) fL MCH 32.9 (25.0-35.0) pg MCHC 33.6 (31.0-37.0) g/dL RDW 13.1 (11.5-15.5) % Plt Count 147 L (150-450) k/uL MPV 8.7 Neutrophils % 61 % Lymphocytes % 25 % Monocytes % 4 % Eosinophils % 9 % Basophils % 0 % Neutrophils # 2.8 (1.3-7.7) k/uL Lymphocytes # 1.2 (1.0-4.8) k/uL Monocytes # 0.2 (0-1.0) k/uL Eosinophils # 0.4 (0-0.7) k/uL Basophils # 0.0 (0-0.2) k/uL PT 10.1 (9.0-12.0) sec INR 0.9 (<1.2) APTT 24.3 (22.0-30.0) sec D-Dimer 0.41 (<0.60) mg/L FEU Sodium 139 (137-145) mmol/L Potassium 3.5 (3.5-5.1) mmol/L Chloride 107 (98-107) mmol/L Carbon Dioxide 26 (22-30) mmol/L Anion Gap 6 mmol/L BUN 14 (7-17) mg/dL Creatinine 0.69 (0.52-1.04) mg/dL Est GFR (CKD-EPI)AfAm >90 (>60 ml/min/1.73 sqM) Est GFR (CKD-EPI)NonAf >90 (>60 ml/min/1.73 sqM) Glucose 97 (74-99) mg/dL Plasma Lactic Acid Kike (0.7-2.0) mmol/L Calcium 8.0 L (8.4-10.2) mg/dL Total Bilirubin 0.5 (0.2-1.3) mg/dL AST 18 (14-36) U/L ALT 14 (4-34) U/L Alkaline Phosphatase 100 (38-126) U/L Troponin I (0.000-0.034) ng/mL Total Protein 6.0 L (6.3-8.2) g/dL Albumin 3.6 (3.5-5.0) g/dL Influenza Type A (PCR) (Not Detectd) Influenza Type B (PCR) (Not Detectd) RSV (PCR) (Not Detectd) SARS-CoV-2 (PCR) (Not Detectd) 04/28/23 04/28/23 04/28/23 Range/Units 07:30 07:30 07:30 WBC (3.8-10.6) k/uL RBC (3.80-5.40) m/uL Hgb (11.4-16.0) gm/dL Hct (34.0-46.0) % MCV (80.0-100.0) fL MCH (25.0-35.0) pg MCHC (31.0-37.0) g/dL RDW (11.5-15.5) % Plt Count (150-450) k/uL MPV Neutrophils % % Lymphocytes % % Monocytes % % Eosinophils % % Basophils % % Neutrophils # (1.3-7.7) k/uL Lymphocytes # (1.0-4.8) k/uL Monocytes # (0-1.0) k/uL Eosinophils # (0-0.7) k/uL Basophils # (0-0.2) k/uL PT (9.0-12.0) sec INR (<1.2) APTT (22.0-30.0) sec D-Dimer (<0.60) mg/L FEU Sodium (137-145) mmol/L Potassium (3.5-5.1) mmol/L Chloride (98-107) mmol/L Carbon Dioxide (22-30) mmol/L Anion Gap mmol/L BUN (7-17) mg/dL Creatinine (0.52-1.04) mg/dL Est GFR (CKD-EPI)AfAm (>60 ml/min/1.73 sqM) Est GFR (CKD-EPI)NonAf (>60 ml/min/1.73 sqM) Glucose (74-99) mg/dL Plasma Lactic Acid Kike 1.0 (0.7-2.0) mmol/L Calcium (8.4-10.2) mg/dL Total Bilirubin (0.2-1.3) mg/dL AST (14-36) U/L ALT (4-34) U/L Alkaline Phosphatase (38-126) U/L Troponin I <0.012 (0.000-0.034) ng/mL Total Protein (6.3-8.2) g/dL Albumin (3.5-5.0) g/dL Influenza Type A (PCR) Not Detected (Not Detectd) Influenza Type B (PCR) Not Detected (Not Detectd) RSV (PCR) Not Detected (Not Detectd) SARS-CoV-2 (PCR) Not Detected (Not Detectd) Disposition Clinical Impression: Asthma attack, Asthma with acute exacerbation Disposition: HOME SELF-CARE Condition: Stable Instructions (If sedation given, give patient instructions): Asthma (ED) Additional Instructions: Please take Medrol Dosepak as prescribed. Utilize albuterol nebulized treatments or albuterol inhaler as needed. Take Singulair daily. Avoid allergens when possible. Please follow-up with your primary care provider. Please return to the Emergency Department if symptoms worsen or any other concerns. Prescriptions: methylPREDNISolone Dose Pack [Medrol Dose Pack] 4 mg PO DIRECTED #21 tab Montelukast [Singulair] 10 mg PO HS 30 Days #30 tab Albuterol Inhaler [Ventolin Hfa Inhaler] 1 - 2 puff INHALATION Q6H PRN 30 Days #1 each PRN Reason: Shortness Of Breath Albuterol Nebulized [Ventolin Nebulized (Accuneb)] 3 ml INHALATION Q6H 6 Days #75 ml Is patient prescribed a controlled substance at d/c from ED?: No Referrals: None,Stated [Primary Care Provider] - 1-2 days Time of Disposition: 08:42
[2023-04-28 08:06] LABS: ALT 14 U/L (4-34); AST 18 U/L (14-36); African American GFR (CKD) >90 (>60 ml/min/1.73 sqM); Albumin 3.6 g/dL (3.5-5.0); Alkaline Phosphatase 100 U/L (38-126); Anion Gap 6 mmol/L; Blood Urea Nitrogen 14 mg/dL (7-17); Carbon Dioxide 26 mmol/L (22-30); Chloride 107 mmol/L (98-107); Glucose 97 mg/dL (74-99); Non-African American GFR(CKD) >90 (>60 ml/min/1.73 sqM); Potassium 3.5 mmol/L (3.5-5.1); Sodium 139 mmol/L (137-145); Total Bilirubin 0.5 mg/dL (0.2-1.3)
--- NOTE | 2023-04-28 08:15 | XR ---
EXAMINATION TYPE: XR chest 2V DATE OF EXAM: 04/28/2023 COMPARISON: 02/09/2023 HISTORY: 43 year-old female shortness of breath, difficulty breathing TECHNIQUE: PA and lateral views FINDINGS: The cardiomediastinal silhouette, aorta, and pulmonary vasculature are within normal limits. Hyperinf lation. Lungs and pleural spaces are clear. IMPRESSION: Hyperinflation may relate to a depth of inspiration, asthma, or underlying emphysema. Otherwise, no a cute cardiopulmonary process.
[2023-04-28 08:16] LABS: INR 0.9 (<1.2); Partial Thromboplastin Time 24.3 sec (22.0-30.0); Prothrombin Time 10.1 sec (9.0-12.0)
[2023-04-28 08:27] LABS: Basophils % (A) 0 %; Eosinophils # (A) 0.4 k/uL (0-0.7); Eosinophils % (A) 9 %; HCT 39.6 % (34.0-46.0); HGB 13.3 gm/dL (11.4-16.0); Lymphocytes # (A) 1.2 k/uL (1.0-4.8); Lymphocytes % (A) 25 %; MCH 32.9 pg (25.0-35.0); MCHC 33.6 g/dL (31.0-37.0); MCV 97.9 fL (80.0-100.0); Mean Platelet Volume 8.7; Monocytes # (A) 0.2 k/uL (0-1.0); Monocytes % (A) 4 %; Neutrophils # (A) 2.8 k/uL (1.3-7.7); Neutrophils % (A) 61 %; Platelet Count 147 k/uL (150-450); RBC 4.05 m/uL (3.80-5.40); RDW 13.1 % (11.5-15.5); WBC 4.6 k/uL (3.8-10.6)
[2023-04-28 09:02] VITALS: BP 121/80; PULSE 89; RESP 20; TEMP 97.9
== END 2023-04-28 09:07 | disposition home or self-care (01) ==
LOC: EC 05:33
DX: J45.901 Unspecified asthma with (acute) exacerbation (principal); J44.9 Chronic obstructive pulmonary disease, unspecified; F12.90 Cannabis use, unspecified, uncomplicated; Z20.822 Contact with and (suspected) exposure to COVID-19; Z86.59 Personal history of other mental and behavioral disorders; Z88.8 Allergy status to other drugs, medicaments and biological substances; Z90.49 Acquired absence of other specified parts of digestive tract
CPT/HCPCS: 36415; 71046; 80053; 83605; 84484; 85025; 85379; 85610; 85730; 87040; 87636; 93005; 94640; 99285

== ENCOUNTER 2023-07-02 00:14 | Emergency (ER) | payer OTHER ==
[2023-07-02 00:26] VITALS: TEMP 98.2
[2023-07-02] MEDS ORDERED: LIDOCAINE 1% INJ 10MG/ML (20 ML MDV) SQ ONE (01:26)
--- NOTE | 2023-07-02 01:59 | ED ---
Wound/Laceration HPI - General Chief Complaint: Wound/Laceration Stated Complaint: Ear injury Time Seen by Provider: 07/02/23 01:24 Source: patient Mode of arrival: ambulatory Limitations: no limitations - History of Present Illness Initial Comments: 43-year-old female presenting with chief complaint of laceration to the left ear. Patient states that when she was taking her shirt off her earring was caught and was ripped out of her ear. There is a small through and through laceration to the earlobe. Bleeding is well-controlled at this time. Patient's tetanus is up-to-date. - Related Data Home Medications Medication Instructions Recorded Confirmed Albuterol Sulfate [Proair Hfa] 1 - 2 puff INHALATION RT-Q4H PRN 05/14/22 05/14/22 Ipratropium-Albuterol Nebulize 3 ml INHALATION RT-QID PRN 05/14/22 05/14/22 [Duoneb 0.5 mg-3 mg/3 ml Soln] Previous Rx's Medication Instructions Recorded Albuterol Sulfate [Proair Hfa] 1 - 2 puff INHALATION Q4HR PRN 05/14/22 #8.5 gm Beclomethasone Dipropionate [Qvar 1 puff INHALATION DAILY #10.6 gm 05/14/22 40 mcg Redihaler] Ipratropium-Albuterol Nebulize 3 ml INHALATION Q4HR #90 ml 05/14/22 [Duoneb 0.5 mg-3 mg/3 ml Soln] Montelukast [Singulair] 10 mg PO HS #30 tab 05/14/22 predniSONE [Deltasone] 20 mg PO BID #10 tab 05/14/22 Albuterol Sulfate [Albuterol 2 puff PO Q6H #8.5 gm 09/12/22 Sulfate Hfa] Ipratropium-Albuterol Nebulize 3 ml INHALATION Q4HR PRN #90 ml 09/12/22 [Duoneb 0.5 mg-3 mg/3 ml Soln] methylPREDNISolone Dose Pack 4 mg PO DIRECTED #1 packet 09/12/22 [Medrol Dose Pack] Ipratropium/Albuter 20-100Mcg 1 puff INHALATION QID #4 gm 02/09/23 [Combivent Respimat 20-100Mcg Inhaler] predniSONE [Deltasone] 20 mg PO BID #10 tab 02/09/23 Albuterol Inhaler [Ventolin Hfa 1 - 2 puff INHALATION Q6H PRN 30 04/28/23 Inhaler] Days #1 each Albuterol Nebulized [Ventolin 3 ml INHALATION Q6H 6 Days #75 ml 04/28/23 Nebulized (Accuneb)] Montelukast [Singulair] 10 mg PO HS 30 Days #30 tab 04/28/23 methylPREDNISolone Dose Pack 4 mg PO DIRECTED #21 tab 04/28/23 [Medrol Dose Pack] Allergies Allergy/AdvReac Type Severity Reaction Status Date / Time ascorbic acid Allergy Anaphylaxis Verified 04/28/23 05:49 [From [facility] Vitamin D-Calcium] calcium combination no.27 Allergy Anaphylaxis Verified 04/28/23 05:49 [From [facility] Vitamin D-Calcium] cholecalciferol (vitamin D3) Allergy Anaphylaxis Verified 04/28/23 05:49 [From [facility] Vitamin D-Calcium] diphenhydramine HCl Allergy Dyspnea Verified 04/28/23 05:49 [From Benadryl] Iodinated Contrast Media Allergy Anaphylaxis Verified 04/28/23 05:49 [Iodinated Contrast Media - IV Dye] multivitamin with minerals Allergy Anaphylaxis Verified 04/28/23 05:49 [From [facility] Vitamin D-Calcium] methylprednisolone AdvReac shaky & Verified 04/28/23 05:49 [From Medrol] anxious Review of Systems ROS Statement: Those systems with pertinent positive or pertinent negative responses have been documented in the HPI. ROS Other: All systems not noted in ROS Statement are negative. Past Medical History Past Medical History: Asthma, COPD, Fibromyalgia Additional Past Medical History / Comment(s): DDD, tmj, History of Any Multi-Drug Resistant Organisms: None Reported Past Surgical History: Adenoidectomy, Cholecystectomy, Ear Surgery, Tonsillectomy Past Anesthesia/Blood Transfusion Reactions: Motion Sickness, Postoperative Nausea & Vomiting (PONV) Past Psychological History: Anxiety, Depression Smoking Status: Never smoker Past Alcohol Use History: None Reported Past Drug Use History: Marijuana General Exam Limitations: no limitations General appearance: alert, in no apparent distress Head exam: Present: atraumatic, normocephalic, normal inspection Eye exam: Present: normal appearance, EOMI Expanded Ear exam: Present: auricular trauma (Small laceration to the earlobe, through and through) Neck exam: Present: normal inspection, full ROM Respiratory exam: Absent: respiratory distress Neurological exam: Present: alert, oriented X3, CN II-XII intact Psychiatric exam: Present: normal affect, normal mood Expanded Type of lesion: Present: laceration (1cm, L ear lobe) Course Vital Signs 07/02/23 00:21 Temperature 98.2 F Pulse Rate 112 H Respiratory 18 Rate O2 Sat by Pulse 98 Oximetry Procedures - Laceration Laceration #1 Consent Obtained: verbal consent Indication: laceration Site: face (L ear lobe) Description: linear Depth: [id number] Anesthetic Used: lidocaine 1%, without epi Pre-repair: wound explored Type of Sutures: nylon Size of Sutures: 5-0 Number of Sutures: 3 Technique: simple, interrupted Patient Tolerated Procedure: well Medical Decision Making - Medical Decision Making Was pt. sent in by a medical professional or institution (, PA, BILL SORTER, urgent care, hospital, or long term...) When possible be specific @ -No Did you speak to anyone other than the patient for history (EMS, parent, family, police, friend...)? What history was obtained from this source @ -No Did you review nursing and triage notes (agree or disagree)? Why? @ -I reviewed and agree with nursing and triage notes Were old charts reviewed (outside hosp., previous admission, EMS record, old EKG, old radiological studies, urgent care reports/EKG's, long term records)? Report findings @ -No old charts were reviewed Differential Diagnosis (chest pain, altered mental status, abdominal pain women, abdominal pain men, vaginal bleeding, weakness, fever, dyspnea, syncope, headache, dizziness, GI bleed, back pain, seizure, CVA, palpatations, mental health, musculoskeletal)? @ -not applicable EKG interpreted by me (3pts min.). @ -As above X-rays interpreted by me (1pt min.). @ -None done CT interpreted by me (1pt min.). @ -None done U/S interpreted by me (1pt. min.). @ -None done What testing was considered but not performed or refused? (CT, X-rays, U/S, labs)? Why? @ -None What meds were considered but not given or refused? Why? @ -None Did you discuss the management of the patient with other professionals (professionals i.e. Dr., PA, BILL SORTER, lab, RT, psych nurse, forensic social worker, bench precision assembler, teacher, operations officer afloat, piano case and bench assembler)? Give summary @ -No Was smoking cessation discussed for >3mins.? @ -No Was critical care preformed (if so, how long)? @ -No Were there social determinants of health that impacted care today? How? (Homelessness, low income, unemployed, alcoholism, drug addiction, transportation, low edu. Level, literacy, decrease access to med. care, chcf, rehab)? @ -No Was there de-escalation of care discussed even if they declined (Discuss DNR or withdrawal of care, Hospice)? DNR status @ -No What co-morbidities impacted this encounter? (DM, HTN, Smoking, COPD, CAD, Ca ncer, CVA, ARF, Chemo, Hep., AIDS, mental health diagnosis, sleep apnea, morbid obesity)? @ -None Was patient admitted / discharged? Hospital course, mention meds given and route, prescriptions, significant lab abnormalities, going to OR and other pertinent info. @ -43-year-old female presenting with chief complaint of laceration to the left ear. There is a 1 cm through and through laceration on the earlobe. Patient's earring was ripped out as it was caught on her shirt. Tetanus is up-to-date. Laceration is repaired. Patient is educated on wound care and signs of infection.Follow-up with PCP. Report back to ER with any new or worsening symptoms. Discussed return parameters and answered all questions. Patient conveyed verbal understanding and agreed to the plan. I discussed this case in detail with my attending Dr. Peng Undiagnosed new problem with uncertain prognosis? @ -No Drug Therapy requiring intensive monitoring for toxicity (Heparin, Nitro, Insulin, Cardizem)? @ -No Were any procedures done? @ -Laceration repair Diagnosis/symptom? @ -Laceration Acute, or Chronic, or Acute on Chronic? @ -Acute Uncomplicated (without systemic symptoms) or Complicated (systemic symptoms)? @ -Uncomplicated Side effects of treatment? @ -No Exacerbation, Progression, or Severe Exacerbation? @ -No Poses a threat to life or bodily function? How? (Chest pain, [place], [place], pneumonia, PE, COPD, DKA, ARF, appy, cholecystitis, CVA, Diverticulitis, Homicidal, Suicidal, threat to staff... and all critical care pts) @ -No Disposition Clinical Impression: Laceration Disposition: HOME SELF-CARE Condition: Good Instructions (If sedation given, give patient instructions): Care For Your Stitches (ED), Laceration (ED) Additional Instructions: Follow-up with PCP. Report back to ER with any new or worsening symptoms. S utures may be removed in 5-7 days. Keep the wound clean and dry. He may cleanse gently with soap and water. Avoid fully submerging the wound, such as swimming or baths. Monitor for signs of infection, including but not limited to redness, swelling, warmth, tenderness, discharge. Is patient prescribed a controlled substance at d/c from ED?: No Referrals: Terence Mota MD [Primary Care Provider] - 1-2 days Time of Disposition: 01:58
[2023-07-02 02:30] VITALS: BP 132/78; PULSE 96; RESP 20
== END 2023-07-02 02:30 | disposition home or self-care (01) ==
LOC: EC 00:14
DX: S01.312A Laceration without foreign body of left ear, initial encounter (principal); J44.9 Chronic obstructive pulmonary disease, unspecified; F41.9 Anxiety disorder, unspecified; F32.A Depression, unspecified; F12.90 Cannabis use, unspecified, uncomplicated; Z88.8 Allergy status to other drugs, medicaments and biological substances; Z91.041 Radiographic dye allergy status; Z79.899 Other long term (current) drug therapy; W49.04XA Ring or other jewelry causing external constriction, initial encounter
CPT/HCPCS: 99282; 12011; J2001

== ENCOUNTER 2023-10-09 06:39 | Emergency (ER) | payer OTHER ==
--- NOTE | 2023-10-09 07:16 | ED ---
Back Pain HPI - General Chief Complaint: Back Pain/Injury Stated Complaint: Abdominal Pain Time Seen by Provider: 10/09/23 06:49 Source: patient, RN notes reviewed Mode of arrival: ambulatory Limitations: no limitations - History of Present Illness Initial Comments: 43-year-old female presents emergency Department with chief complaint of back pain. Patient states that she started having discomfort in her back or flank region last 2-3 days. Patient denies any injury or trauma. She states she has developed urinary frequency, dysuria or she states she's had problems with infections in the past causing similar pain. She is not reporting any known fever she states she's had some chills. Denies any nausea vomiting no change in bowel habits no other associated symptoms. Denies any chance . - Related Data Home Medications Medication Instructions Recorded Confirmed Albuterol Sulfate [Proair Hfa] 1 - 2 puff INHALATION RT-Q4H PRN 05/14/22 05/14/22 Ipratropium-Albuterol Nebulize 3 ml INHALATION RT-QID PRN 05/14/22 05/14/22 [Duoneb 0.5 mg-3 mg/3 ml Soln] Previous Rx's Medication Instructions Recorded Albuterol Sulfate [Proair Hfa] 1 - 2 puff INHALATION Q4HR PRN 05/14/22 #8.5 gm Beclomethasone Dipropionate [Qvar 1 puff INHALATION DAILY #10.6 gm 05/14/22 40 mcg Redihaler] Ipratropium-Albuterol Nebulize 3 ml INHALATION Q4HR #90 ml 05/14/22 [Duoneb 0.5 mg-3 mg/3 ml Soln] Montelukast [Singulair] 10 mg PO HS #30 tab 05/14/22 predniSONE [Deltasone] 20 mg PO BID #10 tab 05/14/22 Albuterol Sulfate [Albuterol 2 puff PO Q6H #8.5 gm 09/12/22 Sulfate Hfa] Ipratropium-Albuterol Nebulize 3 ml INHALATION Q4HR PRN #90 ml 09/12/22 [Duoneb 0.5 mg-3 mg/3 ml Soln] methylPREDNISolone Dose Pack 4 mg PO DIRECTED #1 packet 09/12/22 [Medrol Dose Pack] Ipratropium/Albuter 20-100Mcg 1 puff INHALATION QID #4 gm 02/09/23 [Combivent Respimat 20-100Mcg Inhaler] predniSONE [Deltasone] 20 mg PO BID #10 tab 02/09/23 Albuterol Inhaler [Ventolin Hfa 1 - 2 puff INHALATION Q6H PRN 30 04/28/23 Inhaler] Days #1 each Albuterol Nebulized [Ventolin 3 ml INHALATION Q6H 6 Days #75 ml 04/28/23 Nebulized (Accuneb)] Montelukast [Singulair] 10 mg PO HS 30 Days #30 tab 04/28/23 methylPREDNISolone Dose Pack 4 mg PO DIRECTED #21 tab 04/28/23 [Medrol Dose Pack] Nitrofurantoin Monohyd/M-Cryst 100 mg PO Q12HR #14 cap 10/09/23 [Macrobid] Allergies Allergy/AdvReac Type Severity Reaction Status Date / Time ascorbic acid Allergy Anaphylaxis Verified 04/28/23 05:49 [From [facility]- Vitamin D-Calcium] calcium combination no.27 Allergy Anaphylaxis Verified 04/28/23 05:49 [From [facility] Vitamin D-Calcium] cholecalciferol (vitamin D3) Allergy Anaphylaxis Verified 04/28/23 05:49 [From [facility] Vitamin D-Calcium] diphenhydramine HCl Allergy Dyspnea Verified 04/28/23 05:49 [From Benadryl] Iodinated Contrast Media Allergy Anaphylaxis Verified 04/28/23 05:49 [Iodinated Contrast Media - IV Dye] multivitamin with minerals Allergy Anaphylaxis Verified 04/28/23 05:49 [From [facility]- Vitamin D-Calcium] methylprednisolone AdvReac shaky & Verified 04/28/23 05:49 [From Medrol] anxious Review of Systems ROS Statement: Those systems with pertinent positive or pertinent negative responses have been documented in the HPI. ROS Other: All systems not noted in ROS Statement are negative. Past Medical History Past Medical History: Asthma, COPD, Fibromyalgia Additional Past Medical History / Comment(s): DDD, tmj, History of Any Multi-Drug Resistant Organisms: None Reported Past Surgical History: Adenoidectomy, Cholecystectomy, Ear Surgery, Tonsillectomy Past Anesthesia/Blood Transfusion Reactions: Motion Sickness, Postoperative Nausea & Vomiting (PONV) Past Psychological History: Anxiety, Depression Smoking Status: Never smoker Past Alcohol Use History: None Reported Past Drug Use History: Marijuana General Exam Limitations: no limitations General appearance: alert, in no apparent distress Head exam: Present: atraumatic, normocephalic, normal inspection Eye exam: Present: normal appearance, PERRL, EOMI. Absent: scleral icterus, conjunctival injection, periorbital swelling ENT exam: Present: normal exam, mucous membranes moist Neck exam: Present: normal inspection, full ROM. Absent: tenderness, meningismus, lymphadenopathy Respiratory exam: Present: normal lung sounds bilaterally. Absent: respiratory distress, wheezes, rales, rhonchi, stridor Cardiovascular Exam: Present: regular rate, normal rhythm, normal heart sounds. Absent: systolic murmur, diastolic murmur, rubs, gallop, clicks GI/Abdominal exam: Present: soft, normal bowel sounds. Absent: distended, tenderness, guarding, rebound, rigid Back exam: Present: CVA tenderness (R), CVA tenderness (L) Neurological exam: Present: alert, oriented X3 Course Vital Signs 10/09/23 10/09/23 10/09/23 06:42 07:21 08:00 Temperature 97.8 F Pulse Rate 88 68 80 Respiratory 18 16 20 Rate Blood Pressure 123/85 130/80 130/76 O2 Sat by Pulse 98 98 98 Oximetry Medical Decision Making - Medical Decision Making Was pt. sent in by a medical professional or institution (Dr. PA, HAND SPRAY OPERATOR, urgent care, hospital, or senior care...) When possible be specific @ -No Did you speak to anyone other than the patient for history (EMS, parent, family, police, friend...)? What history was obtained from this source @ -No Did you review nursing and triage notes (agree or disagree)? Why? @ -I reviewed and agree with nursing and triage notes Were old charts reviewed (outside hosp., previous admission, EMS record, old EKG, old radiological studies, urgent care reports/EKG's, senior care records)? Report findings @ -No old charts were reviewed Differential Diagnosis (chest pain, altered mental status, abdominal pain women, abdominal pain men, vaginal bleeding, weakness, fever, dyspnea, syncope, headache, dizziness, GI bleed, back pain, seizure, CVA, palpatations, mental health, musculoskeletal)? @ -nDifferential Back Pain: Strain, zoster, cauda equina syndrome, epidural abscess, vertebral osteomyelitis, discitis, fracture, subluxation, disc herniation, DJD, spinal stenosis, dissection, AAA, pancreatitis, peptic ulcer disease, pyelonephritis, kidney stone, this is not meant to be an all-inclusive list.e EKG interpreted by me (3pts min.). @ -None X-rays interpreted by me (1pt min.). @ -None done CT interpreted by me (1pt min.). @ -None done U/S interpreted by me (1pt. min.). @ -None done What testing was considered but not performed or refused? (CT, X-rays, U/S, labs)? Why? @ -None What meds were considered but not given or refused? Why? @ -None Did you discuss the management of the patient with other professionals (professionals i.e. , PA, HAND SPRAY OPERATOR, lab, RT, psych nurse, social work lecturer, screener perfumer, teacher, seismology technical officer, test case developer)? Give summary @ -No Was smoking cessation discussed for >3mins.? @ -No Was critical care preformed (if so, how long)? @ -No Were there social determinants of health that impacted care today? How? (Homelessness, low income, unemployed, alcoholism, drug addiction, transportation, low edu. Level, literacy, decrease access to med. care, correction, rehab)? @ -No Was there de-escalation of care discussed even if they declined (Discuss DNR or withdrawal of care, Hospice)? DNR status @ -No What co-morbidities impacted this encounter? (DM, HTN, Smoking, COPD, CAD, Cancer, CVA, ARF, Chemo, Hep., AIDS, mental health diagnosis, sleep apnea, morbid obesity)? @ -None Was patient admitted / discharged? Hospital course, mention meds given and route, prescriptions, significant lab abnormalities, going to OR and other pertinent info. @ -Discharge patient has evidence of UTI. Patient is afebrile, vital stable otherwise. Patient was given Rocephin will be discharged on Macrobid urine culture was sent return parameters were discussed. Undiagnosed new problem with uncertain prognosis? @ -No Drug Therapy requiring intensive monitoring for toxicity (Heparin, Nitro, Insulin, Cardizem)? @ -No Were any procedures done? @ -No Diagnosis/symptom? @ -UTI Acute, or Chronic, or Acute on Chronic? @ -Acute Uncomplicated (without systemic symptoms) or Complicated (systemic symptoms)? @ -Uncomplicated Side effects of treatment? @ -No Exacerbation, Progression, or Severe Exacerbation? @ -No Poses a threat to life or bodily function? How? (Chest pain, [place], [place], pneumonia, PE, COPD, DKA, ARF, appy, cholecystitis, CVA, Diverticulitis, Homicidal, Suicidal, threat to staff... and all critical care pts) @ -No - Lab Data Lab Results 10/09/23 10/09/23 Range/Units 07:19 07:19 Urine Color Light Yellow Urine Appearance Cloudy H (Clear) Urine pH 7.5 (5.0-8.0) Ur Specific [place] 1.014 (1.001-1.035) Urine Protein 1+ H (Negative) Urine Glucose (UA) Negative (Negative) Urine Ketones Negative (Negative) Urine Blood Trace H (Negative) Urine Nitrite Negative (Negative) Urine Bilirubin Negative (Negative) Urine Urobilinogen <2.0 (<2.0) mg/dL Ur Leukocyte Esterase Large H (Negative) Urine RBC 9 H (0-5) /hpf Urine WBC 78 H (0-5) /hpf Ur Squamous Epith Cells 1 (0-4) /hpf Urine Mucus Occasional H (None) /hpf Urine HCG, Qual Not Detected (Not Detectd) Disposition Clinical Impression: UTI (urinary tract infection) Disposition: HOME SELF-CARE Condition: Stable Instructions (If sedation given, give patient instructions): Urinary Tract Infection in Women (ED) Additional Instructions: Please return to the Emergency Department if symptoms worsen or any other concerns. Prescriptions: Nitrofurantoin Monohyd/M-Cryst [Macrobid] 100 mg PO Q12HR #14 cap Is patient prescribed a controlled substance at d/c from ED?: No Referrals: Terence Mota MD [Primary Care Provider] - 1-2 days Time of Disposition: 08:43
[2023-10-09 07:30] VITALS: TEMP 97.8
[2023-10-09 07:59] LABS: Appearance,Urine Cloudy (Clear); Bilirubin,Urine Negative (Negative); Blood,Urine Trace (Negative); Color,Urine Light Yellow; Glucose,Urine (UA) Negative (Negative); Ketones,Urine Negative (Negative); Leukocyte Esterase,Urine Large (Negative); Mucus,Urine Occasional /hpf; Nitrite,Urine Negative (Negative); PH, Urine 7.5 (5.0-8.0); Protein,Urine 1+ (Negative); RBC,Urine 9 /hpf (0-5); Specific Gravity,Urine 1.014 (1.001-1.035); Squamous Epithelial Cell,Urine 1 /hpf (0-4); Urobilinogen,Urine <2.0 mg/dL (<2.0); WBC,Urine 78 /hpf (0-5)
[2023-10-09] MEDS ORDERED: cefTRIAXone 1,000 MG VIAL (IM USE) IM STA (08:46)
[2023-10-09 09:24] VITALS: BP 120/80; PULSE 70; RESP 16
== END 2023-10-09 09:06 | disposition home or self-care (01) ==
LOC: EC 06:39
DX: N39.0 Urinary tract infection, site not specified (principal); J44.89 Other specified chronic obstructive pulmonary disease; F41.9 Anxiety disorder, unspecified; F32.A Depression, unspecified; F12.90 Cannabis use, unspecified, uncomplicated; Z88.8 Allergy status to other drugs, medicaments and biological substances; Z91.041 Radiographic dye allergy status; Z79.899 Other long term (current) drug therapy
CPT/HCPCS: 99283; 96372; 81001; 81025; 87086; J0696

== ENCOUNTER 2023-11-13 04:22 | Emergency (ER) | payer OTHER ==
[2023-11-13] MEDS ORDERED: IPRATROPIUM-ALBUTEROL 3 ML NEB INHALATION STA ×2 (06:19→09:29)
[2023-11-13] MEDS ORDERED: methylPREDNISolone SOD SUCCI 125 MG/2 ML VIAL IV STA (06:19)
--- NOTE | 2023-11-13 06:30 | ED ---
General Adult HPI - General Source: patient, RN notes reviewed Mode of arrival: ambulatory Limitations: no limitations <Henrique Napier - Last Filed: 11/13/23 06:29> - General Source: patient, RN notes reviewed, old records reviewed <Josue Hooper - Last Filed: 11/13/23 11:17> - General Chief complaint: Shortness of Breath Stated complaint: asthma Time Seen by Provider: 11/13/23 06:29 - History of Present Illness Initial comments: this is a 43-year-old female presents emergency Department chief complaint of shortness of breath. Patient states she has asthma states that her inhaler is not relieving her symptoms. Patient does admitthat she's daily smoker. Patient states symptoms have been going on for several days but worsened overnight. She states that for the outside seems to help her symptoms. No reports of fever. No with chest pain. (Henrique Napier) Patient originally evaluated as a quick note. Presents complaining of shortness of breath. Patient has a history of asthma. Symptoms began on [place]. Have progressively worsened. Does have a history of asthma and states she was around many of her triggers over [place]. Presents for further evaluation at this time. Does endorse a mild productive cough. Endorses dyspnea. Denies any chest pain or shortness breath. No other acute complaints at this time. Presents for further evaluation at this time. (Josue Hooper) - Related Data Home Medications Medication Instructions Recorded Confirmed Albuterol Sulfate [Proair Hfa] 1 - 2 puff INHALATION RT-Q4H PRN 05/14/22 05/14/22 Ipratropium-Albuterol Nebulize 3 ml INHALATION RT-QID PRN 05/14/22 05/14/22 [Duoneb 0.5 mg-3 mg/3 ml Soln] Previous Rx's Medication Instructions Recorded Albuterol Sulfate [Proair Hfa] 1 - 2 puff INHALATION Q4HR PRN 05/14/22 #8.5 gm Beclomethasone Dipropionate [Qvar 1 puff INHALATION DAILY #10.6 gm 05/14/22 40 mcg Redihaler] Ipratropium-Albuterol Nebulize 3 ml INHALATION Q4HR #90 ml 05/14/22 [Duoneb 0.5 mg-3 mg/3 ml Soln] Montelukast [Singulair] 10 mg PO HS #30 tab 05/14/22 predniSONE [Deltasone] 20 mg PO BID #10 tab 05/14/22 Albuterol Sulfate [Albuterol 2 puff PO Q6H #8.5 gm 09/12/22 Sulfate Hfa] Ipratropium-Albuterol Nebulize 3 ml INHALATION Q4HR PRN #90 ml 09/12/22 [Duoneb 0.5 mg-3 mg/3 ml Soln] methylPREDNISolone Dose Pack 4 mg PO DIRECTED #1 packet 09/12/22 [Medrol Dose Pack] Ipratropium/Albuter 20-100Mcg 1 puff INHALATION QID #4 gm 02/09/23 [Combivent Respimat 20-100Mcg Inhaler] predniSONE [Deltasone] 20 mg PO BID #10 tab 02/09/23 Albuterol Inhaler [Ventolin Hfa 1 - 2 puff INHALATION Q6H PRN 30 04/28/23 Inhaler] Days #1 each Albuterol Nebulized [Ventolin 3 ml INHALATION Q6H 6 Days #75 ml 04/28/23 Nebulized (Accuneb)] Montelukast [Singulair] 10 mg PO HS 30 Days #30 tab 04/28/23 methylPREDNISolone Dose Pack 4 mg PO DIRECTED #21 tab 04/28/23 [Medrol Dose Pack] Nitrofurantoin Monohyd/M-Cryst 100 mg PO Q12HR #14 cap 10/09/23 [Macrobid] Albuterol Inhaler [Ventolin Hfa 1 puff INHALATION QID #8 gm 11/13/23 Inhaler] Albuterol Nebulized [Ventolin 2.5 mg INHALATION Q6H 6 Days #75 ml 11/13/23 Nebulized] Azithromycin [Zithromax] 250 mg PO DAILY 4 Days #4 tab 11/13/23 predniSONE [Deltasone] 40 mg PO DAILY 5 Days #10 tab 11/13/23 Allergies Allergy/AdvReac Type Severity Reaction Status Date / Time ascorbic acid Allergy Anaphylaxis Verified 11/13/23 08:28 [From [facility] Vitamin D-Calcium] calcium combination no.27 Allergy Anaphylaxis Verified 11/13/23 08:28 [From [facility] Vitamin D-Calcium] cholecalciferol (vitamin D3) Allergy Anaphylaxis Verified 11/13/23 08:28 [From [facility] Vitamin D-Calcium] diphenhydramine HCl Allergy Dyspnea Verified 11/13/23 08:28 [From Benadryl] Iodinated Contrast Media Allergy Anaphylaxis Verified 11/13/23 08:28 [Iodinated Contrast Media - IV Dye] multivitamin with minerals Allergy Anaphylaxis Verified 11/13/23 08:28 [From [facility] Vitamin D-Calcium] methylprednisolone AdvReac shaky & Verified 11/13/23 08:28 [From Medrol] anxious Review of Systems ROS Other: All systems not noted in ROS Statement are negative. <Henrique Napier - Last Filed: 11/13/23 06:29> ROS Other: All systems not noted in ROS Statement are negative. <Josue Hooper - Last Filed: 11/13/23 11:17> ROS Statement: Those systems with pertinent positive or pertinent negative responses have been documented in the HPI. Review of Systems: CONST: Denies fever EYES: Denies blurry vision ENT: Denies nasal congestion C/V: Denies Chest pain RESP: Endorses wheezing, cough GI: Denies abdominal pain : Denies dysuria SKIN: Denies rash. MSK: Denies joint pain. NEURO: Denies headache (Joseu Hooper) Past Medical History Past Medical History: Asthma, COPD, Fibromyalgia Additional Past Medical History / Comment(s): DDD, tmj, History of Any Multi-Drug Resistant Organisms: None Reported Past Surgical History: Adenoidectomy, Cholecystectomy, Ear Surgery, Tonsillectomy Past Anesthesia/Blood Transfusion Reactions: Motion Sickness, Postoperative Nausea & Vomiting (PONV) Past Psychological History: Anxiety, Depression Smoking Status: Never smoker Past Alcohol Use History: None Reported Past Drug Use History: Marijuana <Henrique Napier - Last Filed: 11/13/23 06:29> General Exam Limitations: no limitations <Henrique Napier - Last Filed: 11/13/23 06:29> <Josue Hooper - Last Filed: 11/13/23 11:17> - General Exam Comments Initial Comments: Visual Physical Exam Vital signs reviewed General: Well-appearing, nontoxic, no acute distress. Head: Normocephalic, atraumatic Eyes: PERRLA, EOMI ENT: Airway patent Chest: Nonlabored breathing Skin: No visual rash, normal skin tone Neuro: Alert and oriented 3 Musculoskeletal: No gross abnormalities (Henrique Napier) General: Appears in mild distress. HEAD: Normal with no signs of head trauma. EYES: PERRLA, EOMI, conjunctiva normal, no discharge. ENT: Hearing grossly intact, normal oropharynx. RESPIRATORY: Bilateral wheezing. No significant hypoxia. Mild increased work of breathing. C/V: Regular rate and rhythm. S1 and S2 auscultated, no edema, peripheral pulses 2+ and intact throughout ABD: Abd is soft, nontender, nondistended EXT: Normal range of motion, no obvious deformity SKIN: No rashes or lesions observed on exposed skin. NEURO: Alert and oriented x 4. (Josue Hooper) Course Vital Signs 11/13/23 11/13/23 11/13/23 04:48 08:49 09:08 Temperature 98.2 F Pulse Rate 83 83 80 Respiratory 24 Rate Blood Pressure 152/80 O2 Sat by Pulse 96 Oximetry 11/13/23 11/13/23 11/13/23 09:30 10:11 10:19 Temperature Pulse Rate 81 79 Respiratory 18 Rate Blood Pressure O2 Sat by Pulse Oximetry 11/13/23 10:45 Temperature 98.8 F Pulse Rate 80 Respiratory 18 Rate Blood Pressure 121/79 O2 Sat by Pulse 98 Oximetry Medical Decision Making <Henrique Napier - Last Filed: 11/13/23 06:29> <Josue Hooper - Last Filed: 11/13/23 11:17> - Medical Decision Making I completed the quick note portion of this chart signed Henrique Napier PA-C (Henrique Napier) Was pt. sent in by a medical professional or institution (ABIODUN Shine, RISK CONTROL PRODUCT LIABILITY DIRECTOR, urgent care, hospital, or long-term...) When possible be specific @ -No Did you speak to anyone other than the patient for history (EMS, parent, family, police, friend...)? What history was obtained from this source @ -No Did you review nursing and triage notes (agree or disagree)? Why? @ -I reviewed and agree with nursing and triage notes Were old charts reviewed (outside hosp., previous admission, EMS record, old EKG, old radiological studies, urgent care reports/EKG's, long-term records)? Report findings @ -Old charts reviewed Differential Diagnosis (chest pain, altered mental status, abdominal pain women, abdominal pain men, vaginal bleeding, weakness, fever, dyspnea, syncope, headache, dizziness, GI bleed, back pain, seizure, CVA, palpatations, mental health, musculoskeletal)? @ -Asthma, flu, pneumonia, Covid, tracheal bronchitis. As this is not all inclusive. EKG interpreted by me (3pts min.). @ -None done X-rays interpreted by me (1pt min.). @ -Chest x-ray shows no obvious acute cardio pulmonary process. CT interpreted by me (1pt min.). @ -None done U/S interpreted by me (1pt. min.). @ -None done What testing was considered but not performed or refused? (CT, X-rays, U/S, labs)? Why? @ -None What meds were considered but not given or refused? Why? @ -None Did you discuss the management of the patient with other professionals (professionals i.e. , PA, RISK CONTROL PRODUCT LIABILITY DIRECTOR, lab, RT, psych nurse, social media campaign manager, bird raiser, teacher, police liaison officer, behavioral health case manager)? Give summary @ -No Was smoking cessation discussed for >3mins.? @ -No Was critical care preformed (if so, how long)? @ -No Were there social determinants of health that impacted care today? How? (Homelessness, low income, unemployed, alcoholism, drug addiction, transportation, low edu. Level, literacy, decrease access to med. care, retirement, rehab)? @ -No Was there de-escalation of care discussed even if they declined (Discuss DNR or withdrawal of care, Hospice)? DNR status @ -No What co-morbidities impacted this encounter? (DM, HTN, Smoking, COPD, CAD, Cancer, CVA, ARF, Chemo, Hep., AIDS, mental health diagnosis, sleep apnea, morbid obesity)? @ -None Was patient admitted / discharged? Hospital course, mention meds given and route, prescriptions, significant lab abnormalities, going to OR and other pertinent info. @ -Based on the patient's presentation and physical exam, presents for asthma exacerbation as well as concern for upper respiratory infection. Vital signs within acceptable limits. She does have increased work of breathing as well as wheezing. Workup was completed in triage and showed a chest x-ray that was unremarkable as well as negative viral swabs. We will administer IM Solu-Medrol as well as multiple breathing treatments. We will reevaluate for improvement. Patient was in agreement with this plan. On reevaluation, wheezing is improved. She is asking for 1 additional breathing treatment which will be administered. Patient be started on Z-Jose Angel for tracheobronchitis as well as given a prescription for prednisone and albuterol refills. She was in agreement with this plan. I will provide the patient with a prescription for azithromycin, prednisone, albuterol. I instructed the patient to follow up with their PCP in the next 1-3 days. I explained that the patient should return to the emergency department if they experience any worsening symptoms. Strict return precautions were discussed with the patient. The patient expressed understanding of these instructions. I answered all questions that the patient had. The patient was discharged home in good condition with their prescriptions and follow up information. Undiagnosed new problem with uncertain prognosis? @ -No Drug Therapy requiring intensive monitoring for toxicity (Heparin, Nitro, Insulin, Cardizem)? @ -No Were any procedures done? @ -No Diagnosis/symptom? @ -Asthma exacerbation, tracheobronchitis Acute, or Chronic, or Acute on Chronic? @ -Acute Uncomplicated (without systemic symptoms) or Complicated (systemic symptoms)? @ -Complicated Side effects of treatment? @ -No Exacerbation, Progression, or Severe Exacerbation? @ -No Poses a threat to life or bodily function? How? (Chest pain, [place], [place], pneumonia, PE, COPD, DKA, ARF, appy, cholecystitis, CVA, Diverticulitis, Homicidal, Suicidal, threat to staff... and all critical care pts) @ -No (Josue Hooper) - Lab Data Lab Results 11/13/23 Range/Units 04:52 Influenza Type A (PCR) Not Detected (Not Detectd) Influenza Type B (PCR) Not Detected (Not Detectd) RSV (PCR) Not Detected (Not Detectd) SARS-CoV-2 (PCR) Not Detected (Not Detectd) Disposition <Henrique Napier - Last Filed: 11/13/23 06:29> Is patient prescribed a controlled substance at d/c from ED?: No Time of Disposition: 09:22 <Josue Hooper - Last Filed: 11/13/23 11:17> Clinical Impression: Asthma, Tracheobronchitis Disposition: HOME SELF-CARE Condition: Good Instructions (If sedation given, give patient instructions): Asthma (ED), Acute Bronchitis (ED) Prescriptions: predniSONE [Deltasone] 40 mg PO DAILY 5 Days #10 tab Albuterol Inhaler [Ventolin Hfa Inhaler] 1 puff INHALATION QID #8 gm Albuterol Nebulized [Ventolin Nebulized] 2.5 mg INHALATION Q6H 6 Days #75 ml Azithromycin [Zithromax] 250 mg PO DAILY 4 Days #4 tab Referrals: Terence Mota MD [Primary Care Provider] - 1-2 days
--- NOTE | 2023-11-13 07:42 | XR ---
EXAMINATION TYPE: XR chest 2V DATE OF EXAM: 11/13/2023 7:19 AM CLINICAL INDICATION:Female, 43 years old with history of sob; COMPARISON: Chest radiographs from 04/28/2023. TECHNIQUE: XR chest 2V Frontal and lateral views of the chest. FINDINGS: Lungs/Pleura: There is no evidence of pleural effusion, focal consolidation, or pneumothorax. Pulmonary vascularity: Unremarkable. Heart/mediastinum: Cardiomediastinal silhouette is unremarkable. Musculoskeletal: No acute osseous pathology. Other findings: None IMPRESSION: No acute cardiopulmonary disease/process.
[2023-11-13] MEDS ORDERED: methylPREDNISolone SOD SUCCI 125 MG/2 ML VIAL IM ONE (08:37)
[2023-11-13] MEDS ORDERED: AZITHROMYCIN 500 MG TAB PO STA (09:29)
[2023-11-13 11:01] VITALS: BP 121/79; PULSE 80; RESP 18; TEMP 98.8
== END 2023-11-13 10:52 | disposition home or self-care (01) ==
LOC: EC 04:22
DX: J40 Bronchitis, not specified as acute or chronic (principal); J44.89 Other specified chronic obstructive pulmonary disease; F12.90 Cannabis use, unspecified, uncomplicated; Z86.59 Personal history of other mental and behavioral disorders; Z79.899 Other long term (current) drug therapy; Z88.8 Allergy status to other drugs, medicaments and biological substances; Z91.041 Radiographic dye allergy status; Z20.822 Contact with and (suspected) exposure to COVID-19
CPT/HCPCS: 94640 ×2; 87636; 71046; 99285; 96372; J2930

== ENCOUNTER 2024-05-01 06:29 | Emergency (ER) | payer OTHER ==
[2024-05-01] MEDS: SODIUM CHLORIDE 0.9% 1,000 ML IV STA (08:17)
[2024-05-01] MEDS: methylPREDNISolone SOD SUCCI 125 MG/2 ML VIAL IV STA (08:18)
[2024-05-01] MEDS: MAGNESIUM SULFATE-D5W PMX 1 GM in DEXTROSE/WATER 1 100ML.BAG IVPB ONE (08:20)
[2024-05-01] MEDS: IPRATROPIUM-ALBUTEROL 3 ML NEB INHALATION STA ×2 (08:26→09:21)
[2024-05-01 08:30] LABS: Basophils # (A) 0.1 k/uL (0-0.2); Basophils % (A) 1 %; Eosinophils % (A) 11 %; HCT 43.8 % (34.0-46.0); Lymphocytes # (A) 1.4 k/uL (1.0-4.8); Lymphocytes % (A) 14 %; MCH 33.2 pg (25.0-35.0); MCHC 34.3 g/dL (31.0-37.0); MCV 96.6 fL (80.0-100.0); Mean Platelet Volume 8.7; Monocytes # (A) 0.4 k/uL (0-1.0); Monocytes % (A) 4 %; Neutrophils # (A) 6.8 k/uL (1.3-7.7); Neutrophils % (A) 70 %; Platelet Count 227 k/uL (150-450); RBC 4.54 m/uL (3.80-5.40); RDW 12.9 % (11.5-15.5); WBC 9.7 k/uL (3.8-10.6)
--- NOTE | 2024-05-01 08:32 | ED ---
General Adult HPI - General Chief complaint: Shortness of Breath Stated complaint: ARACELIS Time Seen by Provider: 05/01/24 07:59 Source: patient, EMS, RN notes reviewed, old records reviewed Mode of arrival: EMS Limitations: no limitations - History of Present Illness Initial comments: Patient is a 44-year-old female with asthma the past medical history that seems to be more moderate intermittent who presents emergency department complaining of chest tightness and shortness of breath. Has been worsening over the last few days but significantly worse over the last day. States she typically has the symptoms at the beginning of summer with allergies or pollen in the air. Attempted to use her home inhalers without much improvement. Endorses chest tightness but no ted chest pain. Endorses cough that is not productive. Denies nausea or vomiting. Denies diarrhea. No other acute complaints at this time. Presents for further evaluation at this time. Complete started in triage. I evaluated the patient when she was placed in a room. - Related Data Home Medications Medication Instructions Recorded Confirmed Albuterol Inhaler [Ventolin Hfa 1 puff INHALATION RT-QID PRN 05/01/24 05/01/24 Inhaler] Albuterol Nebulized [Ventolin 2.5 mg INHALATION RT-Q6H PRN 05/01/24 05/01/24 Nebulized] Loratadine [Claritin] 10 mg PO DAILY 05/01/24 05/01/24 Previous Rx's Medication Instructions Recorded Albuterol Inhaler [Ventolin Hfa 1 - 2 puff INHALATION Q6H PRN #1 05/01/24 Inhaler] each Azithromycin [Zithromax] 250 mg PO DAILY 4 Days #4 tab 05/01/24 predniSONE [Deltasone] 40 mg PO DAILY 5 Days #10 tab 05/01/24 Allergies Allergy/AdvReac Type Severity Reaction Status Date / Time ascorbic acid Allergy Anaphylaxis Verified 05/01/24 09:25 [From Emergen-C Vitamin D-Calcium] calcium combination no.27 Allergy Anaphylaxis Verified 05/01/24 09:25 [From Emergen-C Vitamin D-Calcium] cholecalciferol (vitamin D3) Allergy Anaphylaxis Verified 05/01/24 09:25 [From Emergen-C Vitamin D-Calcium] diphenhydramine HCl Allergy Dyspnea/Chest Verified 05/01/24 09:25 [From Benadryl] Pain Iodinated Contrast Media Allergy Anaphylaxis Verified 05/01/24 09:25 [Iodinated Contrast Media - IV Dye] multivitamin with minerals Allergy Anaphylaxis Verified 05/01/24 09:25 [From Emergen-C Vitamin D-Calcium] methylprednisolone AdvReac shaky & Verified 05/01/24 09:25 [From Medrol] anxious Review of Systems ROS Statement: Those systems with pertinent positive or pertinent negative responses have been documented in the HPI. Review of Systems: CONST: Denies fever EYES: Denies blurry vision ENT: Denies nasal congestion C/V: Denies Chest pain RESP: Endorses shortness of breath GI: Denies abdominal pain : Denies dysuria SKIN: Denies rash. MSK: Denies joint pain. NEURO: Denies headache ROS Other: All systems not noted in ROS Statement are negative. Past Medical History Past Medical History: Asthma, COPD, Fibromyalgia Additional Past Medical History / Comment(s): DDD, tmj, History of Any Multi-Drug Resistant Organisms: None Reported Past Surgical History: Adenoidectomy, Cholecystectomy, Ear Surgery, Tonsillectomy Past Anesthesia/Blood Transfusion Reactions: Motion Sickness, Postoperative Nausea & Vomiting (PONV) Past Psychological History: Anxiety, Depression Smoking Status: Never smoker Past Alcohol Use History: None Reported Past Drug Use History: Marijuana General Exam - General Exam Comments Initial Comments: General: Appears in no acute distress. HEAD: Normal with no signs of head trauma. EYES: EOMI ENT: Hearing grossly intact RESPIRATORY: Significant bilateral end expiratory wheezing. No significant increased work of breathing. Mild hypoxia in room air to 93 to 94%. C/V: Regular rate and rhythm. S1 and S2 auscultated, peripheral pulses 2+ and intact throughout ABD: Abd is soft, nontender, nondistended EXT: no obvious deformity SKIN: No rashes or lesions observed on exposed skin. NEURO: Alert and oriented x 4. Limitations: no limitations Course Vital Signs 05/01/24 05/01/24 05/01/24 06:34 07:56 08:26 Temperature 98.1 F Pulse Rate 85 84 90 Respiratory 20 22 Rate Blood Pressure 142/91 131/101 O2 Sat by Pulse 94 L 93 L Oximetry 05/01/24 05/01/24 05/01/24 08:49 09:08 09:21 Temperature Pulse Rate 92 92 76 Respiratory 18 Rate Blood Pressure 133/98 O2 Sat by Pulse 95 Oximetry 05/01/24 05/01/24 09:37 10:27 Temperature 97.8 F Pulse Rate 84 78 Respiratory 18 Rate Blood Pressure 131/91 O2 Sat by Pulse 99 Oximetry Medical Decision Making - Medical Decision Making Was pt. sent in by a medical professional or institution (ABIODUN Shine, DIESEL MECHANIC, urgent care, hospital, or prison...) When possible be specific @ -No Did you speak to anyone other than the patient for history (EMS, parent, family, police, friend...)? What history was obtained from this source @ -No Did you review nursing and triage notes (agree or disagree)? Why? @ -I reviewed and agree with nursing and triage notes Were old charts reviewed (outside hosp., previous admission, EMS record, old EKG, old radiological studies, urgent care reports/EKG's, prison records)? Report findings @ -No old charts were reviewed Differential Diagnosis (chest pain, altered mental status, abdominal pain women, abdominal pain men, vaginal bleeding, weakness, fever, dyspnea, syncope, headache, dizziness, GI bleed, back pain, seizure, CVA, palpatations, mental health, musculoskeletal)? @ -Asthma, COPD, pneumonia, COVID, flu, RSV. This list is not all inclusive. EKG interpreted by me (3pts min.). @ -As above X-rays interpreted by me (1pt min.). @ -Chest x-ray reveals no obvious acute cardiopulmonary process. CT interpreted by me (1pt min.). @ -None done U/S interpreted by me (1pt. min.). @ -None done What testing was considered but not performed or refused? (CT, X-rays, U/S, labs)? Why? @ -None What meds were considered but not given or refused? Why? @ -None Did you discuss the management of the patient with other professionals (professionals i.e. ABIODUN Shine, DIESEL MECHANIC, lab, RT, psych nurse, social group worker, swager operator, teacher, global chief creative officer, immigration case manager)? Give summary @ -No Was smoking cessation discussed for >3mins.? @ -No Was critical care preformed (if so, how long)? @ -No Were there social determinants of health that impacted care today? How? (Homelessness, low income, unemployed, alcoholism, drug addiction, transportation, low edu. Level, literacy, decrease access to med. care, detention, rehab)? @ -No Was there de-escalation of care discussed even if they declined (Discuss DNR or withdrawal of care, Hospice)? DNR status @ -No What co-morbidities impacted this encounter? (DM, HTN, Smoking, COPD, CAD, Cancer, CVA, ARF, Chemo, Hep., AIDS, mental health diagnosis, sleep apnea, morbid obesity)? @ -None Was patient admitted / discharged? Hospital course, mention meds given and route, prescriptions, significant lab abnormalities, going to OR and other pertinent info. @ -Based on the patient's presentation and physical exam,. She is having an asthma exacerbation. Will obtain chest x-ray, basic labs, viral swabs, EKG. Patient be symptomatically treated with multiple breathing treatments, IV steroids, IV fluids. Patient was in agreement this plan. She also received IV magnesium. Vital signs remarkable for slight hypoxia to 93 to 94%. She will be connected to continuous pulse oximetry and we will continue to monitor. Viral swabs negative. Labs unremarkable. Chest x-ray shows no obvious acute cardiopulmonary process. Following treatments, she is feeling improved. She is requesting 1 additional treatment which will be provided. Following third treatment, patient's lungs are sounding improved. Minimal wheezing at this time. Saturation is 99%. No respiratory distress. She will be discharged home at this time with prescriptions for prednisone, azithromycin, albuterol inhaler. Patient was in agreement this plan. I instructed the patient to follow up with their PCP in the next 1-3 days. I explained that the patient should return to the emergency department if they experience any worsening symptoms. Strict return precautions were discussed with the patient. The patient expressed understanding of these instructions. I answered all questions that the patient had. The patient was discharged home in good condition with their prescriptions and follow up information. Undiagnosed new problem with uncertain prognosis? @ -No Drug Therapy requiring intensive monitoring for toxicity (Heparin, Nitro, Insulin, Cardizem)? @ -No Were any procedures done? @ -No Diagnosis/symptom? @ -Asthma Acute, or Chronic, or Acute on Chronic? @ -Acute Uncomplicated (without systemic symptoms) or Complicated (systemic symptoms)? @ -Complicated Side effects of treatment? @ -None Exacerbation, Progression, or Severe Exacerbation] @ -Yes Poses a threat to life or bodily function? @ -Unlikely - Lab Data Result diagrams: 05/01/24 08:14 05/01/24 08:14 Lab Results 05/01/24 05/01/24 05/01/24 Range/Units 08:14 08:14 08:14 WBC 9.7 (3.8-10.6) k/uL RBC 4.54 (3.80-5.40) m/uL Hgb 15.0 (11.4-16.0) gm/dL Hct 43.8 (34.0-46.0) % MCV 96.6 (80.0-100.0) fL MCH 33.2 (25.0-35.0) pg MCHC 34.3 (31.0-37.0) g/dL RDW 12.9 (11.5-15.5) % Plt Count 227 (150-450) k/uL MPV 8.7 Neutrophils % 70 % Lymphocytes % 14 % Monocytes % 4 % Eosinophils % 11 % Basophils % 1 % Neutrophils # 6.8 (1.3-7.7) k/uL Lymphocytes # 1.4 (1.0-4.8) k/uL Monocytes # 0.4 (0-1.0) k/uL Eosinophils # 1.0 H (0-0.7) k/uL Basophils # 0.1 (0-0.2) k/uL Sodium 136 L (137-145) mmol/L Potassium 4.8 (3.5-5.1) mmol/L Chloride 110 H (98-107) mmol/L Carbon Dioxide 20 L (22-30) mmol/L Anion Gap 6 mmol/L BUN 14 (7-17) mg/dL Creatinine 0.67 (0.52-1.04) mg/dL Est GFR (CKD-EPI)AfAm >90 (>60 ml/min/1.73 sqM) Est GFR (CKD-EPI)NonAf >90 (>60 ml/min/1.73 sqM) Glucose 92 (74-99) mg/dL Calcium 9.2 (8.4-10.2) mg/dL Influenza Type A (PCR) Not Detected (Not Detectd) Influenza Type B (PCR) Not Detected (Not Detectd) RSV (PCR) Not Detected (Not Detectd) SARS-CoV-2 (PCR) Not Detected (Not Detectd) - EKG Data -: EKG Interpreted by Me EKG Comments: 12-lead Electrocardiogram Interpretation Note EKG was reviewed and interpreted by myself. 12-lead ECG performed at 0641 is interpreted by me as revealing normal sinus rhythm at a rate of 89 beats per minute. [place] is normal. NC interval is 147 ms, QRS duration is 82 ms, QTc is 364 ms.. There were no ST or T wave abnormalities to suggest myocardial ischemia or injury. R wave progression across the precordium was satisfactory. By my interpretation this EKG is non-diagnostic for acute ischemia. Disposition Clinical Impression: Asthma Disposition: HOME SELF-CARE Condition: Good Instructions (If sedation given, give patient instructions): Asthma (ED) Prescriptions: predniSONE [Deltasone] 40 mg PO DAILY 5 Days #10 tab Albuterol Inhaler [Ventolin Hfa Inhaler] 1 - 2 puff INHALATION Q6H PRN #1 each PRN Reason: Dyspnea Azithromycin [Zithromax] 250 mg PO DAILY 4 Days #4 tab Is patient prescribed a controlled substance at d/c from ED?: No Referrals: None,Stated [Primary Care Provider] - 1-2 days Forms: Area PCPs Time of Disposition: 09:55
[2024-05-01 08:38] LABS: African American GFR (CKD) >90 (>60 ml/min/1.73 sqM); Anion Gap 6 mmol/L; Blood Urea Nitrogen 14 mg/dL (7-17); Calcium 9.2 mg/dL (8.4-10.2); Carbon Dioxide 20 mmol/L (22-30); Chloride 110 mmol/L (98-107); Glucose 92 mg/dL (74-99); Non-African American GFR(CKD) >90 (>60 ml/min/1.73 sqM); Potassium 4.8 mmol/L (3.5-5.1); Sodium 136 mmol/L (137-145)
--- NOTE | 2024-05-01 08:41 | XR ---
EXAMINATION TYPE: XR chest 2V DATE OF EXAM: 05/01/2024 COMPARISON: 11/13/2023 HISTORY: Chest pain TECHNIQUE: Frontal and lateral views of the chest are obtained. FINDINGS: There is no focal air space opacity. No evidence for pneumothorax. No pleural effusion. The cardiac silhouette size is within normal limits. The osseous structures are grossly intact. IMPRESSION: 1. No acute cardiopulmonary process.
[2024-05-01 09:08] VITALS: RESP 18
[2024-05-01] MEDS: AZITHROMYCIN 500 MG TAB PO STA (10:23)
[2024-05-01 10:28] VITALS: BP 131/91; PULSE 78; TEMP 97.8
== END 2024-05-01 10:26 | disposition home or self-care (01) ==
LOC: EC 06:29
DX: J44.89 Other specified chronic obstructive pulmonary disease (principal); Z88.8 Allergy status to other drugs, medicaments and biological substances; Z91.041 Radiographic dye allergy status
CPT/HCPCS: 99285; 96365; 96375; 36415; 94640 ×2; 93005; 80048; 85025; 87636; 71046; J3475; J2919

== ENCOUNTER 2024-05-16 23:46 | Emergency (ER) | payer OTHER ==
[2024-05-16 23:56] VITALS: TEMP 97.6
--- NOTE | 2024-05-17 00:27 | ED ---
SOB HPI - General Chief Complaint: Shortness of Breath Stated Complaint: Difficulty Breathing Time Seen by Provider: 05/16/24 23:55 Source: patient Limitations: no limitations - History of Present Illness Initial Comments: This 44-year-old woman presenting to have evaluation for what she believes is flareup of asthma. She states that she has been under a lot of stress, they ju st closed the deal on her house. She felt that she was getting chest tightness and a little bit of cough. She states that she was out of her albuterol inhaler so she used a Primatene mist inhaler. She then was feeling very anxious, shaky, having palpitations and presented here to have further evaluation. MD Complaint: shortness of breath, cough -: hour(s) Severity scale (1-10): 0 Consistency: constant Improves With: nothing Worsens With: nothing Known History Of: asthma Associated Symptoms: other (headache) Treatments Prior to Arrival: bronchodilator - Related Data Home Medications Medication Instructions Recorded Confirmed Albuterol Inhaler [Ventolin Hfa 1 puff INHALATION RT-QID PRN 05/01/24 05/01/24 Inhaler] Albuterol Nebulized [Ventolin 2.5 mg INHALATION RT-Q6H PRN 05/01/24 05/01/24 Nebulized] Loratadine [Claritin] 10 mg PO DAILY 05/01/24 05/01/24 Previous Rx's Medication Instructions Recorded Albuterol Inhaler [Ventolin Hfa 1 - 2 puff INHALATION Q6H PRN #1 05/01/24 Inhaler] each Azithromycin [Zithromax] 250 mg PO DAILY 4 Days #4 tab 05/01/24 predniSONE [Deltasone] 40 mg PO DAILY 5 Days #10 tab 05/01/24 Albuterol Inhaler [Ventolin Hfa 2 puff INHALATION Q4HR PRN #8 gm 05/17/24 Inhaler] predniSONE [Deltasone] 20 mg PO BID #8 tab 05/17/24 Allergies Allergy/AdvReac Type Severity Reaction Status Date / Time ascorbic acid Allergy Anaphylaxis Verified 05/16/24 23:56 [From Emergen-C Vitamin D-Calcium] calcium combination no.27 Allergy Anaphylaxis Verified 05/16/24 23:56 [From Emergen-C Vitamin D-Calcium] cholecalciferol (vitamin D3) Allergy Anaphylaxis Verified 05/16/24 23:56 [From Emergen-C Vitamin D-Calcium] diphenhydramine HCl Allergy Dyspnea/Chest Verified 05/16/24 23:56 [From Benadryl] Pain Iodinated Contrast Media Allergy Anaphylaxis Verified 05/16/24 23:56 [Iodinated Contrast Media - IV Dye] multivitamin with minerals Allergy Anaphylaxis Verified 05/16/24 23:56 [From Emergen-C Vitamin D-Calcium] methylprednisolone AdvReac shaky & Verified 05/16/24 23:56 [From Medrol] anxious Review of Systems ROS Statement: Those systems with pertinent positive or pertinent negative responses have been documented in the HPI. ROS Other: All systems not noted in ROS Statement are negative. Constitutional: Denies: fever, chills ENT: Denies: throat pain, congestion Respiratory: Reports: cough, dyspnea Cardiovascular: Denies: chest pain, palpitations Gastrointestinal: Denies: abdominal pain, vomiting, diarrhea Genitourinary: Denies: dysuria, hematuria Musculoskeletal: Denies: back pain Skin: Denies: rash Neurological: Reports: headache. Denies: weakness, numbness, confusion Past Medical History Past Medical History: Asthma, COPD, Fibromyalgia Additional Past Medical History / Comment(s): DDD, tmj, History of Any Multi-Drug Resistant Organisms: None Reported Past Surgical History: Adenoidectomy, Cholecystectomy, Ear Surgery, Tonsillectomy Past Anesthesia/Blood Transfusion Reactions: Motion Sickness, Postoperative Nausea & Vomiting (PONV) Past Psychological History: Anxiety, Depression Smoking Status: Never smoker Past Alcohol Use History: None Reported Past Drug Use History: Marijuana General Exam Limitations: no limitations General appearance: alert, in no apparent distress Head exam: Present: atraumatic, normocephalic Eye exam: Present: normal appearance. Absent: scleral icterus, conjunctival injection Neck exam: Present: normal inspection, full ROM Respiratory exam: Present: normal lung sounds bilaterally. Absent: respiratory distress, wheezes, rales, rhonchi, stridor Cardiovascular Exam: Present: regular rate, normal rhythm, normal heart sounds. Absent: systolic murmur, diastolic murmur, rubs, gallop GI/Abdominal exam: Present: soft. Absent: distended, tenderness, guarding, rebound, rigid, mass Extremities exam: Present: normal inspection, normal capillary refill. Absent: pedal edema, calf tenderness Back exam: Present: normal inspection. Absent: CVA tenderness (R), CVA tenderness (L) Neurological exam: Present: alert Skin exam: Present: warm, dry, intact, normal color. Absent: rash Course Vital Signs 05/16/24 05/16/24 05/17/24 23:49 23:57 00:37 Temperature 97.6 F Pulse Rate 91 90 Respiratory 22 22 20 Rate Blood Pressure 128/82 134/84 O2 Sat by Pulse 95 96 Oximetry 05/17/24 05/17/24 05/17/24 00:54 01:10 01:38 Temperature Pulse Rate 80 83 84 Respiratory 19 Rate Blood Pressure 128/94 O2 Sat by Pulse 95 Oximetry 05/17/24 03:19 Temperature Pulse Rate 75 Respiratory 16 Rate Blood Pressure 139/97 O2 Sat by Pulse 97 Oximetry Medical Decision Making - Medical Decision Making Was pt. sent in by a medical professional or institution (ABIODUN Shine, MIMEOGRAPH OPERATOR, urgent care, hospital, or half-way...) When possible be specific @ -[No] Did you speak to anyone other than the patient for history (EMS, parent, family, police, friend...)? What history was obtained from this source @ -[No] Did you review nursing and triage notes (agree or disagree)? Why? @ -[I reviewed and agree with nursing and triage notes] Were old charts reviewed (outside hosp., previous admission, EMS record, old EKG, old radiological studies, urgent care reports/EKG's, half-way records)? Report findings @ -[No old charts were reviewed] Differential Diagnosis (chest pain, altered mental status, abdominal pain women, abdominal pain men, vaginal bleeding, weakness, fever, dyspnea, syncope, headache, dizziness, GI bleed, back pain, seizure, CVA, palpatations, mental health, musculoskeletal)? @ -[Differential Dyspnea: Coronary syndrome, arrhythmia, tamponade, asthma, COPD, pulmonary embolism, pneumonia, pneumothorax, pulmonary effusion, anaphylaxis, diabetic ketoacidosis, flailed chest, pulmonary contusion, diaphragmatic rupture, anemia, neuromuscular, this is not meant to be an all-inclusive list. EKG interpreted by me (3pts min.). @ -[As above] X-rays interpreted by me (1pt min.). @ -[None done] CT interpreted by me (1pt min.). @ -[None done] U/S interpreted by me (1pt. min.). @ -[None done] What testing was considered but not performed or refused? (CT, X-rays, U/S, labs)? Why? @ -[None] What meds were considered but not given or refused? Why? @ -[None] Did you discuss the management of the patient with other professionals (professionals i.e. DrDaria, PA, MIMEOGRAPH OPERATOR, lab, RT, psych nurse, director of social media marketing, chief nuclear medicine technologist, teacher, fire management officer, business case analyst)? Give summary @ -[No] Was smoking cessation discussed for >3mins.? @ -[No] Was critical care preformed (if so, how long)? @ -[No] Were there social determinants of health that impacted care today? How? (Homelessness, low income, unemployed, alcoholism, drug addiction, transportation, low edu. Level, literacy, decrease access to med. care, fci, rehab)? @ -[No] Was there de-escalation of care discussed even if they declined (Discuss DNR or withdrawal of care, Hospice)? DNR status @ -[No] What co-morbidities impacted this encounter? (DM, HTN, Smoking, COPD, CAD, Cancer, CVA, ARF, Chemo, Hep., AIDS, mental health diagnosis, sleep apnea, morbid obesity)? @ -[None] Was patient admitted / discharged? Hospital course, mention meds given and route, prescriptions, significant lab abnormalities, going to OR and other pertinent info. @ -[hospital course] Undiagnosed new problem with uncertain prognosis? @ -[No] Drug Therapy requiring intensive monitoring for toxicity (Heparin, Nitro, Ins ulin, Cardizem)? @ -[No] Were any procedures done? @ -[No] Diagnosis/symptom? @ -[Acute exacerbation of asthma Acute, or Chronic, or Acute on Chronic? @ -[Acute Uncomplicated (without systemic symptoms) or Complicated (systemic symptoms)? @ -[Uncomplicated Side effects of treatment? @ -[No] Exacerbation, Progression, or Severe Exacerbation? @ -[Acute exacerbation of asthma Poses a threat to life or bodily function? How? (Chest pain, [place], OR, pneumonia, PE, COPD, DKA, ARF, appy, cholecystitis, CVA, Diverticulitis, Homicidal, Suicidal, threat to staff... and all critical care pts) @ -[No] - Lab Data Lab Results 05/17/24 Range/Units 00:53 Influenza Type A (PCR) Not Detected (Not Detectd) Influenza Type B (PCR) Not Detected (Not Detectd) RSV (PCR) Not Detected (Not Detectd) SARS-CoV-2 (PCR) Not Detected (Not Detectd) Disposition Clinical Impression: Asthma Disposition: HOME SELF-CARE Condition: Good Instructions (If sedation given, give patient instructions): Asthma (ED) Prescriptions: predniSONE [Deltasone] 20 mg PO BID #8 tab Albuterol Inhaler [Ventolin Hfa Inhaler] 2 puff INHALATION Q4HR PRN #8 gm PRN Reason: Wheezing Is patient prescribed a controlled substance at d/c from ED?: No Referrals: None,Stated [Primary Care Provider] - 1-2 days
[2024-05-17] MEDS: IBUPROFEN 400 MG TAB PO STA (00:34)
[2024-05-17] MEDS: ALBUTEROL NEBULIZED 2.5 MG/3 ML INHALATION STA (00:52)
[2024-05-17 03:21] VITALS: BP 139/97; PULSE 75; RESP 16
== END 2024-05-17 03:20 | disposition home or self-care (01) ==
LOC: EC 23:46
DX: J45.901 Unspecified asthma with (acute) exacerbation (principal); F12.90 Cannabis use, unspecified, uncomplicated; Z91.041 Radiographic dye allergy status; Z88.8 Allergy status to other drugs, medicaments and biological substances
CPT/HCPCS: 87636; 94640; 99285

== ENCOUNTER 2024-09-13 17:18 | Emergency (ER) | payer OTHER ==
--- NOTE | 2024-09-13 17:33 | ED ---
General Adult HPI - General Chief complaint: Shortness of Breath Stated complaint: SOB Time Seen by Provider: 09/13/24 17:25 Source: patient Mode of arrival: ambulatory Limitations: no limitations - History of Present Illness Initial comments: Dictation was produced using [employer] dictation software. please excuse any grammatical, word or spelling errors. Chief Complaint: 44-year-old female with shortness of breath History of Present Illness: Patient is a 44-year-old female presents with shortness of breath. 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 States that smelled like some sort of chemicals. States that she all of a sudden started to wheeze has short of breath. Patient sees her primary care doctor who manages her asthma. Patient [place] any chest pain. States that she is on control. The ROS documented in this emergency department record has been reviewed and confirmed by me. Those systems with pertinent positive or negative responses have been documented in the HPI. All other systems are other negative and/or noncontributory. - Related Data Home Medications Medication Instructions Recorded Confirmed Albuterol Nebulized [Ventolin 2.5 mg INHALATION RT-Q6H PRN 05/01/24 09/13/24 Nebulized] Albuterol Inhaler [Ventolin Hfa 2 puff INHALATION RT-Q4H PRN 09/13/24 09/13/24 Inhaler] Beclomethasone Dipropionate [Qvar 2 puff INHALATION DIRECTED 09/13/24 09/13/24 80mcg Redihaler] Allergies Allergy/AdvReac Type Severity Reaction Status Date / Time ascorbic acid Allergy Anaphylaxis Verified 09/13/24 18:05 [From [facility]gen-C Vitamin D-Calcium] calcium combination no.27 Allergy Anaphylaxis Verified 09/13/24 18:05 [From [facility] Vitamin D-Calcium] cholecalciferol (vitamin D3) Allergy Anaphylaxis Verified 09/13/24 18:05 [From [facility] Vitamin D-Calcium] diphenhydramine HCl Allergy Dyspnea/Chest Verified 09/13/24 18:05 [From Benadryl] Pain Iodinated Contrast Media Allergy Anaphylaxis Verified 09/13/24 18:05 [Iodinated Contrast Media - IV Dye] multivitamin with minerals Allergy Anaphylaxis Verified 09/13/24 18:05 [From Emergen-C Vitamin D-Calcium] methylprednisolone AdvReac shaky & Verified 09/13/24 18:05 [From Medrol] anxious Review of Systems ROS Statement: Those systems with pertinent positive or pertinent negative responses have been documented in the HPI. ROS Other: All systems not noted in ROS Statement are negative. Past Medical History Past Medical History: Asthma, COPD, Fibromyalgia Additional Past Medical History / Comment(s): DDD, tmj, History of Any Multi-Drug Resistant Organisms: None Reported Past Surgical History: Adenoidectomy, Cholecystectomy, Ear Surgery, Tonsillectomy Past Anesthesia/Blood Transfusion Reactions: Motion Sickness, Postoperative Nausea & Vomiting (PONV) Past Psychological History: Anxiety, Depression Smoking Status: Never smoker Past Alcohol Use History: None Reported Past Drug Use History: Marijuana General Exam - General Exam Comments Initial Comments: PHYSICAL EXAM: General Impression: Alert and oriented x3,dyspneic HEENT: Normocephalic atraumatic, extra-ocular movements intact, pupils equal and reactive to light bilaterally, mucous membranes moist. Cardiovascular: Heart regular rate and rhythm Chest: Dyspneic, Diffuse end expiratory wheezing Abdomen: abdomen soft, non-tender, non-distended, no organomegaly Musculoskeletal: Pulses present and equal in all extremities, no peripheral edema Motor: no focal deficits noted Neurological: CN II-XII grossly intact, no focal motor or sensory deficits noted Skin: Intact with no visualized rashes Psych: Normal affect and mood Limitations: no limitations Course Vital Signs 09/13/24 09/13/24 09/13/24 17:19 17:29 17:33 Temperature 98.0 F Pulse Rate 100 108 H Respiratory 26 H 26 H 28 H Rate Blood Pressure 132/107 O2 Sat by Pulse 97 97 Oximetry 09/13/24 09/13/24 17:35 17:52 Temperature Pulse Rate 92 90 Respiratory 18 Rate Blood Pressure 130/78 O2 Sat by Pulse 99 Oximetry EKG Findings - EKG Comments: EKG Findings:: My EKG interpretation: Ventricular rate 103, sinus tachycardia,. 127, QRS 82, QTc 356. No NV prolongation, no QTC prolongation, no ST or T-wave changes noted. Interpretation difficult secondary to significant artifact. Medical Decision Making - Medical Decision Making Was pt. sent in by a medical professional or institution (, PA, FINANCIAL SPECIALIST, urgent care, hospital, or retirement...) When possible be specific @ -No Did you speak to anyone other than the patient for history (EMS, parent, family, police, friend...)? What history was obtained from this source @ -No Did you review nursing and triage notes (agree or disagree)? Why? @ -I reviewed and agree with nursing and triage notes Were old charts reviewed (outside hosp., previous admission, EMS record, old EKG, old radiological studies, urgent care reports/EKG's, retirement records)? Report findings @ -No old charts were reviewed Differential Diagnosis (chest pain, altered mental status, abdominal pain women, abdominal pain men, vaginal bleeding, musculoskeletal, weakness, fever, dyspnea, syncope, headache, dizziness, GI bleed, back pain, seizure, CVA, palpatations, mental health)? @ -Differential Dyspnea: Coronary syndrome, arrhythmia, tamponade, asthma, COPD, pulmonary embolism, pneumonia, pneumothorax, pulmonary effusion, anaphylaxis, diabetic ketoacidosis, flailed chest, pulmonary contusion, diaphragmatic rupture, anemia, neuromuscular, this is not meant to be an all-inclusive list. EKG interpreted by me (3pts min.). @ -See above X-rays interpreted by me (1pt min.). @ -Chest x-ray shows no acute processes CT interpreted by me (1pt min.). @ -None done U/S interpreted by me (1pt. min.). @ -None done What testing was considered but not performed or refused? (CT, X-rays, U/S, labs)? Why? @ -None What meds were considered but not given or refused? Why? @ -None Was smoking cessation discussed for >3mins.? @ -No Were there social determinants of health that impacted care today? How? (Homelessness, low income, unemployed, alcoholism, drug addiction, transportation, low edu. Level, literacy, decrease access to med. care, custodial, rehab)? @ -No Was there de-escalation of care discussed even if they declined (Discuss DNR or withdrawal of care, Hospice)? DNR status @ -No What co-morbidities impacted this encounter? (DM, HTN, Smoking, COPD, CAD, Cancer, CVA, ARF, Chemo, Hep., AIDS, mental health diagnosis, sleep apnea, morbid obesity)? @ -Asthma Was patient admitted / discharged? Hospital course, mention meds given and route, prescriptions, significant lab abnormalities, going to OR and other pertinent info. @ -44-year-old female with asthma exacerbation. Vital signs upon arrival are within acceptable limits. Patient mildly distressed. Symptoms significantly improved with them. X-ray is negative. Patient reevaluated bedside at 6:51 PM. Will be discharged. Advised follow-up with primary care doctor. Did you discuss the management of the patient with other professionals (professionals i.e. , PA, FINANCIAL SPECIALIST, lab, RT, psych nurse, director social service, sales representative adding machines, teacher, business development officer, rehabilitation case coordinator)? Give summary @ -No Was critical care preformed (if so, how long)? @ -No Undiagnosed new problem with uncertain prognosis? @ -No Drug Therapy requiring intensive monitoring for toxicity (Heparin, Nitro, Insulin, Cardizem)? @ -No Were any procedures done? @ -No Diagnosis/symptom? Acute, or Chronic, or Acute on Chronic? Uncomplicated (without systemic symptoms) or Complicated (systemic symptoms)? @ -Asthma exacerbation Side effects of treatment? @ -No Exacerbation, Progression, or Severe Exacerbation? @ -No Poses a threat to life or bodily function? How? (Chest pain, [place], CA, pneumonia, PE, COPD, DKA, ARF, appy, cholecystitis, CVA, Diverticulitis, Homicidal, Suicidal, threat to staff... and all critical care pts) @ -yes Disposition Clinical Impression: Asthma Disposition: HOME SELF-CARE Condition: Good Instructions (If sedation given, give patient instructions): Asthma (ED) Is patient prescribed a controlled substance at d/c from ED?: No Referrals: None,Stated [Primary Care Provider] - 1-2 days Time of Disposition: 18:51
[2024-09-13] MEDS: ALBUTEROL NEBULIZED 2.5 MG/3 ML INHALATION STA (17:35)
[2024-09-13] MEDS: IPRATROPIUM 0.5 MG/2.5 ML NEBU INHALATION STA (17:36)
[2024-09-13] MEDS: dexAMETHasone 4 MG TAB PO STA (17:57)
[2024-09-13 17:59] VITALS: RESP 18
--- NOTE | 2024-09-13 18:28 | XR ---
EXAMINATION TYPE: XR chest 2V DATE OF EXAM: 09/13/2024 6:15 PM COMPARISON: Chest radiographs from 05/01/2024 CLINICAL INDICATION: Female, 44 years old with history of wheezing; [facility] TECHNIQUE: XR chest 2V Frontal and lateral views of the chest. FINDINGS: Lungs/Pleura: There is no evidence of pleural effusion, focal consolidation, or pneumothorax. Pulmonary vascularity: Unremarkable. Heart/mediastinum: Cardiomediastinal silhouette is unremarkable. Musculoskeletal: No acute osseous pathology. Other findings: None IMPRESSION: No acute cardiopulmonary disease/process. [facility], , 09/13/2024 6:26 PM
[2024-09-13 18:51] VITALS: PULSE 86
[2024-09-13 18:53] VITALS: BP 131/79; TEMP 98.7
== END 2024-09-13 19:00 | disposition home or self-care (01) ==
LOC: EC 17:18
CPT/HCPCS: 71046; 93005; 94640; 99285